=== PATIENT | male | born 1950 | race Caucasian/White ===

== ENCOUNTER 2025-04-16 16:28 | Inpatient (IN) | payer OTHER, SELFPAY ==
[2025-04-16] VITALS (9 sets, daily range): BP systolic 151–187; BP diastolic 72–112; BMI 49.1
--- NOTE | 2025-04-16 12:44 | ED.GENMED ---
History of Present Illness
<Ade Flanagan MD, Resident - Last Filed: 04/16/25 15:48>
General
Chief Complaint: Breathing Problem
Source: patient, spouse and family
Exam Limitations: none
Time Seen by Provider: 04/16/25 12:42
History of Present Illness
History of Present Illness:
74-year-old male with a past medical history of hypertension, anxiety, claustrophobia, panic disorder and who has not seen a medical provider in quite some time comes to the ED at the request of his family due to recent difficulty breathing for the
past couple of months. He has not been able to walk up a hill and his shortness of breath occurs mainly upon exertion. He also describes that his bilateral lower extremities have been swollen and the right has been discolored and releasing
discharge for a few months now. He went to the urgent care a few months back who recommended that he should get bilateral lower extremity ultrasounds but he never did.
Past History
<Ade Flanagan MD, Resident - Last Filed: 04/16/25 15:48>
Past History
ED Past Medical History: None; Negative Asthma, HTN, Hypercholesterolemia or NIDDM
ED Past Surgical History: Appendectomy
Social History
Tobacco: Smoker (Cigars)
Alcohol: Occasional (1-3 small bottles a week)
Drug: None
Personal:
Living: with family
Review of Systems
<Ade Flanagan MD, Resident - Last Filed: 04/16/25 15:48>
Review of Systems
Allergies reviewed?: Yes
Constitutional: Reports weight gain and fatigue
EENT: Reports no symptoms
Respiratory: Reports trouble breathing
Cardiac: Reports no symptoms
ABD/GI: Reports no symptoms
: Reports no symptoms
Musculoskeletal: Reports no symptoms
Skin: Reports other (Bilateral lower extremity skin pain)
Neurological: Reports no symptoms
Endocrine: Reports no symptoms
Hematologic/Lymphatic: Reports no symptoms
Psychiatric: Reports anxiety and other (Claustrophobic)
Phy Exam
<Ade Flanagan MD, Resident - Last Filed: 04/16/25 15:48>
General Physical Exam
General Presentation: mild distress
General Skin: warm and dry
General Habitus: obese
General Mental: alert
Cardiovascular Exam
Cardiovascular Exam: regular rate/rhythm, no murmur and normal peripheral pulses
Heart Sounds: normal
Pulmonary Exam
Pulmonary Exam: generalized wheezing and respiratory distress
Respiratory Effort: tachypnea
Oxygen Status: oxygen 6 liters via NC
Cough: no cough
Breath Sounds: Wheeze: right upper
Gastrointestinal Exam
Gastrointestinal Exam: non tender, soft and distended
Auscultation of Abdomen: normal
Musculoskeletal Exam
Musculoskeletal Exam: edema (Bilateral lower extremity)
Skin Exam
Skin Exam: redness (Right lower leg red, oozing)
Scores
<Ade Flanagan MD, Resident - Last Filed: 04/16/25 15:48>
Heart Failure Risk
Heart Failure Risk Score: Yes
History of Stroke or TIA: No
History of intubation for respiratory distress: No
Heart rate on ED arrival >/= 110: No
SaO2 <90% on arrival on room air: Yes
HR >/=110 during 3min walk test (or too ill to perform test): No
ECG has acute ischemic changes: No
Urea >/=12mmol/L (BUN 33.6mg/dL): No
Serum CO2>/=35mmol/L: Yes
Troponin I or T elevated to DE Level (0.4mg/dL): Yes
NT-proBNP >/=5,000ng/L (5,000pg/ml): No
HF Risk Score: 5
Admission Status: VERY HIGH RISK 39.8% Consider admission to hospital
<Jama Vizcarra MD - Last Filed: 04/16/25 19:50>
Heart Failure Risk
HF Risk Score: 5
Admission Status: VERY HIGH RISK 39.8% Consider admission to hospital
Course
<Ade Flanagan MD, Resident - Last Filed: 04/16/25 15:48>
Orders/Labs/Results
Orders:
Orders
04/16/25 Breakfast
Cholesterol Lowering
At Your Request: Limited Participation
Fluid Restriction: 1200 mL/day (40 oz)
Cholesterol Lowering: Sodium, 2 Gram
04/16/25 12:19
ECG [Electrocardiogram (*1)] Urgent
Reason for Study: Chest Pain
EKG- Treatment ONCE
04/16/25 13:35
Pulse Ox/cont/shift [RESP] Stat
Quantity: 1
04/16/25 13:52
Complete Blood Count/With Diff Urgent
Comprehensive Metabolic Panel Urgent
Magnesium Urgent
NT-proBNP Urgent
Troponin I Urgent
04/16/25 14:05
Dexamethasone Sod Phosphate [Decadron] 6 mg IV NOW STA
Furosemide [Lasix] 80 mg IV NOW STA
Ipratropium/Albuterol Sulfate [Duoneb] 3 ml INH R NOW ONE
04/16/25 14:06
Labetalol HCl [Trandate] 10 mg IV NOW STA
04/16/25 14:34
CR Chest Portable - 1 View Urgent
Comment:
Reason For Exam: sob
Reason Study Needs to be Portable: Patient Unstable
04/16/25 14:49
US Legs, Bilateral [US Periph Venous LOWER Ext Deon] Urgent
Comment:
Reason For Exam: leg swelling w pain
04/16/25 16:07
Admit/Transfer Patient As Directed
Co-Sign Provider:
Level of Care: Inpatient admission
Assign to:: IMU- Intermediate Care
Physician / Group: sharif
Diagnosis: CHF
Reason for Hospitalization: CHF
Expected length of stay greater than two midnights?: Yes
ELOS- Estimated Length of Stay in days: 3
I certify the patient meets the requirements for IP care: Yes
PRN Pain Medication Management As Directed
May give lesser potent ordered pain med per pt: Yes
preference::
Protocol:: Medication orders for pain may be administered in a
manner that supports deferring to patient preference
when the pt is:
- Requesting an ordered lesser potent pain medication.
Least to most potent pain medications are defined
as: acetaminophen < NSAID < tramadol < opioids
(morphine, oxycodone, hydromorphone).
- Requesting a lesser dose of the same medication IF
ORDERED.
- Requesting a less intrusive route of administration
if both routes are prescribed by the provider (PO <
IV).
04/16/25 16:08
Code Status As Directed
Resuscitation Status: Full Code
04/16/25 17:14
Echo 2D MMode Color/Doppler Routine
Reason for Study: heart failure
CARDIOLOGY CONSULT Routine
Consulting Provider: Akil Bradley
Was physician already notified: Yes
HF DIETARY CONSULT Routine
HF EDUCATOR CONSULT Routine
Comment:
Activity As Directed
Activity Level: As Tolerated
Intake/ Output As Directed
Frequency: Per unit guidelines
Patient Education As Directed
Type: CHF folder
Comment: give on admission. Document in Interdisciplinary Education record
Sleep Apnea Assessment by RN As Directed
Comment:
Physician Instructions:
Vital Signs As Directed
Frequency: Other
Additional Instructions:: Q12 or per unit guidelines if more frequent.
Weight As Directed
Frequency: Daily
Type of Scale: Standing Scale
Comment: Daily morning weight. If unable to stand, use balanced bed scale.
Weight As Directed
Frequency: Once
Type of Scale: Standing Scale
Comment: Upon Admission. If unable to stand, use balanced bed scale.
Pulse Ox/cont/shift [RESP] Routine
Quantity: 1
Special Instructions: Daily pulse oximetry at rest. If greater than 92% at rest also obtain pulse oximetry
while ambulating as tolerated.
DX Deep Vein Thrombosis Video Routine
04/16/25 18:00
Enoxaparin Sodium [Lovenox] 40 mg SC QPM
04/16/25 20:00
Troponin I Q6H
Comment: at admission & every 6 hours x 2 (3 total), ECG to be done with each level
04/17/25 02:00
Troponin I Q6H
Comment: at admission & every 6 hours x 2 (3 total), ECG to be done with each level
04/17/25 06:00
Basic Metabolic Panel IN AM
Cardiovascular Evaluation IN AM
Magnesium IN AM
TSH Reflex To Free T4 IN AM
04/17/25 08:00
Furosemide [Lasix] 40 mg IV BID AT 0800,1600
Losartan [Cozaar] 25 mg PO DAILY
04/18/25 06:00
Basic Metabolic Panel IN AM
04/19/25 06:00
Basic Metabolic Panel IN AM
Abnormal Lab Results
04/16/25
13:52
Hct 54.2 H %
(39.0-52.0)
MCV 96.3 H fL
(80.0-94.0)
MCHC 30.1 L g/dL
(33.0-37.0)
Abs Immat Gran (auto) 0.1 H 10^3/uL
(0-0.05)
Absolute Neuts (auto) 7.5 H 10^3/uL
(1.4-6.5)
Absolute Lymphs (auto) 0.6 L 10^3/uL
(1.2-3.4)
Absolute Monos (auto) 0.7 H 10^3/uL
(0.1-0.6)
Immature Gran % 0.9 H %
(0-0.5)
Neutrophils % 83.5 H %
(42.2-75.2)
Lymphocytes % 6.4 L %
(20.5-51.1)
Chloride 95 L mmol/L
(98-107)
Carbon Dioxide 38 H mmol/L
(22-30)
BUN 30 H mg/dl
(9-20)
Glucose 119 H mg/dl
(70-99)
Troponin I 0.296 H* ng/ml
04/16/25 13:52
04/16/25 13:52
Vital Signs
Initial and Last Documented VS:
Initial Vital Signs
Temp Pulse Resp BP Pulse Ox
98.5 F 90 24 166/110 80
04/16/25 12:27 04/16/25 12:27 04/16/25 12:27 04/16/25 12:27 04/16/25 12:27
Last Documented Vital Signs
Temp Pulse Resp BP Pulse Ox
98.4 F 77 26 151/94 94
04/16/25 17:34 04/16/25 18:30 04/16/25 18:30 04/16/25 18:14 04/16/25 18:30
<Jama Vizcarra MD - Last Filed: 04/16/25 19:50>
Orders/Labs/Results
Orders:
Orders
04/16/25 Breakfast
Cholesterol Lowering
At Your Request: Limited Participation
Fluid Restriction: 1200 mL/day (40 oz)
Cholesterol Lowering: Sodium, 2 Gram
04/16/25 12:19
ECG [Electrocardiogram (*1)] Urgent
Reason for Study: Chest Pain
EKG- Treatment ONCE
04/16/25 13:35
Pulse Ox/cont/shift [RESP] Stat
Quantity: 1
04/16/25 13:52
Complete Blood Count/With Diff Urgent
Comprehensive Metabolic Panel Urgent
Magnesium Urgent
NT-proBNP Urgent
Troponin I Urgent
04/16/25 14:05
Dexamethasone Sod Phosphate [Decadron] 6 mg IV NOW STA
Furosemide [Lasix] 80 mg IV NOW STA
Ipratropium/Albuterol Sulfate [Duoneb] 3 ml INH R NOW ONE
04/16/25 14:06
Labetalol HCl [Trandate] 10 mg IV NOW STA
04/16/25 14:34
CR Chest Portable - 1 View Urgent
Comment:
Reason For Exam: sob
Reason Study Needs to be Portable: Patient Unstable
04/16/25 14:49
US Legs, Bilateral [US Periph Venous LOWER Ext Deon] Urgent
Comment:
Reason For Exam: leg swelling w pain
04/16/25 16:07
Admit/Transfer Patient As Directed
Co-Sign Provider:
Level of Care: Inpatient admission
Assign to:: IMU- Intermediate Care
Physician / Group: sharif
Diagnosis: CHF
Reason for Hospitalization: CHF
Expected length of stay greater than two midnights?: Yes
ELOS- Estimated Length of Stay in days: 3
I certify the patient meets the requirements for IP care: Yes
PRN Pain Medication Management As Directed
May give lesser potent ordered pain med per pt: Yes
preference::
Protocol:: Medication orders for pain may be administered in a
manner that supports deferring to patient preference
when the pt is:
- Requesting an ordered lesser potent pain medication.
Least to most potent pain medications are defined
as: acetaminophen < NSAID < tramadol < opioids
(morphine, oxycodone, hydromorphone).
- Requesting a lesser dose of the same medication IF
ORDERED.
- Requesting a less intrusive route of administration
if both routes are prescribed by the provider (PO <
IV).
04/16/25 16:08
Code Status As Directed
Resuscitation Status: Full Code
04/16/25 17:14
Echo 2D MMode Color/Doppler Routine
Reason for Study: heart failure
CARDIOLOGY CONSULT Routine
Consulting Provider: Akil Bradley
Was physician already notified: Yes
HF DIETARY CONSULT Routine
HF EDUCATOR CONSULT Routine
Comment:
Activity As Directed
Activity Level: As Tolerated
Intake/ Output As Directed
Frequency: Per unit guidelines
Patient Education As Directed
Type: CHF folder
Comment: give on admission. Document in Interdisciplinary Education record
Sleep Apnea Assessment by RN As Directed
Comment:
Physician Instructions:
Vital Signs As Directed
Frequency: Other
Additional Instructions:: Q12 or per unit guidelines if more frequent.
Weight As Directed
Frequency: Daily
Type of Scale: Standing Scale
Comment: Daily morning weight. If unable to stand, use balanced bed scale.
Weight As Directed
Frequency: Once
Type of Scale: Standing Scale
Comment: Upon Admission. If unable to stand, use balanced bed scale.
Pulse Ox/cont/shift [RESP] Routine
Quantity: 1
Special Instructions: Daily pulse oximetry at rest. If greater than 92% at rest also obtain pulse oximetry
while ambulating as tolerated.
DX Deep Vein Thrombosis Video Routine
04/16/25 18:00
Enoxaparin Sodium [Lovenox] 40 mg SC QPM
04/16/25 20:00
Troponin I Q6H
Comment: at admission & every 6 hours x 2 (3 total), ECG to be done with each level
04/17/25 02:00
Troponin I Q6H
Comment: at admission & every 6 hours x 2 (3 total), ECG to be done with each level
04/17/25 06:00
Basic Metabolic Panel IN AM
Cardiovascular Evaluation IN AM
Magnesium IN AM
TSH Reflex To Free T4 IN AM
04/17/25 08:00
Furosemide [Lasix] 40 mg IV BID AT 0800,1600
Losartan [Cozaar] 25 mg PO DAILY
04/18/25 06:00
Basic Metabolic Panel IN AM
04/19/25 06:00
Basic Metabolic Panel IN AM
Abnormal Lab Results
04/16/25
13:52
Hct 54.2 H %
(39.0-52.0)
MCV 96.3 H fL
(80.0-94.0)
MCHC 30.1 L g/dL
(33.0-37.0)
Abs Immat Gran (auto) 0.1 H 10^3/uL
(0-0.05)
Absolute Neuts (auto) 7.5 H 10^3/uL
(1.4-6.5)
Absolute Lymphs (auto) 0.6 L 10^3/uL
(1.2-3.4)
Absolute Monos (auto) 0.7 H 10^3/uL
(0.1-0.6)
Immature Gran % 0.9 H %
(0-0.5)
Neutrophils % 83.5 H %
(42.2-75.2)
Lymphocytes % 6.4 L %
(20.5-51.1)
Chloride 95 L mmol/L
(98-107)
Carbon Dioxide 38 H mmol/L
(22-30)
BUN 30 H mg/dl
(9-20)
Glucose 119 H mg/dl
(70-99)
Troponin I 0.296 H* ng/ml
04/16/25 13:52
04/16/25 13:52
Vital Signs
Initial and Last Documented VS:
Initial Vital Signs
Temp Pulse Resp BP Pulse Ox
98.5 F 90 24 166/110 80
04/16/25 12:27 04/16/25 12:27 04/16/25 12:27 04/16/25 12:27 04/16/25 12:27
Last Documented Vital Signs
Temp Pulse Resp BP Pulse Ox
98.4 F 77 26 151/94 94
04/16/25 17:34 04/16/25 18:30 04/16/25 18:30 04/16/25 18:14 04/16/25 18:30
<Ade Flanagan MD, Resident - Last Filed: 04/16/25 15:48>
MDM/Problems Addressed
Differential Diagnosis Includes:
Most likely CHF, acute exacerbation COPD
Less likely PE, pneumonia, ACS
MDM/Problems Addressed:
Plan:
- Will check CBC, CMP, BNP plus trops, mag
- Will get two-view chest x-ray to check for any pneumonia, pulmonary edema
- EKG ordered and showed sinus rhythm with first-degree AV block, possible right ventricular hypertrophy and possible inferior and anterolateral infarct
- Rebandaged bilateral lower extremities, right continues to have discharge
- Patient hesitant to get further testing but convinced by his family to remain here and is willing to be admitted if necessary
<Ade Flanagan MD, Resident - Last Filed: 04/16/25 15:48>
*Pulse Oximetry
SaO2: 82
Nasal Cannula flow liters per minute: 4
Oxygen Mode of Delivery: Room air
*Critical Care Note
Total Time (30-74mins, 75-104mins- exclusive of procedures): Not Applicable
<Jama Vizcarra MD - Last Filed: 04/16/25 19:50>
*Pulse Oximetry
Patient hypoxic: yes
*EKG
Interpreted by ED Provider?: Yes
EKG Intrepretation Date: 04/16/25
Heart Rate: 90
Rate: normal
Rhythm: sinus and PVC's
Ischemia: T-wave inversion
<Ade Flanagan MD, Resident - Last Filed: 04/16/25 15:48>
Update Note
Update Note:
Will Give 80mg IV Lasix, start Duo Nebs treatment, start IV Decadron, start IV Labetalol due to increased blood pressure
Troponin elevated but most likely due to acute hypoxia. Will check bilateral lower ext ultrasound
Chest X-Ray unremarkable due to large body habitus
Admit to Tele recommended.
ED Attending Note
<Ade Flanagan MD, Resident - Last Filed: 04/16/25 15:48>
-
Portions of this chart may have been created with voice recognition software.� Occasional wrong word or��sound alike� substitutions may have occurred due to the inherent limitations of voice recognition software.
<Jama Vizcarra MD - Last Filed: 04/16/25 19:50>
ED Attending Note
Patient seen and examined by attending physician: Yes
ED Attending Note:
Patient presents to ED secondary to worsening shortness of breath, along with increased weight gain. Denies fever or chills. Denies coughing. Denies chest pain. Denies back pain. Denies nausea, vomiting, or diarrhea. Denies dizziness. Denies
loss of appetite. Denies recent travel or surgery. Patient unfortunately has not had any evaluation with primary care physician for a long period of time. Patient has noticed increased leg swelling, especially left leg, now with drainage of
fluids, along with diffuse pain. Patient smokes cigar. Drinks alcohol socially. Patient has been less active secondary to increased leg swelling and shortness of breath.
Physical Exam
General: mild distress, acutely ill. afebrile. obese
Head: nc/at. eomi
Neck: supple. no meningeal signs. no jvd
Heart: s1/s2 regular rate and rhythm
Lungs: no acute respiratory distress. clear bilaterally
Abdomen: normal bowel sounds. not tender. mild distention
Neuro: alert and oriented. no focal neurological deficits
Skin: LE B/L venous stasis noted with serosanguineous drainage
Psychiatric: well kept. interactive and cooperative
Extremities: b/l LE pitting edema. no calf tenderness
History and exam concerning for hypoxia, likely multifactorial, including underlying COPD along with fluid retention. Bilateral lower leg swelling noted with venous stasis changes. Doubtful for DVT or acute infection at this time. Patient
requiring 6 L of oxygen via nasal cannula. Patient will be admitted for further evaluation and treatment.
Discharge Plan
Departure
Patient Disposition: Admit
Date of Disposition: 04/16/25
Time of Disposition: 15:32
Admit to: Telemetry
Presentation/result/management discussed w/ accepting MD/DO: Hospitalist
Condition: Fair
Discharge Problem:
Acute and chronic respiratory failure with hypoxia
Interventions
Interventions:
*Risk Screen - Suicide Last Done: 04/16/25 17:51
*General Assessment Last Done: 04/16/25 14:06
*Neglect/Abuse Screening Last Done: 04/16/25 13:24
*ED- Fall Risk Assessment Last Done: 04/16/25 14:06
*ED COVID-19 Vaccine History Last Done: 04/16/25 14:06
*Nursing Disposition Last Done: 04/16/25 17:50
ED- Cardiac Assessment Last Done: 04/16/25 13:24
ED- Pulmonary Assessment Last Done: 04/16/25 13:24
Discharge Date and Time
Discharge Date/Time: 04/16/25 17:51
[2025-04-16 14:10] LABS: Hematocrit 54.2 % (39.0-52.0); Hemoglobin 16.3 g/dL (13.0-18.0); Mean Corp Hgb Conc. 30.1 g/dL (33.0-37.0); Mean Corpuscular Volume 96.3 fL (80.0-94.0); Nucleated Red Blood Cells % 0 % (-); Platelet Count 171 10^3/uL (130-400); Red Cell Dist. Width 14.2 % (11.5-14.5)
[2025-04-16] MEDS: LASIX 80 MG IV (14:19)
[2025-04-16] MEDS: DUONEB 3 ML INH (14:20)
[2025-04-16] MEDS: DECADRON 6 MG IV (14:20)
[2025-04-16 14:28] LABS: ALT (SGPT) 25 U/L (0-50); AST (SGOT) 34 U/L (17-59); Albumin 4.1 g/dl (3.5-5.0); Alkaline Phosphatase 63 U/L (38-126); Blood Urea Nitrogen 30 mg/dl (9-20); Calcium 8.4 mg/dl (8.4-10.2); Carbon Dioxide 38 mmol/L (22-30); Chloride 95 mmol/L (98-107); Glucose 119 mg/dl (70-99); Magnesium 2.1 mg/dl (1.6-2.3); Potassium 5.1 mmol/L (3.5-5.1); Sodium 137 mmol/L (135-145); Total Protein 7.5 g/dl (6.3-8.2); eGFR > 60.00
[2025-04-16] MEDS: TRANDATE 10 MG IV (14:29)
[2025-04-16 14:42] LABS: Troponin I 0.296 ng/ml
--- NOTE | 2025-04-16 15:46 | HPS.HSE ---
Family Physician
-
Family Physician: * NONE
Chief Complaint
-
sob
History of Present Illness
74-year-old male with a past medical history of hypertension, anxiety, claustrophobia, panic disorder presented to us with sob worse with exertion progressively getting worse for past few months. for past two weeks his legs got more swollen and it
is weeping. his abdomen and thigh is swollen. as per he might have gained 20lbs in past 6 months. Patient denies any headache, dizziness or syncope. Patient denied any fever, cough, congestion. Patient denied any chest pain. Patient denied
abdominal pain nausea vomiting diarrhea. Patient denied dysuria hematuria.
Patient received a dose of dexamethasone, Lasix, nebs, labetalol in ER. Admitting for further management
Medical History
Past Medical History
Past Medical History: Reports Other
Additional Past Medical History:
Obstructive sleep apnea
Morbid obesity, COPD, hypertension, panic/anxiety disorder
Past Surgical History: Reports Other
Additional Past Surgical History:
Appendectomy
Right neck excision
Social History
Tobacco: Former Smoker
Alcohol: None
Drug: None
Personal:
Living: With Family
Family History
Family History: Not pertinent
Allergies / Home Medications
Allergies reflects when Allergies were last updated in [facility].
Home Medications with original date entered in [facility]
Allergy/Medication List:
Allergies
Allergy/AdvReac Type Severity Reaction Status Date / Time
No Known Allergies Allergy Verified 04/16/25 12:32
Home Medications
losartan 25 mg tablet 25 mg PO DAILY 11/03/22
Review of Systems
-
Constitutional: Reports Weight Gain
EENT: Reports No Symptoms
Respiratory: Reports Trouble Breathing
Cardiac: Reports No Symptoms
Abdomen/GI: Reports No Symptoms
: Reports No Symptoms
Musculoskeletal: Reports Edema
Skin: Reports No Symptoms
Neurological: Reports Weakness
Endocrine: Reports No Symptoms
Hematologic/Lymphatic: Reports No Symptoms
Psych: Reports No Symptoms
Physical Exam
Vital Signs
Vital Signs
Temp Pulse Resp BP Pulse Ox
98.5 F 70 23 160/75 91
04/16/25 12:27 04/16/25 15:15 04/16/25 15:15 04/16/25 15:13 04/16/25 15:15
Physical Exam
General: Well Developed, Well Nourished and No Apparent Distress
HEENT: NormoCephalic, Moist mucous membranes and Atraumatic
Respiratory: Rales
Cardiac: S1/S2 and Regular Rhythm; No Murmur or Rub
GI: Soft, Non Tender, Non Distended and Normal Bowel Sounds; No Organomegaly
Rectal: Deferred by Provider
Musculoskeletal: No Clubbing, No Cyanosis and Other (Bilateral lower extremities, abdomen swollen)
Skin: No Rash
Neuro: Nonfocal/grossly intact
Psych: Calm
Laboratory Results
-
04/16/25 13:52
04/16/25 13:52
Laboratory Results
Total Bilirubin 1.0 mg/dl (0.2-1.3) 04/16/25 13:52
AST 34 U/L (17-59) 04/16/25 13:52
ALT 25 U/L (0-50) 04/16/25 13:52
Alkaline Phosphatase 63 U/L (38-126) 04/16/25 13:52
Troponin I 0.296 ng/ml H* 04/16/25 13:52
Data Reviewed
-
Diagnostic Radiology: Report Reviewed by me
Lab Data: Labs Reviewed by me
Impression/Plan
-
# Acute hypoxic respiratory failure multifactorial secondary to CHF
- Chest x-ray with impression of Examination is limited by relatively large body habitus.Lungs appear hypoinflated but clear of consolidation.Cardiac silhouette size is enlarged with no evidence for pulmonary edema.
- Obtain echocardiogram
- Diuretics continue
- Strict TANNER, daily weight
- Cardiology consult
- Nebs as needed for short of breath and wheezing
- Decadron in ER
- Obtain duplex of lower extremity
- Patient requiring 6 L of oxygen, continue supplemental oxygen to keep sat greater than 95, wean as tolerated
#Trop elevation likely NSTEMI
- Troponin 0.296
- EKG was sinus rhythm with first-degree AV block, incomplete right bundle branch block
- Continue to trend Trope
# Essential hypertension
- Losartan continued
#DVT prophylaxis
- Lovenox
# CODE STATUS
- Full code
--- NOTE | 2025-04-16 18:14 | PTCARENOTE ---
Patient arrived from ER, voided 750 upon arrival. Bilateral leg wounds open to air. Patient stating that he is feeling better. and patient oriented to plan of care and room policies.
--- NOTE | 2025-04-16 18:29 | W.PN.UPDATE ---
Update Note
Progress Note Update
This is an addendum to H&P written by Rosa Isela Solorio on 04/16/2025. �Patient seen and examined independently with CAREER DEVELOPMENT MANAGER.
74-year-old male past medical history of hypertension, obesity, COPD, anxiety/depression presenting with shortness of breath, lower extremity swelling with weeping from the legs, abdominal swelling and 20 pound weight gain. �No chest pain.
Vital signs show blood pressure 180s improved to 160s. �Patient requiring 4 L of oxygen.
Labs show BNP of 3600. �Troponin 0.296.
Chest x-ray shows no consolidation or pulm edema.
Venous ultrasound shows no evidence of DVT
Patient with hypoxemic respiratory insufficiency secondary to acute CHF exacerbation. �Also hypertensive emergency. �Nonischemic myocardial injury. �Blood pressure improved with labetalol.
40 IV Lasix twice daily. �Check echocardiogram. �Cardiology consulted. �Trend troponins.
--- NOTE | 2025-04-16 19:30 | PTCARENOTE ---
Patient received lying in bariatric sport bed, awake and alert, lying on left side. He c/o feeling tired. He currently denies CP, SOB, N/V. See crane hooker charted on worklist flowsheet. BBS diminished t/o. S1S2 regular. Pedal pulses diminished,
BLE 3+ pitting. BLE discolored, evelin and purplish discoloration. Posterior and lateral calves noted with dry wounds, no longer weeping. Abdomen large/obese and firm lower abdomen with marked swelling and pitting, evelin discoloration. Large lipoma
noted left upper back/lower neck. Patient is refusing any repositioning or cares. Oxygen at 6L/nc. SR with 1st degree AVB on CM. Patient keeps hanging feet off of bed despite being told numerous times that it isn't safe to be in this position. Sport
bed in low and locked position. Call payne within reach. Bed alarm on.
[2025-04-16] MEDS: LOVENOX 40 MG SC (20:56)
[2025-04-16] MEDS: MELATONIN 5 MG PO (20:57)
[2025-04-16] MEDS: TYLENOL 650 MG PO (21:50)
[2025-04-16 22:03] LABS: Troponin I 0.537 ng/ml
--- NOTE | 2025-04-16 22:30 | PTCARENOTE ---
Patient noted with oxygen sats in the 70s. Noted that patient had removed oxygen and he is sleeping with profound snoring, sleep apnea. FRANCISCO JAVIER Holland notified. Orders received for CPAP--patient refusing due to claustrophobia. Midflow orders available if
needed. Sats improved when oxygen replaced.
[2025-04-17] VITALS (37 sets, daily range): BP systolic 110–197; BP diastolic 57–114; PULSE 2–97; BMI 49.1; BMI 48.4
--- NOTE | 2025-04-17 02:50 | PTCARENOTE ---
Patient oxygen levels dropping with sleep to high 70s. Patient is poorly positioned in the bed, hanging feet over the siderail. Boosted with RN x4 assist. HOB up. Oxygenation levels improved with repositioning.
--- NOTE | 2025-04-17 03:35 | PTCARENOTE ---
Patient has notable sleep apnea. His sats are dropping to 85% on 6L. Respiratory therapy notified and request made for patient to be placed on midflow to improve sats.
[2025-04-17 05:18] LABS: Blood Urea Nitrogen 29 mg/dl (9-20); Calcium 8.2 mg/dl (8.4-10.2); Carbon Dioxide 39 mmol/L (22-30); Chloride 94 mmol/L (98-107); Estimated Creatinine Clearance 89 ml/min; Glucose 141 mg/dl (70-99); HDL Cholesterol 40 mg/dl; LDL Cholesterol, Calculated 67 mg/dl; Magnesium 2.2 mg/dl (1.6-2.3); Potassium 5.5 mmol/L (3.5-5.1); Sodium 140 mmol/L (135-145); Very Low Density Lipoprotein 13 mg/dl (0-30); eGFR > 60.00
[2025-04-17 05:36] LABS: Troponin I 0.420 ng/ml
--- NOTE | 2025-04-17 07:18 | PTCARENOTE ---
Report given verbally to Rocky hernandez RN. Questions answered.
--- NOTE | 2025-04-17 07:34 | CON.CAR ---
Addendum entered and electronically signed by Ashwin Maher MD 04/17/25 10:43:
74-year-old man admitted 04/16 with multifactorial dyspnea on exertion subsequently progressing to vent dependent respiratory failure, refusing BiPAP.
PMH: Hypertension, COPD, anxiety, claustrophobia, morbid obesity
PSH/SH/FH/allergies/meds/ROS: As below per Rosa Fernando, reviewed in detail and agree
Outpatient meds: Losartan
Inpatient meds: Aspirin 81 mg a day, fentanyl, MiraLAX, propofol, furosemide 80 mg IV twice daily, metoprolol 2.5 mg IV every 6
197/113, pulse 80, respiratory 28, on vent, afebrile sats 100%, awake, gesturing with his hands, following questions appears anxious, morbidly obese, exam very limited diminished breath sounds, regular rate rhythm without obvious murmurs or gallops
neck veins impossible to assess, severely obese abdomen, modest edema, neuro grossly nonfocal
ECG sinus rhythm, first-degree AV block, low voltage, anterolateral MS, ST-T changes, right axis deviation, incomplete right bundle branch block
chest x-ray probable left pleural effusion/elevated left hemidiaphragm Limited inspiration, cardiomegaly
White count 9, hemoglobin 16.3, ABG 7.41, VOV895, PO281, bicarb 41, proBNP 3600, troponin 0.537
Echo: pending
Impression:
Acute ventilator dependent respiratory failure, multifactorial, related to COPD, morbid obesity, and acute heart failure EF unknown
Other diagnoses as below per Rosa Fernando, note below reviewed in detail and agree unless otherwise specified
Plan:
He presents with vent dependent respiratory failure, likely reflecting severe COPD with an element of heart failure, acute on chronic EF unknown.
Troponin is elevated, suspect non-MS myocardial injury related to heart failure and COPD
Will check echocardiogram. And thereafter begin optimization of GDMT for heart failure based on ejection fraction. Suspect major issues are underlying morbid obesity with COPD.
However, if echo confirms marked reduction in EF related to ischemic cardiomyopathy and prior anterior lateral MS, it is conceivable that heart failure is the major grab driver of his presentation.
Further management to be based upon his hospital course.
Original Note:
Consultation
Consultation Request
Date/Time Consultation Performed: 04/17/25
Requesting Provider: Dr. Dunlap
Performing Provider: Rosa Fernando PA-C for Dr. NAVA Maher
Reason for Consultation: SOB
Medical History
-
Chief Complaint: SOB
History of Present Illness:
Patient is a 74 year old male with PMH of HTN, COPD, anxiety, significant claustrophobia, obesity who presented to [facility] due to SOB particularly upon exertion over the last several months. He has had limited interaction with medical providers as
outpatient due to a significant anxiety/claustrophobia. With reported lower extremity edema with oozing, and weight gain. Overnight patient refused BiPAP, and this morning with limited responsiveness to verbal stimuli and sternal rub. Also with
repetitive lip/tongue movements. ABG with pH 7.2. He was moved to ICU and planned for intubation. proBNP 3600.
PMH:
HTN
COPD
anxiety/claustrophobia
obesity
Past Medical History
Past Medical History: Other (in HPI)
Social History
Tobacco: Former Smoker (cigars)
Alcohol: Occasional
Personal:
Living: With Family
Employment: Retired
Family History
Family History: CAD and Diabetes
Allergies / Home Medications
Allergy/AdvReac Type Severity Reaction Status Date / Time
No Known Allergies Allergy Verified 04/16/25 12:32
�Medication �Instructions �Recorded �Confirmed �Type
losartan 25 mg tablet 25 mg PO DAILY Blood Pressure 11/03/22 04/16/25 History
Review of Systems
-
Unable to obtain full review of systems at this time due to: Patient Intubation
Physical Exam
Vital Signs
Temp Pulse Resp BP Pulse Ox
96.4 F L 84 19 158/87 88
04/17/25 04:37 04/17/25 07:00 04/17/25 07:00 04/17/25 06:00 04/17/25 07:00
Lab Results
04/16/25 13:52
04/17/25 04:30
Troponin I 0.420 ng/ml H* 04/17/25 04:30
Ite-I-Miwqjaiqdlx Pept 3600 pg/ml 04/16/25 13:52
Physical Exam
General: Other (repetitive lip/tongue movements. obese)
HEENT: Normocephalic, Anicteric and Moist Mucous Membranes
Respiratory: Other (no audible wheezes)
Cardiac: S1/S2, Regular Rhythm and Murmur
GI: Soft, Non Tender and Distended
Musculoskeletal: No Clubbing, No Cyanosis and Edema (4+ of B/L LE to level of thigh with discoloration and oozing)
Skin: Warm and Dry
Neuro: Awake (at times, but with limited responsiveness)
Impression / Plan
-
Primary Ged Instructor: last seen by Dr. Kim in 2022
Assessment:
Presentation with SOB
Acute hypoxic respiratory failure requiring urgent intubation 04/17/25
Acute CHF, unknown type
Suspected COPD exacerbation
Elevated troponin
Hyperkalemia
NSVT
HTN
anxiety/claustrophobia
obesity
Cardiac murmur
ECHO 04/17/25: pending
Plan:
- Patient presented with shortness of breath, lower extremity edema, weight gain
- proBNP 3600. Chest x-ray read as no clear pulmonary edema, however study was limited due to patient body habitus. Peripheral vascular ultrasound negative for DVT bilaterally
- Was given 80 mg IV Lasix last evening with good response. Currently on IV Lasix 40 mg twice daily, will increase dose to 80 IV twice daily and assess response. Creatinine stable
- Was transferred to ICU this morning, and underwent urgent intubation at bedside in ICU. Fruit Worker managing
- Blood pressure preintubation was significantly elevated at ~190/110, improved to 110/76 following intubation/sedation. Will follow
- echo pending
- trop peaked at 0.5 and now down trending. started asa. no acute ST abnormalities by EKG.
- also with some brief NSVT on tele overnight. follow K/mag and replete as needed. will add IV lopressor 2.5mg Q6H. hold OP losartan with hyperkalemia
- may require eventual ischemic evaluation. would favor completing inpatient as patient has history of noncompliance likely related to his anxiety
- d/w hospitalist, nursing
Data Reviewed
-
EKG: Tracing Personally Visualized and interpreted
Radiology: Report Reviewed by me
Ultrasound: Report Reviewed by me
Labs: Labs Reviewed by me
Old Records: Reviewed
--- NOTE | 2025-04-17 07:48 | PTCARENOTE ---
Pt found to be obtunded not responding to name or sternal rub RR called. Pt nnow on Bipap Bp 191/113 hr [address] 97% [address] Messina tt
[2025-04-17 07:49] LABS: Glucose - Point of Care 151 mg/dl (70-99)
[2025-04-17 07:58] LABS: B.E. 10.2 mmol/L; O2 Saturation % 96.8 % (94-98); PO2 99 mmHg (83-108)
[2025-04-17 08:00] LABS: PCO2 111 mmHg (35-48)
[2025-04-17 08:01] LABS: HCO3 44.4 mmol/L (21-28)
--- NOTE | 2025-04-17 08:10 | CON.INTV ---
Consultation
Consultation Request
Date/Time Consultation Requested: 04/17/25
Date/Time Consultation Performed: 04/17/25
Performing Provider: Musa
Reason for Consultation: Intubation
Medical History
-
History of Present Illness:
Patient is a 74-year-old male with previous history of hypertension, anxiety, former smoker with suspected COPD and CARLA (never formally diagnosed) presenting with shortness of breath, worsened with exertion. This has been progressively worsening
for the past few months. He had noted in the past 2 weeks that his legs were progressively swelling and weeping. Patient is noncompliant with outpatient follow-up and preventative care. He rarely sees providers as an outpatient. Per he may
have gained about 20 pounds in the last 6 months. He is morbidly obese. Chest x-ray demonstrating very profound low lung volumes. His initial ABG on arrival demonstrating pH 7.2, pCO2 111. Admitted to IMU for BiPAP. He refused overnight. The
patient became more progressively unresponsive throughout the night, rapid response called in IMU. He is now transferred to ICU for intubation.
No further history elicited from patient.
Past Medical History
Past Medical History: Other (see list below)
Social History
Tobacco: Former Smoker
Alcohol: None
Drug: None
Family History
Family History: Reviewed & Not Pertinent
Allergies / Home Medications
Allergies
Allergy/AdvReac Type Severity Reaction Status Date / Time
No Known Allergies Allergy Verified 04/16/25 12:32
Home Medications
�Medication �Instructions �Recorded �Confirmed �Last Taken �Type
losartan 25 mg tablet 25 mg PO DAILY Blood Pressure 11/03/22 04/16/25 02/01/23 History
Review of Systems
-
History Source: Transfer Record
Vitals / Labs / Diagnostic Testing
Vital Signs
Temp Pulse Resp BP Pulse Ox
97.5 F 80 28 197/113 95
04/17/25 07:52 04/17/25 07:47 04/17/25 07:47 04/17/25 07:47 04/17/25 07:47
Lab Data
04/16/25 13:52
04/17/25 04:30
Laboratory Results
04/17/25
07:45
pH 7.21 L
pCO2 111 H*
pO2 99
HCO3 44.4 H*
O2 Delivery Level
Diagnostic Testing:
Physical Exam
-
HEENT: Normocephalic, Anicteric and Other (retrognathia present)
Cardiovascular: S1/S2, Regular Rhythm and Peripheral Edema (weeping, with chronic venous stasis changes BL)
Respiratory: Clear (overall severely diminished) and Other (shallow breathing)
GI: Soft and Distended (obese, protuberant)
Neurology: Other (minimally responsive)
Skin: Warm and Dry
General: Other (lethargic, difficulty arousing)
Assessment
-
Patient is a 74-year-old male with previous history of hypertension, anxiety, former smoker with suspected COPD and CARLA (never formally diagnosed) presenting with shortness of breath, worsened with exertion. This has been progressively worsening
for the past few months. He had noted in the past 2 weeks that his legs were progressively swelling and weeping. Patient is noncompliant with outpatient follow-up and preventative care. He rarely sees providers as an outpatient. Per he may
have gained about 20 pounds in the last 6 months. He is morbidly obese. Chest x-ray demonstrating very profound low lung volumes. His initial ABG on arrival demonstrating pH 7.2, pCO2 111. Admitted to IMU for BiPAP. He refused overnight. The
patient became more progressively unresponsive throughout the night, rapid response called in IMU. He is now transferred to ICU for intubation.
Acute on chronic hypercarbic respiratory failure
Noncompliance with preventative care/CPAP
s/p intubation and mechanical ventilation
Suspect AECOPD
Suspect CHF exacerbation, unknown chronicity
LE edema
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
Obstructive sleep apnea
Morbid (severe) obesity due to excess calories
Chronic obstructive pulmonary disease, no prior PFTs for review
Essential (primary) hypertension
Former smoker
BCC s/p excision 2022
Plan
Lethargic and minimally arousable, not responding to sternal rub--decision for intubation for hypercarbia
Psychiatric history noted above including anxiety/depression, panic attack not on home meds
Pain/sedation: fent PRN and gtt if needed
RASS goals: 0 to -1
Hemodynamically stable, not requiring pressors.
Cardiac history reviewed--HTN, suspect CHF
No prior ECHO for review--new study pending
ProBNP >3000, agree with IV lasix
Monitor on telemetry
Intubated for acute on chronic CO2 retention, refused CPAP on admission
ABG 7.21/111/99/44.4--> 7.41/65/81/41.2/97%
Vent setting reviewed: AC 450/22/40/5+
Prior history of lung disease: suspect COPD and CARLA but has never seen OP Pulm
notes that she has been trying to get patient to see providers but he remains noncompliant
Supplemental O2 as indicated to maintain sats > 89%
CXR/CT reviewed indicating very low lung volumes
We had a serious discussion on BIPAP post extubation and compliance but patient was reluctant to answer/decide
Will need to FU discussion with family as his risk for re-intubation and tracheostomy is high
NPO, resume diet when able
Extrusion Machine Operator recommendations
Aspiration precautions, HOB > 30 degrees
Speech therapy eval can be considered if at elevated risk
GI prophylaxis if indicated for mechanical ventilation >48 hours, prior history of GERD, stress ulcer formation in the critically ill
Creat at baseline, no history of renal disease
Void trials
Follow urine output, critical I/Os
Replete electrolytes as needed
No signs/symptoms suspicious for infectious etiology at this time
Observe off antibiotics for now
Follow fever trend, WBC count
CBC stable, no signs of bleeding or coagulopathy.
DVT prophylaxis as assessed based on risk, including mechanical SCDs
Can transfuse if indicated for Hb <7, plt < 10
INR WNL
No prior h/o diabetes or thyroid disease
Monitor accuchecks PRN/SS coverage if needed
Hyperglycemia noted, will check HbA1c
Diagnostic Data
Chest X-Ray: 04/16/25- Examination is limited by relatively large body habitus. Lungs appear hypoinflated but clear of consolidation.
US 04/16/25- No evidence of deep venous thrombosis bilaterally.
CT Scan:
Echo:
PFT's:
Reports and relevant images were personally reviewed.
Critical Care time 75 mins -- The patient is admitted for acute critical illness for the treatment of vital organ failure and/or prevention of further life-threatening conditions. Total care includes time spent in review of history, physical exam,
medications, hemodynamic/ventilator parameters, laboratory data, imaging and discussion with house staff, pharmacy, respiratory therapy, golf sales manager, and nursing. Additional time spent at intubation, transfer to ICU, discussion with family.
--- NOTE | 2025-04-17 08:15 | PTCARENOTE ---
Dr Steve saw pt. Pt to ICU for intubation . Report to Lila Rn
--- NOTE | 2025-04-17 08:29 | W.PN.ANESINT ---
Anesthesia Intubation Note
- Intubation Note
Intubation Note:
Diagnosis: resp distress
Blade: videoscope mac 4
Tube Size: 8
Depth: 26 lip
Side Taped: right
Drugs Used: 100mg prop, 120 mg succ
Grade View: 1
EtCO2 Present: yes
Atraumatic: yes
Attempts: yes
Insertion Start and Stop Time: 815-820
SaO2 Pre:96
SaO2 Post:99
Glidescope Used: yes
Other Airway Adjustments:
Pre-Oxygenated: yes
Portable Chest X-Ray: no
RSI: no
Suctioned: no
Bilateral Breath Sounds Confirmed: yes
Vent Settings:
Settings per ___Attending Physician
--- NOTE | 2025-04-17 08:30 | W.PN.UPDATE ---
Addendum entered and electronically signed by Marva Dunlap MD 04/17/25 08:50:
Pt was wearing BiPAP, tongue movements, leg twitching, not responsive to verbal or physical stimuli. ABG as below--decision made to intubate. at bedside and aware
.
Original Note:
Update Note
Progress Note Update
Rapid response was called in room 3343. Upon arrival, patient was minimally responsive to sternal rub. Dr. Dunlap at bedside. ABG showed pH 7.21, PCO2 111, PO299, HCO3 44. Planned to intubate patient after transferring to ICU room [address] Dipika Vigil informed. Anesthesia called for intubation. Preintubation patient's blood pressure was 191/114. After intubation and dropped to 117/ 111 mmHg.
[2025-04-17 08:54] LABS: INR 1.07; PT 14.4 Sec (11.4-14.6)
[2025-04-17 08:55] LABS: APTT 21.2 Sec (23.4-35.0)
[2025-04-17] MEDS: SUBLIMAZE 100 MCG IV (08:56)
[2025-04-17 09:30] LABS: B.E. 12.9 mmol/L; O2 Saturation % 97.9 % (94-98); PCO2 65 mmHg (35-48); PO2 81 mmHg (83-108)
[2025-04-17 09:34] LABS: O2 Therapy %Oxygen/Room Air 60%
[2025-04-17 09:35] LABS: HCO3 41.2 mmol/L (21-28)
[2025-04-17] MEDS: SUBLIMAZE 50 MCG IV ×5 (09:45→20:55)
--- NOTE | 2025-04-17 10:10 | W.PN.HOSP.TC ---
Addendum entered and electronically signed by Marva Dunlap MD 04/17/25 19:58:
I saw and evaluated the patient independently. I reviewed the resident�s note and agree with findings and plan as documented by Dr. Neil.
Events of rapid responsive and update note noted.
GENERAL: well developed, well nourished, male, intubated and now more awake--asking for restraints to be loosened
HEENT: NC/AT--intubated
HEART: regular rate and rhythm, +S1, +S2
LUNGS : poor air movement bilaterally
ABDOM: soft, nontender, nondistended, + bowel sounds
EXT: no cyanosis, clubbing, or edema
NEUROLOGIC: grossly intact
Acute hypercapnic/hypoxemic respiratory failure--pt likely CO2 retainer chronically with elevated bicarb of >35--pt started on O2 and was up to 6L--noncompliant with meds, CARLA eval, etc--pt obtunded earlier requiring intubation---ABG pH 7.21, PCO2
111, PO299, HCO3 44--CXR limited--NPO--consult resolute professional--likely due to noncompliance--doubt PE but will rule out with CT chest PE protocol--more likely CHF from untreated CARLA with obesity/hypoventilation syndrome--apprec cards--will need more
aggressive diuresis (lasix 80- mg IV BID)--daily weights, I/Os--SBT likely in AM--discussion re: reintubation and following up with BiPAP and treatments had by resolute professional with family
Troponin elevation--likely due to nonmyocardial troponin elevation from hypoxia/hypercapnia but cannot rule out NSTEMI at this time as troponins are elevated--apprec cards--check ECHO--EKG showed normal sinus rhythm with first-degree AV block,
incomplete RBBB
COPD with likely chronic CO2 retention--no PFTs--will need Outpt pulm follow up
Essential hypertension with hypertensive urgency--elevated BPS--improved post intubation--consideration for cardene drip was undertaken but BP improved with intubation--when able cont losartan--may need IV BP meds
Claustrophobia/panic disorder-- Advised patient to follow with psychiatry outpatient
Morbid obesity- Affects all aspects of care
Noncompliance to medications--Affects all aspects of care--Restaurant Crew discussed high risk for respiratory distress and reintubation. He does not want to pursue tracheostomy but also does not want to pursue BiPAP or remain compliant with treatment.
Declines hospice.
DVT proph-- Lovenox
CODE STATUS-- full code--if pt remains noncompliant with treatment for BP, CARLA, COPD, CHF etc..then likely should be DNR/DNI with hospice as goal of treatment--as this is likely to happen again without serious lifestyle changes and medication
compliance
Total Critical Care Time 40 minutes. I was immediately available to the patient and staff. I personally examined, reviewed labs, diagnostic images/reports, interpretations, treatment plans, discussed patient care with other providers and family
or caregivers (if patient is unable to make decisions), entered orders as appropriate and documented the medical record.
Original Note:
Today's Communication/Plan
-
CT ordered to rule out pulmonary embolism though unlikely.
Will consult pulmonary and cardiology.
Per resolute professional Dr. Dipika Vigil, will likely continue ventilation for the next 24 hours with ongoing discussions regarding BiPAP and compliance to medications.
Assessment / Plan
Assessment / Plan
74-year-old male with a past medical history of hypertension, anxiety, claustrophobia, panic disorder presented to the ED with shortness of breath with exertion that has progressively gotten worse over the past few months. For the last 2 weeks he
has had increased leg swelling and they are now weeping. His abdomen and thigh are also swollen. Patient has gained 20 pounds last 6 months per . He denies syncope, dizziness, headache, fever, congestion, cough, chest pain, abdominal pain,
nausea, vomiting, diarrhea, dysuria or hematuria. Patient has not been compliant to prescription medications. He received a dose of dexamethasone, Lasix, nebs and labetalol in the ER and was admitted for acute hypoxic respiratory failure.
Assessment/plan:
# Acute hypercapnic respiratory failure
- ABG showed pH 7.21, PCO2 111, PO299, HCO3 44.
- Chest x-ray showed impression of examination limited by relatively large body habitus. Lungs appear hyperinflated but clear of consolidation. Cardiac silhouette size is enlarged with no evidence of pulmonary edema.
- Rapid response called, patient intubated by anesthesia. Admitted to ICU under Dr. Dipika Vigil.
- NPO
- Will order CT chest to rule out pulmonary embolism
- Continue diuretics, daily weight checks
- Will consult pulmonary, cardiology
# Trop elevation
-Troponin peaked at 0.5 last night. Will continue to trend troponin.
- EKG showed normal sinus rhythm with first-degree AV block, incomplete RBBB
# Essential hypertension
-Losartan continued
# Claustrophobia/panic disorder
- Advised patient to follow with psychiatry outpatient
# Morbid obesity
- Affects all aspects of care
# Noncompliance to medications
-Affects all aspects of care
-Restaurant Crew discussed high risk for respiratory distress and reintubation. He does not want to pursue tracheostomy but also does not want to pursue BiPAP or remain compliant with treatment. Declines hospice.
DVT prophylaxis Lovenox
CODE STATUS full
Anticipated Discharge: > 48 hours
Subjective/Interval History
-
Date of Service: April 17, 2025
74-year-old male with a past medical history of hypertension, anxiety, claustrophobia, panic disorder presented to the ED with shortness of breath with exertion that has progressively gotten worse over the past few months. For the last 2 weeks he
has had increased leg swelling and they are now weeping. His abdomen and thigh are also swollen. Patient has gained 20 pounds last 6 months per . He denies syncope, dizziness, headache, fever, congestion, cough, chest pain, abdominal pain,
nausea, vomiting, diarrhea, dysuria or hematuria. Rapid response was called around 8 AM this morning when patient was minimally responsive to sternal rub. Patient was reevaluated at 10:20 AM, and is trying to use his phone. Informed that patient
is intubated due to poor exchange. He nods his head to this information. Patient asks for his restraints to be loosened so he can use his phone
Objective Data
-
Labs:
Laboratory Results
04/17/25 04/17/25 04/17/25
04:30 07:45 08:20
PT
INR
APTT
HCO3 44.4 H*
Sodium 140 Pending
Potassium 5.5 H Pending
Chloride 94 L Pending
Carbon Dioxide 39 H Pending
BUN 29 H Pending
Creatinine 1.1 Pending
Glucose 141 H Pending
Calcium 8.2 L Pending
Total Bilirubin Pending
AST Pending
ALT Pending
Alkaline Phosphatase Pending
04/17/25 04/17/25
08:38 09:21
PT 14.4
INR 1.07
APTT 21.2 L
HCO3 41.2 H*
Sodium
Potassium
Chloride
Carbon Dioxide
BUN
Creatinine
Glucose
Calcium
Total Bilirubin
AST
ALT
Alkaline Phosphatase
Vital Signs:
Vital Signs
Temp Pulse Resp BP Pulse Ox
97.6 F 80 28 197/113 100
04/17/25 08:22 04/17/25 07:47 04/17/25 07:47 04/17/25 07:47 04/17/25 08:29
I&O
04/16/25 04/17/25 04/18/25
06:59 06:59 06:59
Intake Total 360 / 360
Output Total 2250 / 2250
Balance -1890 / -1890
Review of Systems
-
History Source: Family
All other systems: Reviewed and negative
Constitutional: Reports Weight Gain
EENT: Reports No Symptoms Reported
Respiratory: Reports Trouble Breathing
Cardiac: Reports No Symptoms
Abdomen/GI: Reports No Symptoms
Breast: Reports No Symptoms
Genitourinary: Reports No Symptoms
Musculoskeletal: Reports Edema
Skin: Reports No Symptoms
Neuro: Reports No Symptoms
Endocrine: Reports No Symptoms
Hematologic / Lymphatic: Reports No Symptoms
Allergy / Immunology: Reports No Symptoms
Physical Exam
-
General: Respiratory Distress, Intubated and Morbidly Obese
HEENT: Normocephalic, Atraumatic, Nose Appears Normal and Ears Appear Normal
Respiratory: Clear to Auscultation
Cardiac: Regular Rhythm and S1/S2
Breast: Deferred by me
Rectal: Deferred by Provider
Musculoskeletal: Edema, Right Lower Extrem (With weeping) and Edema, Left Lower Extrem (With weeping)
Skin: Warm
Neuro: Awake
Hematologic / Lymphatic: No Lymphadenopathy
Psych: Calm
Data Reviewed
-
Labs: Labs Reviewed by me and Discussed with Physician
Old Records: Reviewed
--- NOTE | 2025-04-17 10:16 | PTCARENOTE ---
Pt rec'd as emergent transfer to ICU from IMU at approx 0800 for intubation, see ABG results. Pt on bipap-non purposeful movements noted. Bedside report from Rocky LESLIE rec'd during transfer. Pt intubated in ICU 3360 by anesthesia at 08:20. Plan
discussed with and patient by Devil Tender, attending and cardiology. Pt is awake and responding to verbal commands, agitated and resistant to cares, gesturing to have restraints off, wanting Iphone, writing on paper, attempting to calm
patient. Education and emotional support given. PRN Fent boluses administered per NOV. Orders noted, labs drawn, CXR performed, please see worklist for assessment and futher documentation. Care ongoing.
[2025-04-17] MEDS: LASIX 80 MG IV ×2 (10:35→15:52)
[2025-04-17 10:46] LABS: ALT (SGPT) 22 U/L (0-50); AST (SGOT) 31 U/L (17-59); Albumin 3.7 g/dl (3.5-5.0); Alkaline Phosphatase 52 U/L (38-126); Blood Urea Nitrogen 31 mg/dl (9-20); Calcium 8.6 mg/dl (8.4-10.2); Chloride 93 mmol/L (98-107); Estimated Creatinine Clearance 98 ml/min; Glucose 146 mg/dl (70-99); Potassium 5.4 mmol/L (3.5-5.1); Sodium 140 mmol/L (135-145); Total Protein 7.1 g/dl (6.3-8.2); Triglycerides 51 mg/dl (10-149); eGFR > 60.00
--- NOTE | 2025-04-17 10:47 | WOUNDNOTE ---
L LATERAL LOWER LEG
--- NOTE | 2025-04-17 10:47 | WOUNDNOTE ---
L MEDIAL POSTERIOR LOWER LEG
--- NOTE | 2025-04-17 10:48 | WOUNDNOTE ---
R LATERAL POSTERIOR LOWER LEG
--- NOTE | 2025-04-17 10:48 | WOUNDNOTE ---
R MEDIAL POSTERIOR LOWER LEG
--- NOTE | 2025-04-17 10:50 | WOUNDNOTE ---
WON RN note: Patient admitted with acute and chronic respiratory failure, hypoxia.
See H&P for complete history. Lives with Khalida.
PMH: 74-year-old male with a past medical history of hypertension, anxiety, claustrophobia, panic disorder and who has not seen a medical provider in quite some time comes to the ED at the request of his family due to recent difficulty breathing for
the past couple of months. He has not been able to walk up a hill and his shortness of breath occurs mainly upon exertion. He also describes that his bilateral lower extremities have been swollen and the right has been discolored and releasing
discharge for a few months now.
Wound Location and type/assessment: Patient admitted with: B/L lower leg edema and weeping venous stasis ulcers. R leg mostly crusted with thin layer of calvo, scant weeping. L leg with scattered cluster of weeping serosanguineous drainage, no odor.
+ pedal pulses audible with Doppler. Heels are intact. Khalida at bedside stated that at home, patient sleeps with legs dependent. Patient recently intubated and transferred from IMU. Spoke to nurse Disa who stated she just assessed sacrum and
confirmed intact. Abdomen with blanchable pink skin no open sores, mild MASD in abdominal skin folds.
Appetite: NPO currently.
Pressure redistribution devices in place: on bariatric sports bed, turns with assist. Pillows under calves.
Plan: With assist of PCT applied Xeroform, ABD pads and rae to leg wounds. Janusz wraps knee high applied. Leg elevation when sitting in recliner chair. Dr. Dunlap at bedside and aware.
Updated nurse Lila on the above, care plan and will follow as needed.
Note to case management of equipment requested for discharge: VN for wound care if can't do.
Recommend follow up at wound care center upon discharge.
[2025-04-17 10:56] LABS: Carbon Dioxide 42 mmol/L (22-30)
--- NOTE | 2025-04-17 11:52 | CARDSERVLU ---
Echocardiogram with Lumason completed after protocol screening completed. Allergies verified.
Patent IV site: _left AC____
IV site flushed with 0.9% NaCl pre and post administration.
Diluted bolus method utilized to enhance visualization of ventricular feliz.
Total volume given: _5.0___ mL
Patient tolerated all procedures well without complications.
[2025-04-17 13:00] LABS: Glycohemoglobin (HgbA1c) 6.5 % (4.0-5.6)
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
--- NOTE | 2025-04-17 14:27 | PTCARENOTE ---
Pt's condom cath fell off, pt changed and rewashed with CHG wipes, entire linen change performed. PRN Fent bolus given for agitation. Care ongoing. Family at bedside, discussed plan with Dr. Mayorga.
[2025-04-17 15:07] LABS: Troponin I 0.364 ng/ml
[2025-04-17 15:08] LABS: ALT (SGPT) 22 U/L (0-50); AST (SGOT) 32 U/L (17-59); Albumin 3.8 g/dl (3.5-5.0); Alkaline Phosphatase 63 U/L (38-126); Blood Urea Nitrogen 30 mg/dl (9-20); Calcium 8.5 mg/dl (8.4-10.2); Chloride 90 mmol/L (98-107); Estimated Creatinine Clearance 109 ml/min; Glucose 119 mg/dl (70-99); Potassium 3.9 mmol/L (3.5-5.1); Sodium 137 mmol/L (135-145); Total Protein 7.0 g/dl (6.3-8.2); eGFR > 60.00
[2025-04-17 15:32] LABS: Carbon Dioxide 42 mmol/L (22-30)
--- NOTE | 2025-04-17 16:44 | CM ---
Patient seen at bedside in ICU with physicians. Patient present and patient lives with in a 2 story home with 2 steps to enter. Patient does not go to PCP and he goes to [facility] on [address] Patient intubated and has no home O2 or CPAP. CM
will continue to follow for discharge planning needs.
Plan; home with /VN vs SNF pending medical treatment plan
[2025-04-17] MEDS: LOVENOX 40 MG SC (17:41)
--- NOTE | 2025-04-17 18:12 | PTCARENOTE ---
Order for chest CT to r/o PE rec'd from resident. Order clarified, adjusted to 8 pm.
--- NOTE | 2025-04-17 18:33 | PTCARENOTE ---
Sat maintaining low 90s, pt sleeping. Fio2 increased to 65% by RT at this time. Pt arousable, following commands. Care ongoing.
[2025-04-17] MEDS: VERSED 2 MG IV ×2 (20:13→20:30)
--- NOTE | 2025-04-17 21:59 | PTCARENOTE ---
Pt received at 19:00. Ox2-3, drowsy but restless, easily arouable to verbal stimuli. Anxious and agitated when awake. #8 ETT, 24cm at the lip, repositioned from R to C. AC 22/450/65%/+5. Suctions for large amout of thick white secretions via ETT and
orally. Breath sounds diminished t/o. Sinus geovany w/ 1st degree AVB, HR 50. +3 LE edema. DP pulses weak but palpable. Abdomen round, firm. +bowel sounds, no BM noted at this time. 25condom cath in place, voiding yellow urine. Venous ulcers to B/L
LE--dressing remains intact at this time.
Pt taken for chest CTA approximately 20:81-[id number] CRNP made aware. PRN versed and fentanyl given for agitaiton involving CT scan. Upon returning to room, pt now calm and cooperative. Safe environment maintained, repositioned, call payne
within reach.
[2025-04-18] VITALS (30 sets, daily range): BP systolic 91–152; BP diastolic 55–91; PULSE 2–73; O2SAT 95; BMI 47.7
[2025-04-18] MEDS: SUBLIMAZE 50 MCG IV ×3 (01:07→06:25)
--- NOTE | 2025-04-18 01:40 | PTCARENOTE ---
Pt assessment grossly unchanged. Condom cath no longer intact, incontinent--x1 saturated pad. Pt repositioned and CHG bath provided.
--- NOTE | 2025-04-18 03:12 | PTCARENOTE ---
Pt coughing frequently and vent alarming for high pressure. Pt drowsy, responds to verbal stimuli. Nods yes when asked if he is in pain, PRN fentanyl IVP given.
[2025-04-18 03:32] LABS: ALT (SGPT) 21 U/L (0-50); AST (SGOT) 34 U/L (17-59); Albumin 3.5 g/dl (3.5-5.0); Alkaline Phosphatase 51 U/L (38-126); Blood Urea Nitrogen 36 mg/dl (9-20); Calcium 8.1 mg/dl (8.4-10.2); Chloride 92 mmol/L (98-107); Estimated Creatinine Clearance 98 ml/min; Glucose 130 mg/dl (70-99); Magnesium 2.1 mg/dl (1.6-2.3); Potassium 3.9 mmol/L (3.5-5.1); Sodium 138 mmol/L (135-145); Total Protein 6.6 g/dl (6.3-8.2); eGFR > 60.00
[2025-04-18 03:34] LABS: Hematocrit 50.4 % (39.0-52.0); Hemoglobin 15.6 g/dL (13.0-18.0); Mean Corp Hgb Conc. 31.0 g/dL (33.0-37.0); Mean Corpuscular Volume 93.3 fL (80.0-94.0); Nucleated Red Blood Cells % 0 % (-); Platelet Count 166 10^3/uL (130-400); Red Cell Dist. Width 14.2 % (11.5-14.5)
[2025-04-18 03:44] LABS: Carbon Dioxide 39 mmol/L (22-30)
--- NOTE | 2025-04-18 07:07 | W.PN.INTV ---
Today's Communication / Plan
Recommendations
CTA negative, IV diuresis continued
SBT and extubation today, patient in agreement to use BIPAP
Will advance diet/PT-OT post extubation
Reviewed with family
Assessment
-
Patient is a 74-year-old male with previous history of hypertension, anxiety, former smoker with suspected COPD and CARLA (never formally diagnosed) presenting with shortness of breath, worsened with exertion. This has been progressively worsening
for the past few months. He had noted in the past 2 weeks that his legs were progressively swelling and weeping. Patient is noncompliant with outpatient follow-up and preventative care. He rarely sees providers as an outpatient. Per he may
have gained about 20 pounds in the last 6 months. He is morbidly obese. Chest x-ray demonstrating very profound low lung volumes. His initial ABG on arrival demonstrating pH 7.2, pCO2 111. Admitted to IMU for BiPAP. He refused overnight. The
patient became more progressively unresponsive throughout the night, rapid response called in IMU. He is now transferred to ICU for intubation.
Acute on chronic hypercarbic respiratory failure
Noncompliance with preventative care/CPAP
s/p intubation and mechanical ventilation
Suspect AECOPD
Suspect CHF exacerbation, unknown chronicity
LE edema
Conditions present SHAREPOINT ARCHITECT
Obstructive sleep apnea
Morbid (severe) obesity due to excess calories
Chronic obstructive pulmonary disease, no prior PFTs for review
Essential (primary) hypertension
Former smoker
BCC s/p excision 2022
Plan
Lethargic and minimally arousable, not responding to sternal rub--decision for intubation for hypercarbia
Psychiatric history noted above including anxiety/depression, panic attack not on home meds
Pain/sedation: fent PRN and gtt discontinued, weaning off for SAT
RASS goals: 0 to -1
Hemodynamically stable, not requiring pressors.
Cardiac history reviewed--HTN, suspect CHF
No prior ECHO for review--new study reviewed, enlarged RV/mild-mod PH, CTA obtained to r/o PE--negative
ProBNP >3000, agree with IV lasix
Monitor on telemetry
Intubated for acute on chronic CO2 retention, refused CPAP on admission
ABG 7.21/111/99/44.4--> 7.41/65/81/41.2/97%
Vent setting reviewed: AC 450/22/40/5+
Prior history of lung disease: suspect COPD and CARLA but has never seen OP Pulm
Supplemental O2 as indicated to maintain sats > 89%
CXR/CT reviewed indicating very low lung volumes
We had a serious discussion on BIPAP post extubation and compliance but patient was reluctant to answer/decide
Will need to FU discussion with family as his risk for re-intubation and tracheostomy is high
Patient now in agreement to use BIPAP, planning for SBT and extubation today
NPO, resume diet when able
Garland Maker recommendations
Aspiration precautions, HOB > 30 degrees
Speech therapy eval can be considered if at elevated risk
GI prophylaxis if indicated for mechanical ventilation >48 hours, prior history of GERD, stress ulcer formation in the critically ill
Creat at baseline, no history of renal disease
Void trials
Follow urine output, critical I/Os
Replete electrolytes as needed
No signs/symptoms suspicious for infectious etiology at this time
Observe off antibiotics for now
Follow fever trend, WBC count
CBC stable, no signs of bleeding or coagulopathy.
DVT prophylaxis as assessed based on risk, including mechanical SCDs
Can transfuse if indicated for Hb <7, plt < 10
INR WNL
No prior h/o diabetes or thyroid disease
Monitor accuchecks PRN/SS coverage if needed
Hyperglycemia noted, will check HbA1c
Diagnostic Data
Chest X-Ray: 04/16/25- Examination is limited by relatively large body habitus. Lungs appear hypoinflated but clear of consolidation.
US 04/16/25- No evidence of deep venous thrombosis bilaterally.
CT Scan:
Echo: 04/17/25- Normal left ventricular chamber size. Mild concentric left ventricular hypertrophy. Normal left ventricular systolic function. Left ventricular ejection fraction is 55-60% by visual assessment. Flattened septum in systole and
diastole consistent with RV pressure and volume overload. Enlarged right ventricular size. Estimated pulmonary artery pressure of 39 mmHg assuming a right atrial pressure of 8 mmHg. Pulmonic valve is grossly normal but poorly visualized. Normal
pericardium and pleura without evidence of effusion. No prior echocardiograms available for review
PFT's:
Reports and relevant images were personally reviewed.
Critical Care time 45 mins -- The patient is admitted for acute critical illness for the treatment of vital organ failure and/or prevention of further life-threatening conditions. Total care includes time spent in review of history, physical exam,
medications, hemodynamic/ventilator parameters, laboratory data, imaging and discussion with house staff, pharmacy, respiratory therapy, materials supervisor, and nursing. Additional time spent at intubation, transfer to ICU, discussion with family.
Subjective Dataa
Subjective Data
Date of Service:
Date of Service: April 18, 2025
Chief Complaint: Resident Program Specialist Follow Up
Subjective:
Remains intubated, no acute events ON
CTA negative
Objective Data
Data Reviewed
Vital Signs / I&O / Oxygen:
Vital Signs
Temp Pulse Resp BP Pulse Ox
98.6 F 53 22 131/61 91
04/18/25 06:55 04/18/25 06:00 04/18/25 06:00 04/18/25 06:00 04/18/25 05:00
Intake and Output
04/17/25 04/18/25 04/19/25
06:59 06:59 06:59
Intake Total 360 / 360
Output Total 2250 / 2250 2500 / 2500
Balance -1890 / -1890 -2500 / -2500
SaO2 [A/C] 92
SaO2 91
Nasal Cannula flow liters per 6
minute
Physical Exam
General: Comfortable and Other (NAD, obese)
HEENT: Normocephalic, Anicteric and Moist Mucous Membranes
Cardiovascular: S1-S2, Regular Rhythm and Peripheral Edema (BL, chronic venous stasis changes noted)
Respiratory: Clear, Non-Labored Respirations and ET Tube
GI: Soft, Non Distended and Non Tender
Neurology: Awake, Alert, Oriented and Other (answering, nodding, writing)
Skin: Warm and Dry
Labs/Micro/Reports
Lab Data
04/18/25 03:05
04/18/25 03:05
Laboratory Results
04/17/25 04/17/25 04/17/25
07:45 08:38 09:21
PT 14.4
INR 1.07
APTT 21.2 L
pH 7.21 L 7.41
pCO2 111 H* 65 H
pO2 99 81 L
HCO3 44.4 H* 41.2 H*
O2 Delivery Level %oxygen/room air 60%
--- NOTE | 2025-04-18 07:45 | PTCARENOTE ---
Received pt intubated, with bilateral soft wrist restraints intact. He easily awakened with RN entering the room. Mouthing words and using hand gestures to communicate. He was also to write questions regarding the plan of care. I spent quite some
time informing him that it is a combination of medicines, diet, exercise, daily weight, limiting his salt intake, and utilizing Bipap mask for naps and HS for best outcomes and 'management' of CHF. Reiterated that it is not just one thing or
intervention to manage CHF, that it is a combination. He nodded his head in understanding. He was also informed that wearing the Bipap for naps and at bedtime was not negotiable, he MUST utilize it for the prevention of Co2 buildup in his blood that
makes him sleepy and not wake up. He nodded his head in understanding. Supportive care given. Left AC# 20g and left hand #22g protective catheters bloth flushed and patent. Good peripheral pulses, +2 L/E edema with redness noted. Compression therapy
maintained. #88ETT secured 24 cm left lip. Tolerating AC 22/450/.65/+5. Breath sounds anteriorly CTA, posteriorly tubular on the left midway up. Dim in both bases. Moderate white oral secretions. ETT secretion white to calvo small amounts. He has a
good cough. Morbidly obese. NPO. No enteral tube in place for meds ordered via tube. #25 short condom catheter inlace. Voiding dark yellow urine. He was instructed that he was being given his Lasix, the diuretic and it will make him void. He is
aware he has a condom catheter on. Safe environment maintained. Will continue to monitor.
[2025-04-18] MEDS: LOW STRENGTH ASPIRIN TUBE (07:56)
[2025-04-18] MEDS: LASIX 80 MG IV ×2 (07:56→16:17)
[2025-04-18] MEDS: MIRALAX TUBE (07:56)
--- NOTE | 2025-04-18 10:26 | PTCARENOTE ---
His and sister are at the bedside and were made aware fo the plan of care to extubate depending on his ABG. They verbalized their understanding. Supportive care provided.
--- NOTE | 2025-04-18 10:34 | PTCARENOTE ---
Repositioned. Was able to comfortably lay him flat to boost up in the bed.
[2025-04-18 10:39] LABS: B.E. 20.1 mmol/L; O2 Saturation % 98.4 % (94-98); PCO2 53 mmHg (35-48); PO2 86 mmHg (83-108)
[2025-04-18 10:40] LABS: HCO3 46.4 mmol/L (21-28)
--- NOTE | 2025-04-18 11:04 | W.PN.CARDCBS ---
Today's Communication / Plan
-
Continue IV Lasix
Aspirin/statin when oral access is available
Hold beta-buzz and monitor on telemetry
Impression / Plan
-
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 Kim in 2022
Assessment:
Presentation with SOB
Acute hypoxic respiratory failure requiring urgent intubation 04/17/25
Acute CHF, preserved ejection fraction
Suspected COPD exacerbation
Elevated troponin
Hyperkalemia
NSVT
HTN
anxiety/claustrophobia
obesity
Cardiac murmur
ECHO 04/17/25: NL LVEF 55-60%, flattened intraventricular septum, dilated RV, PASP 39mmHg
Plan:
- Developed acute respiratory failure requiring intubation and remains critically ill in the intensive care unit. ABG suggestive of hypercapnic respiratory failure. Likely multifactorial in part due to heart failure with preserved ejection fraction
as well as COPD and CARLA.
- Continue IV Lasix in an attempt to optimize his respiratory status
- Good UOP response to IV Lasix this far, would continue 80 IV twice daily
- Follow daily weight, Cr and electrolytes which are stable
- Trop peaked at 0.5 and now down trending
- No acute ST abnormalities by EKG
- Suspect this represents nonischemic myocardial injury troponin elevation in the setting of acute heart failure
- Medically manage for now with aspirin and statin when oral access is available
- Would defer ischemic evaluation at this time, can can be readdressed as an outpatient pending his clinical course
- Brief NSVT was noted on telemetry this admission. Sinus rhythm overnight.
- Replete K/mg
- Keep on telemetry
- Okay to hold off on Lopressor for now and monitor as this could worsen his COPD
- d/w nursing
CC: 33 minutes
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
Subjective
Date of Service: April 18, 2025
No acute overnight events. Patient remains intubated in the medical ICU. He is able to open eyes, track and follow commands this a.m.
Objective
Labs:
04/18/25 03:05
04/18/25 03:05
Labs
Hgb 15.6 g/dL (13.0-18.0) 04/18/25 03:05
Hct 50.4 % (39.0-52.0) 04/18/25 03:05
Plt Count 166 10^3/uL (130-400) 04/18/25 03:05
PT 14.4 Sec (11.4-14.6) 04/17/25 08:38
INR 1.07 04/17/25 08:38
APTT 21.2 Sec (23.4-35.0) L 04/17/25 08:38
Sodium 138 mmol/L (135-145) 04/18/25 03:05
Potassium 3.9 mmol/L (3.5-5.1) 04/18/25 03:05
BUN 36 mg/dl (9-20) H 04/18/25 03:05
Creatinine 1.0 mg/dL (0.7-1.3) 04/18/25 03:05
Glucose 130 mg/dl (70-99) H 04/18/25 03:05
Troponins
04/16/25 04/16/25 04/17/25
13:52 21:23 04:30
Troponin I 0.296 H* 0.537 H* D 0.420 H*
04/17/25 04/17/25
14:34 18:30
Troponin I 0.364 H* Cancelled
Vital Signs and I&O:
Vital Signs
Temp Pulse Resp BP Pulse Ox
98.6 F 66 30 131/75 90
04/18/25 06:55 04/18/25 11:00 04/18/25 11:00 04/18/25 10:01 04/18/25 11:03
Vital Signs
Temp Pulse Resp BP Pulse Ox
98.6 F 66 30 131/75 90
04/18/25 06:55 04/18/25 11:00 04/18/25 11:00 04/18/25 10:01 04/18/25 11:03
Intake & Output
04/16/25 04/17/25 04/18/25 04/19/25
06:59 06:59 06:59 06:59
Intake Total 360 / 360
Output Total 2250 / 2250 2500 / 2500 2425 / 2425
Balance -1890 / -1890 -2500 / -2500 -2425 / -2425
Physical Exam
Physical Exam
Gen: NAD
HEENT: NC/AT, sclera anicteric
Neck: No JVD
CV: RRR, NL s1/s2
Lungs: Mechanically ventilated
Abd: S/ND
: Mcclendon with clara urine.
Ext: 1+ LE edema b/l
Skin: Warm, dry.
Neuro: Sedated
[2025-04-18 12:17] LABS: Glucose - Point of Care 96 mg/dl (70-99)
--- NOTE | 2025-04-18 14:22 | PTCARENOTE ---
2 assist OOB to the chair w/rolling walker. Tolerated it well. Reinforced CHF instructions regarding daily weight & food selections. was also present for instructions.
--- NOTE | 2025-04-18 14:53 | W.PN.HOSP.TC ---
Addendum entered and electronically signed by Marva Dunlap MD 04/18/25 16:35:
I saw and evaluated the patient independently. I reviewed the resident�s note and agree with findings and plan as documented by Dr. Neil.
GENERAL: well developed, well nourished, male, intubated and awake
HEENT: NC/AT--intubated
HEART: regular rate and rhythm, +S1, +S2
LUNGS : better air movement bilaterally
ABDOM: soft, nontender, nondistended, + bowel sounds
EXT: no cyanosis, clubbing, or edema
NEUROLOGIC: grossly intact
Acute hypercapnic/hypoxemic respiratory failure--pt CO2 retainer chronically with elevated bicarb of >35 --noncompliant with meds, CARLA eval, etc--pt obtunded 04/17/25 requiring intubation---ABG pH 7.21, PCO2 111, PO299, HCO3 44--CXR limited--apprec
repairing calibrator--now extubated, passed speech eval--- CT neg for PE--more likely CHF from untreated CARLA with obesity/hypoventilation syndrome--apprec cards--cont aggressive diuresis (lasix 80 mg IV BID)--daily weights, I/Os--pt now agreeable to follow
up and wear BiPAP
Troponin elevation--likely due to nonischemic myocardial troponin elevation from hypoxia/hypercapnia--apprec cards--ECHO with preserved EF but volume overload--EKG showed normal sinus rhythm with first-degree AV block, incomplete RBBB--apprec cards
COPD with likely chronic CO2 retention--no PFTs--will need Outpt pulm follow up
Essential hypertension with hypertensive urgency--elevated BPS--improved post intubation--when able cont losartan
Claustrophobia/panic disorder-- Advised patient to follow with psychiatry outpatient
Morbid obesity- Affects all aspects of care
Noncompliance to medications--Affects all aspects of care--Alarm Mechanism Adjuster discussed high risk for respiratory distress and reintubation. He does not want to pursue tracheostomy but apparently will now be compliant with BiPAP
DVT proph-- Lovenox
CODE STATUS-- full code--if pt remains noncompliant with treatment for BP, CARLA, COPD, CHF etc..then likely should be DNR/DNI with hospice as goal of treatment--as this is likely to happen again without serious lifestyle changes and medication
compliance
can downgrade to IMU
Original Note:
Today's Communication/Plan
-
Regular solid and thin liquid diet as per speech eval.
Restarted losartan 25 Mg p.o. after extubation.
Continue diuretics.
Cardiology following
Recommending outpatient follow-up with PCP and to obtain sleep study when planning discharge.
Assessment / Plan
Assessment / Plan
74-year-old male with a past medical history of hypertension, anxiety, claustrophobia, panic disorder presented to the ED with shortness of breath with exertion that has progressively gotten worse over the past few months. For the last 2 weeks he
has had increased leg swelling and they are now weeping. His abdomen and thigh are also swollen. Patient has gained 20 pounds last 6 months per . He denies syncope, dizziness, headache, fever, congestion, cough, chest pain, abdominal pain,
nausea, vomiting, diarrhea, dysuria or hematuria. Patient has not been compliant to prescription medications. He received a dose of dexamethasone, Lasix, nebs and labetalol in the ER and was admitted for acute hypoxic respiratory failure. Day 3 of
admission. Patient was intubated after being diagnosed with acute hypercapnic respiratory failure with elevated blood pressure yesterday around 8 AM. His blood pressure decreased after being intubated. He became alert 1 hour after intubation was
performed and was answering questions appropriately by writing. Night was uneventful. He was extubated today and evaluated by speech therapy, and progressed to regular solids and thin liquids.
Assessment and plan:
# COPD with acute hypercapnic respiratory failure
# CHF with preserved ejection fraction
-Echo showed LVEF 55 to 60%
- Chest CT was negative for pulmonary embolism.
- Extubated today
- REGISTRAR MUSEUM suggests diet progression to regular solids and thin liquids
- Continue diuretics
- Recommend outpatient pulmonary follow-up.
# Elevated troponin�likely due to nonischemic myocardial injury
- Troponin peaked at 0.5. Repeat at 3 PM yesterday was 0.364.
- Cardiology following
# Obstructive sleep apnea
- Patient has refused sleep study, and remains noncompliant to medications.
- Recommend outpatient follow-up with PCP and to obtain a sleep study.
# Hypertension
- Losartan was held because patient was intubated. Will resume losartan 25 mg PO.
- Continue Lasix 80 Mg IV twice daily
# Morbid obesity
# non compliance to medications
- affects all aspect of care
DVT Lovenox.
Full code
Anticipated Discharge: 24 - 48 hours
Subjective/Interval History
-
Date of Service: April 18, 2025
74-year-old male with a past medical history of hypertension, CARLA, claustrophobia, panic disorder presented to the ED with progressive shortness of breath over months, leg swelling with weeping and weight gain. The patient had acute hypercapnic
respiratory failure with CO2 retention with elevated blood pressure after which he was intubated. BP improved after he was intubated. He has been non compliant to medications and refused sleep study despite excessive daytime sleepiness. He stated
he felt better and has no new complaints when evaluated at 9 AM this morning. Patient was extubated today. BP 131/69, AR 50, RR 22, afebrile, 93% on ventilator.
Objective Data
-
Labs:
Laboratory Results
04/18/25 04/18/25
03:05 10:18
WBC 10.3
Hgb 15.6
Hct 50.4
Plt Count 166
HCO3 46.4 H*
Sodium 138
Potassium 3.9
Chloride 92 L
Carbon Dioxide 39 H
BUN 36 H
Creatinine 1.0
Glucose 130 H
Calcium 8.1 L
Total Bilirubin 2.2 H D
AST 34
ALT 21
Alkaline Phosphatase 51
Vital Signs:
Vital Signs
Temp Pulse Resp BP Pulse Ox
98.6 F 73 26 134/73 94
04/18/25 06:55 04/18/25 14:00 04/18/25 14:00 04/18/25 14:00 04/18/25 14:00
I&O
04/17/25 04/18/25 04/19/25
06:59 06:59 06:59
Intake Total 360 / 360
Output Total 2250 / 2250 2500 / 2500 3250 / 3250
Balance -1890 / -1890 -2500 / -2500 -3250 / -3250
Review of Systems
-
History Source: Patient
All other systems: Reviewed and negative
Constitutional: Reports Weight Gain
EENT: Reports No Symptoms Reported
Respiratory: Reports Trouble Breathing
Cardiac: Reports No Symptoms
Abdomen/GI: Reports No Symptoms
Breast: Reports No Symptoms
Genitourinary: Reports No Symptoms
Musculoskeletal: Reports No Symptoms
Skin: Reports No Symptoms
Neuro: Reports No Symptoms
Endocrine: Reports No Symptoms
Hematologic / Lymphatic: Reports No Symptoms
Allergy / Immunology: Reports No Symptoms
Physical Exam
-
General: No Apparent Distress, Comfortable and Morbidly Obese
HEENT: Normocephalic, Atraumatic, Moist Mucous Membranes and Nose Appears Normal
Respiratory: Clear to Auscultation
Cardiac: Regular Rhythm and S1/S2
Breast: Deferred by me
GI: Soft, Nontender, Nondistended and Normal Bowel Sounds
Rectal: Deferred by Provider
Genito-urinary: No Costovertebral Tender
Musculoskeletal: No Clubbing, No Cyanosis, Edema, Right Lower Extrem and Edema, Left Lower Extrem
Skin: Other (Lower extremity wrapped due to weeping)
Neuro: AO x 3
Hematologic / Lymphatic: No Lymphadenopathy
Psych: Calm
Data Reviewed
-
CT Scan: Report Reviewed by me and Discussed with Physician
Medical Tests (Nuc Med, Echo etc): Report Reviewed by me and Discussed with Physician
Labs: Labs Reviewed by me and Discussed with Physician
Old Records: Reviewed
--- NOTE | 2025-04-18 15:04 | PTOTSP ---
Speech Therapy Evaluation
Pt seen for bedside swallow evaluation with present. Pt s/p extubation and with NPO order. Pt managed PO trials of regular and thins via straw (sequential and single sips) with what appeared to be adequate mastication, good oral clearance, and
coordinated swallow. Pt denied globus sensation and/or pain while swallowing. Intermittent throat clearing during PO trials, however, vocal quality remained clear. Pt at high risk of aspiration given history of abnormal chest x-ray, history of acute
hypoxic respiratory failure, COPD.
Recommendations:
1. Initiate Regular Diet and Thin liquids
2. Meds as tolerated
3. Standard aspiration precautions
4. ST to follow to monitor diet tolerance
--- NOTE | 2025-04-18 15:17 | CM ---
Patient seen at bedside with patient and sister also present with physicians in ICU. Patient was intubated at the time of the visit but has since been extubated and placed on a diet per chart review/physicians. CM will continue to follow for
discharge planning needs.
Plan; pending medical treatment plan; PT/OT assessment as appropriate.
[2025-04-18] MEDS: COLACE LIQUID 100 MG PO (16:24)
[2025-04-18] MEDS: LIPITOR 40 MG PO (17:05)
[2025-04-18] MEDS: LOVENOX 40 MG SC (17:05)
--- NOTE | 2025-04-18 17:14 | PTCARENOTE ---
Pt verbalized 'I can't believe I was this stupid and did this to myself'. Supportive care provided and reassured him again that this can be managed with him doing his part by following his prescribed diet and fluid restriction, and weighing himself
every day.
[2025-04-18 18:25] LABS: Glucose - Point of Care 110 mg/dl (70-99)
[2025-04-18 21:17] LABS: Glucose - Point of Care 111 mg/dl (70-99)
--- NOTE | 2025-04-18 21:30 | PTCARENOTE ---
Pt received at 19:00, at bedside. AOx3, pleasant and cooperative. Received on 4L NC, titrated down to 2L. Pulse ox 93-96%. Breath sounds diminshed t/o. SR w/ 1st degree AVB and prolonged QT. Palpable pulses. Abdomen rounded, non tender, +bowel
sounds. Condom cath in place, yellow urine.
--- NOTE | 2025-04-18 22:37 | PTCARENOTE ---
Pt falling asleep and desatting to 86%. RT placed pt on bipap. Within 5 minutes, pt rang wanting to take the bipap off stating 'i never went to sleep this early a day in my life' at 2230. Discussed with patient that if he is awake he can be off of
the bipap with the plan to be 12 midnight, per his request. However it was agreed that if he is to fall asleep again, I will give him the melatonin and he will go on the mask prior to midnight.
[2025-04-19] VITALS (16 sets, daily range): BP systolic 111–151; BP diastolic 68–86; PULSE 2–78; O2SAT 94–95; BMI 46.3
[2025-04-19] MEDS: MELATONIN 10 MG PO (00:04)
--- NOTE | 2025-04-19 02:11 | PTCARENOTE ---
Pt frequently requesting bipap settings/mask be adjusted. Settings remain as ordered, mask adjusted as needed. Pt states he cannot sleep with mask on. x1 order obtained for ativan, pt refused stating 'I asked you to help me, but not like that. I
already took something to sleep, I don't want no more drugs or this mask.' Explained to pt that this will help him sleep while on the mask and that it will then allow the mask to work. Reinforced the importance of keeping the mask on. RN left the
room as pt declined assistance or medication at this time. Pt remains on bipap currently.
[2025-04-19 06:36] LABS: Blood Urea Nitrogen 42 mg/dl (9-20); Calcium 7.9 mg/dl (8.4-10.2); Chloride 90 mmol/L (98-107); Estimated Creatinine Clearance 79 ml/min; Glucose 110 mg/dl (70-99); Potassium 3.8 mmol/L (3.5-5.1); Sodium 138 mmol/L (135-145); eGFR > 60.00
[2025-04-19 06:40] LABS: Carbon Dioxide 44 mmol/L (22-30)
[2025-04-19 06:56] LABS: Hematocrit 51.3 % (39.0-52.0); Hemoglobin 15.6 g/dL (13.0-18.0); Mean Corp Hgb Conc. 30.4 g/dL (33.0-37.0); Mean Corpuscular Volume 94.8 fL (80.0-94.0); Nucleated Red Blood Cells % 0 % (-); Platelet Count 175 10^3/uL (130-400); Red Cell Dist. Width 14.4 % (11.5-14.5)
--- NOTE | 2025-04-19 07:07 | W.PN.PUL3 ---
Today's Communication / Plan
-
Doing well post extubation, continue BIPAP nightly and PRN
CM consult for home set up, will need OP FU--can leave info in chart
IV diuresis ongoing
PT/OT, speech follow up
OOB today
Transfer to tele
Assessment
-
Patient is a 74-year-old male with previous history of hypertension, anxiety, former smoker with suspected COPD and CARLA (never formally diagnosed) presenting with shortness of breath, worsened with exertion. This has been progressively worsening
for the past few months. He had noted in the past 2 weeks that his legs were progressively swelling and weeping. Patient is noncompliant with outpatient follow-up and preventative care. He rarely sees providers as an outpatient. Per he may
have gained about 20 pounds in the last 6 months. He is morbidly obese. Chest x-ray demonstrating very profound low lung volumes. His initial ABG on arrival demonstrating pH 7.2, pCO2 111. Admitted to IMU for BiPAP. He refused overnight. The
patient became more progressively unresponsive throughout the night, rapid response called in IMU. He is now transferred to ICU for intubation.
Acute on chronic hypercarbic respiratory failure
Noncompliance with preventative care/CPAP
s/p intubation and mechanical ventilation, extubated 04/18
Suspect AECOPD
Suspect CHF exacerbation, unknown chronicity
LE edema
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
Obstructive sleep apnea
Morbid (severe) obesity due to excess calories
Chronic obstructive pulmonary disease, no prior PFTs for review
Essential (primary) hypertension
Former smoker
BCC s/p excision 2022
Plan
MS stable today, off sedation
Psychiatric history noted above including anxiety/depression, panic attack not on home meds
Pain/sedation: tylenol PRN
RASS goals: 0
Hemodynamically stable, not requiring pressors.
Cardiac history reviewed--HTN, suspect CHF
No prior ECHO for review--new study reviewed, enlarged RV/mild-mod PH, CTA obtained to r/o PE--negative
ProBNP >3000, agree with IV lasix --continue, transition to PO course
Monitor on telemetry
Cards following
Intubated for acute on chronic CO2 retention, extubated and tolerating BIPAP nightly 04/18
Prior history of lung disease: suspect COPD and CARLA but has never seen OP Pulm
Supplemental O2 as indicated to maintain sats > 89%
CXR/CT reviewed indicating very low lung volumes
Continue PAP nightly, CM consult for home set up
Diet advacement
Aspiration precautions, HOB > 30 degrees
Speech therapy eval can be considered if at elevated risk
GI prophylaxis if indicated
Creat at baseline, no history of renal disease
Void trials
Follow urine output, critical I/Os
Replete electrolytes as needed
No signs/symptoms suspicious for infectious etiology at this time
Observe off antibiotics for now
Follow fever trend, WBC count
CBC stable, no signs of bleeding or coagulopathy.
DVT prophylaxis as assessed based on risk, including mechanical SCDs
Can transfuse if indicated for Hb <7, plt < 10
INR WNL
No prior h/o diabetes or thyroid disease
Monitor accuchecks PRN/SS coverage if needed
Hyperglycemia noted, HbA1c 6.5--OP FU
Diagnostic Data
Chest X-Ray: 04/16/25- Examination is limited by relatively large body habitus. Lungs appear hypoinflated but clear of consolidation.
US 04/16/25- No evidence of deep venous thrombosis bilaterally.
CT Scan:
Echo: 04/17/25- Normal left ventricular chamber size. Mild concentric left ventricular hypertrophy. Normal left ventricular systolic function. Left ventricular ejection fraction is 55-60% by visual assessment. Flattened septum in systole and
diastole consistent with RV pressure and volume overload. Enlarged right ventricular size. Estimated pulmonary artery pressure of 39 mmHg assuming a right atrial pressure of 8 mmHg. Pulmonic valve is grossly normal but poorly visualized. Normal
pericardium and pleura without evidence of effusion. No prior echocardiograms available for review
PFT's:
Reports and relevant images were personally reviewed.
Total time spent on this consultation/encounter __51__ minutes which includes review of history, physical exam, medications, laboratory data, personal review of imaging, extensive review of outpatient records, discussion with care team and
respiratory therapy.
Subjective Data
-
Date of Service:
Date of Service: April 19, 2025
Chief Complaint: Pulmonary Follow Up
Subjective:
Transferred overnight to U
Doing well today, wore BIPAP for 6 hours
No new complaints
Objective Data
Data Reviewed
Vital Signs / I&O / Oxygen:
Vital Signs
Temp Pulse Resp BP Pulse Ox
97.8 F 56 17 151/86 92
04/19/25 03:09 04/19/25 06:00 04/19/25 06:00 04/19/25 05:00 04/19/25 06:00
Intake and Output
04/18/25 04/19/25 04/20/25
06:59 06:59 06:59
Intake Total 660 / 660
Output Total 2500 / 2500 4750 / 4750
Balance -2500 / -2500 -4090 / -4090
SaO2 [CPAP/PSV] 95
SaO2 [A/C] 93
SaO2 92
Nasal Cannula flow liters per 2
minute
Physical Exam
General: Comfortable and Other (NAD, morbidly obese)
HEENT: Normocephalic and Anicteric
Cardiovascular: S1-S2, Regular Rhythm and Peripheral Edema
Respiratory: Clear and Non-Labored Respirations
GI: Soft, Non Distended and Non Tender
Neurology: Awake, Alert, Oriented and No Motor Deficits
Skin: Warm and Dry
Labs/Micro/Reports
Lab Data
04/19/25 06:26
07/31/25 05:41
Laboratory Results
04/18/25
10:18
pH 7.55 H
pCO2 53 H
pO2 86
HCO3 46.4 H*
O2 Delivery Level Not Reportable
Microbiology
04/16/25 21:23 Nose MRSA Screen - Final
No Methicillin Resistant Staphylococcus aureus isolated.
[2025-04-19] MEDS: NOVOLOG FLEXPEN-MODERATE RESISTANCE SC ×3 (07:48→16:53)
[2025-04-19 07:58] LABS: Glucose - Point of Care 91 mg/dl (70-99)
--- NOTE | 2025-04-19 08:00 | PTCARENOTE ---
Pt rec'd from night RN in report at 07:15, tolerated bipap for approx 6 hours. Orders reviewed, plan of care discussed with MDs and patient, at bedside. Pt is agreeable to plan and verbalized gratitude for his care. Pt is AOx3, cooperative. Ate
100% of breakfast. Capnography ordered and applied, VBG drawn and sent, result communicated to Dr. Mayorga. Pt assisted oob with PT and seated up in chair, condom cath fell off and patient requested urinal instead. Wound care performed to bilat
legs. Pt downgraded to tele per Dr. Dunlap, pt updated. Brother now arrived to visit. Care ongoing.
[2025-04-19 08:13] LABS: Venous Blood Gas B.E. 17.6 mmol/L (-4 to +4); Venous Blood Gas O2 Sat % 96.8 %
--- NOTE | 2025-04-19 09:15 | W.PN.HOSP.TC ---
Addendum entered and electronically signed by Marva Dunlap MD 04/19/25 13:38:
I saw and evaluated the patient independently. I reviewed the resident�s note and agree with findings and plan as documented by Dr. Neil.
GENERAL: well developed, well nourished, male awake and in no apparent distress
HEENT: NC/AT
HEART: regular rate and rhythm, +S1, +S2
LUNGS : better air movement bilaterally
ABDOM: soft, nontender, nondistended, + bowel sounds
EXT: no cyanosis, clubbing--still with edema--legs wrapped
NEUROLOGIC: grossly intact
Acute hypercapnic/hypoxemic respiratory failure--pt CO2 retainer chronically with elevated bicarb of >35 --noncompliant with meds, CARLA eval, etc--pt obtunded 04/17/25 requiring intubation (ABG pH 7.21, PCO2 111, PO299, HCO3 44)--CXR limited--apprec
co chairman--now extubated, passed speech eval--- CT neg for PE--more likely CHF from untreated CARLA with obesity/hypoventilation syndrome--apprec cards--cont diuresis (lasix 80 mg IV BID)--adding spironolactone and hopefully Farxiga--daily weights,
I/Os--pt now agreeable to follow up and wear BiPAP
Troponin elevation--likely due to nonischemic myocardial troponin elevation from hypoxia/hypercapnia--apprec cards--ECHO with preserved EF but volume overload--EKG showed normal sinus rhythm with first-degree AV block, incomplete RBBB--cont diuresis
with lasix, aldactone--CM to robbins Farxiga
COPD with likely chronic CO2 retention--no PFTs--will need Outpt pulm follow up
Essential hypertension with hypertensive urgency--elevated BPS--improved post intubation--when able cont losartan
Claustrophobia/panic disorder-- Advised patient to follow with psychiatry outpatient--PRN HS ativan for tolerating BiPAP--try dropping setting to 08/27
Morbid obesity- Affects all aspects of care
Noncompliance to medications--Affects all aspects of care--Fuel Assembler discussed high risk for respiratory distress and reintubation. He does not want to pursue tracheostomy but apparently will now be compliant with BiPAP
DVT proph-- Lovenox
CODE STATUS-- full code--if pt remains noncompliant with treatment for BP, CARLA, COPD, CHF etc..then likely should be DNR/DNI with hospice as goal of treatment--as this is likely to happen again without serious lifestyle changes and medication
compliance
can downgrade to tele
Original Note:
Today's Communication/Plan
-
Continue Lasix 80 Mg IV twice daily
Will monitor patient. Downgrade from IMU to telemetry
Assessment / Plan
Assessment / Plan
74-year-old male with a past medical history of hypertension, CARLA, claustrophobia, panic disorder presented to the ED with progressive dyspnea, leg swelling with weeping and weight gain.�
Patient has not been compliant to prescription medications/ outpatient follow up in the past. He was diagnosed with acute hypercapnic/hypoxic respiratory failure with elevated blood pressure. Patient intubated on 04/17/25, and extubated on
04/18/2025. Progressed to regular solid and thin liquid diet.
Assessment and plan:
# COPD with acute hypoxic/hypercapnic respiratory failure
# CHF with preserved ejection fraction
- Echo showed LVEF 55 to 60%
- Chest CT was negative for pulmonary embolism.
- Tolerated BiPAP for 6 hours yesterday
- Continue Lasix 80 Mg IV twice daily.
- Recommend outpatient pulmonary follow-up
# Elevated troponin�likely due to nonischemic myocardial injury
- Troponin peaked at 0.5, down trended thereafter
- Cardiology following
# Obstructive sleep apnea
- Recommend outpatient follow-up with PCP and to obtain a sleep study. Patient agreeable to this plan as of today.
# Hypertension
- Continue losartan 25 mg PO.
- Continue Lasix 80 Mg IV twice daily
# Morbid obesity
# non compliance to medications
- affects all aspect of care
DVT Lovenox.
Full code
PCP: Dr. Victoriano Phillips
Anticipated Discharge: Within 24 hours
Subjective/Interval History
-
Date of Service: April 19, 2025
74-year-old male with a past medical history of hypertension, CARLA, claustrophobia, panic disorder presented to the ED with progressive dyspnea, leg swelling and weight gain.�
Intubated yesterday The patient had acute hypercapnic respiratory failure with CO2 retention with elevated blood pressure after which he was intubated. ABG pH 7.21, PCO2 111, PO299, HCO3 44-BP improved after he was intubated on 04/17/25. He has been
non-compliant to medications and refused sleep study despite excessive daytime sleepiness. Patient was extubated yesterday 04/18. Passed speech evaluation and progressed to regular solids and thin liquids. Patient was able to get out of bed into his
chair yesterday. He tolerated BiPAP for 6 hours yesterday. Patient refused Ativan prior to BiPAP and claims he did not know what it was for. Patient would like Ativan before BiPAP today. Patient expresses that he is agreeable to being compliant
with outpatient follow-up given his severity of symptoms. He states 'I do not want to feel like this ever again.'
Objective Data
-
Labs:
Laboratory Results
04/19/25 04/19/25 04/19/25
04:10 05:41 06:26
WBC 8.1
Hgb 15.6
Hct 51.3
Plt Count 175
Sodium Cancelled 138
Potassium Cancelled 3.8
Chloride Cancelled 90 L
Carbon Dioxide Cancelled 44 H
BUN Cancelled 42 H
Creatinine Cancelled 1.2
Glucose Cancelled 110 H
Calcium Cancelled 7.9 L
Vital Signs:
Vital Signs
Temp Pulse Resp BP Pulse Ox
98.2 F 71 20 141/79 93
07/31/25 07:49 04/19/25 07:47 04/19/25 07:47 04/19/25 07:47 04/19/25 07:48
I&O
04/18/25 04/19/25 04/20/25
06:59 06:59 06:59
Intake Total 660 / 660 118 / 118
Output Total 2500 / 2500 4750 / 4750
Balance -2500 / -2500 -4090 / -4090 118 / 118
Review of Systems
-
History Source: Patient
All other systems: Reviewed and negative
Constitutional: Reports Weight Gain
EENT: Reports No Symptoms Reported
Respiratory: Reports Trouble Breathing
Cardiac: Reports No Symptoms
Abdomen/GI: Reports No Symptoms
Breast: Reports No Symptoms
Genitourinary: Reports No Symptoms
Musculoskeletal: Reports No Symptoms
Skin: Reports Other (Lower extremity weeping)
Neuro: Reports No Symptoms
Endocrine: Reports No Symptoms
Hematologic / Lymphatic: Reports No Symptoms
Allergy / Immunology: Reports No Symptoms
Physical Exam
-
General: Morbidly Obese
HEENT: Normocephalic, Atraumatic and Moist Mucous Membranes
Respiratory: Clear to Auscultation
Cardiac: S1/S2
Breast: Deferred by me
GI: Soft, Nontender, Nondistended and Normal Bowel Sounds
Rectal: Deferred by Provider
Genito-urinary: No Costovertebral Tender
Musculoskeletal: No Clubbing, No Cyanosis and No Edema
Neuro: AO x 3
Hematologic / Lymphatic: No Lymphadenopathy
Psych: Calm
Data Reviewed
-
Labs: Labs Reviewed by me and Discussed with Physician
Old Records: Reviewed
[2025-04-19] MEDS: LASIX 80 MG IV ×2 (09:21→16:01)
[2025-04-19] MEDS: MIRALAX 17 GRAMS TUBE (09:22)
[2025-04-19] MEDS: LOW STRENGTH ASPIRIN 81 MG TUBE (09:23)
[2025-04-19] MEDS: COZAAR 25 MG PO (09:23)
--- NOTE | 2025-04-19 11:21 | W.PN.CARDCBS ---
Today's Communication / Plan
-
Add spironolactone
Case management to robbins SGLT2 antagonist, and if possible
Continue IV Lasix
From my standpoint, could leave ICU
Impression / Plan
-
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 Kim in 2022
Assessment:
Acute hypoxic respiratory failure requiring urgent intubation 04/17/25
Acute CHF, preserved ejection fraction
Suspected COPD exacerbation
Elevated troponin
Hyperkalemia
NSVT
HTN
anxiety/claustrophobia
obesity
Cardiac murmur
ECHO 04/17/25: NL LVEF 55-60%, flattened intraventricular septum, dilated RV, PASP 39mmHg
Plan:
He is considerably improved, now extubated and comfortable.
However, still significantly volume overloaded.
Defer management of acid-base issues to pulmonary.
Continue IV furosemide.
Will add spironolactone 25 mg daily.
Add Farxiga 10 mg daily if not cost prohibitive.
No additional nonsustained VT.
Troponin is modestly elevated, likely non-PR myocardial injury. We can consider an outpatient myocardial perfusion PET/CT
From my standpoint, could leave intensive care unit.
CC: 35 minutes
Progress Note - Local Sales Manager
Subjective
Date of Service: April 19, 2025:
74-year-old man admitted 04/16 with multifactorial dyspnea on exertion subsequently progressing to vent dependent respiratory failure, refusing BiPAP.
PMH: Hypertension, COPD, anxiety, claustrophobia, morbid obesity
PSH/SH/FH/allergies/meds/ROS: As below per Rosa Fernando, reviewed in detail and agree
Outpatient meds: Losartan
Medications: Lovenox, MiraLAX, furosemide 80 mg IV twice daily, aspirin 81 mg daily, atorvastatin 40 mg daily, losartan 25 mg a day
141/79, pulse 71, respiratory 20, afebrile, intake and output -3.2 L, weight is 146.5 kg was 161.5 kg at admission and 150.8 kg, extubated, no complaints, morbidly obese, lungs are diminished but relatively clear, regular rate and rhythm, no obvious
murmurs JVD hard to assess 2+ edema
Echo 04/17/2025: EF 55-60%, mild LVH, flattened septum, dilated RV, pulmonary artery systolic pressure 39 mmHg, no significant valvular disease
Hemoglobin 15.6, white count 8.1, platelets 175, ABG 7.55 pCO2 53, PO286, bicarb 46, BUN/creatinine 42 and 1.2, potassium 3.8
CT scan of chest - NAD
ECG sinus rhythm, first-degree AV block, poor R wave progression
Objective
Labs:
04/19/25 06:26
04/19/25 05:41
Labs
Hgb 15.6 g/dL (13.0-18.0) 04/19/25 06:26
Hct 51.3 % (39.0-52.0) 04/19/25 06:26
Plt Count 175 10^3/uL (130-400) 04/19/25 06:26
PT 14.4 Sec (11.4-14.6) 04/17/25 08:38
INR 1.07 04/17/25 08:38
APTT 21.2 Sec (23.4-35.0) L 04/17/25 08:38
Sodium 138 mmol/L (135-145) 04/19/25 05:41
Potassium 3.8 mmol/L (3.5-5.1) 04/19/25 05:41
BUN 42 mg/dl (9-20) H 04/19/25 05:41
Creatinine 1.2 mg/dL (0.7-1.3) 04/19/25 05:41
Glucose 110 mg/dl (70-99) H 04/19/25 05:41
Troponins
04/16/25 04/16/25 04/17/25
13:52 21:23 04:30
Troponin I 0.296 H* 0.537 H* D 0.420 H*
04/17/25 04/17/25
14:34 18:30
Troponin I 0.364 H* Cancelled
Vital Signs and I&O:
Vital Signs
Temp Pulse Resp BP Pulse Ox
36.8 C 73 22 125/68 93
04/19/25 07:49 04/19/25 10:00 04/19/25 10:00 04/19/25 09:21 04/19/25 10:00
Vital Signs
Temp Pulse Resp BP Pulse Ox
36.8 C 73 22 125/68 93
04/19/25 07:49 04/19/25 10:00 04/19/25 10:00 04/19/25 09:21 04/19/25 10:00
Intake & Output
04/17/25 04/18/25 04/19/25 04/20/25
07:59 07:59 07:59 07:59
Intake Total 360 / 360 660 / 778 118 / 118
Output Total 2250 / 2250 2500 / 3350 4750 / 4750 900 / 900
Balance -1890 / -1890 -2500 / -3350 -4090 / -3972 -782 / -782
Physical Exam
Physical Exam
See above
[2025-04-19 12:10] LABS: Glucose - Point of Care 142 mg/dl (70-99)
[2025-04-19] MEDS: FARXIGA 10 MG PO (12:25)
[2025-04-19] MEDS: ALDACTONE 25 MG PO (12:25)
--- NOTE | 2025-04-19 13:48 | PTCARENOTE ---
Per Dr. Mayorga, ok to take pt off capnography.
--- NOTE | 2025-04-19 14:02 | CM ---
Addendum entered by Nuzhat Paul 04/19/25 14:16:
413.00$ for farxia and 47.00 for 30 days per [facility] on [address]. CM will update physician via tt.
Original Note:
Patient seen in ICU with physician. CM spoke with patient and he requested CM call patient sister to inquire as to the agency to use for Bi pap machine or VN. left at [phone], awaiting response. left for Patient also reviewed need
to submit prescription for Bipap, family to discuss which agency they want to use. Patient also considering VN agencies. CM will continue to follow for discharge planning needs.
Plan;home with bipap and VN supports; family considering options. CM will submit referrals when family chose
--- NOTE | 2025-04-19 14:44 | PTCARENOTE ---
Pt remains seated up in chair, assisted to and from bathroom for a large brown formed BM, using RW with standby assistance. Pt weaned to room air, sat high 80s occasionally, encouraged deep breathing, able to raise sa02 to 94% on his own very
quickly. Care ongoing.
[2025-04-19 17:02] LABS: Glucose - Point of Care 132 mg/dl (70-99)
[2025-04-19] MEDS: LOVENOX 40 MG SC (17:30)
[2025-04-19] MEDS: LIPITOR 40 MG PO (17:30)
--- NOTE | 2025-04-19 19:05 | PTCARENOTE ---
Assumed care. Patient received sitting up in bed, awake and alert, watching TV. He is without apparent signs of distress or discomfort. He states he feels 'back to normal.' He denies SOB, CP, N/V. He states that his LLE has mild pain at the wounds
but declines offer of pain med. BLEs with dressings CDI, Kerlix and UMM wraps noted. See nitro man charted on worklist flowsheet. BBS with good aeration upper lobes and clear, bilateral bases diminished. SR with 1st degree AVB on CM. Difficult
to auscultate heart sounds due to body habitus. BLE edema 1-2+. Positive pulses x 4 extremities, Pedal pulses diminished. Voids per urinal without difficulty, assists when needed. Verbalizes motivation to take care of himself, take medications
and f/u with doctors after discharge. Sport/bariatric bed low and in locked position, bed alarm on, call payne within reach.
[2025-04-19 21:31] LABS: Glucose - Point of Care 124 mg/dl (70-99)
--- NOTE | 2025-04-19 22:57 | PTCARENOTE ---
Report given verbally to RN assuming care, Akil LESLIE. Questions answered.
[2025-04-19] MEDS: ATIVAN 0.5 MG PO (23:50)
[2025-04-20] VITALS (12 sets, daily range): BP systolic 114–146; BP diastolic 55–88; PULSE 2–82; O2SAT 93; BMI 44.2
--- NOTE | 2025-04-20 03:30 | PTCARENOTE ---
Rec'd report from rn Akil, Pt arrived in sports bed from ICU. pt is aaox3. pt aware can not stay in room. resp called to place pt on bipap. pt oriented to room w/ call payne in reach.
[2025-04-20 07:35] LABS: Glucose - Point of Care 111 mg/dl (70-99)
[2025-04-20 07:46] LABS: Hematocrit 56.3 % (39.0-52.0); Hemoglobin 16.7 g/dL (13.0-18.0); Mean Corp Hgb Conc. 29.7 g/dL (33.0-37.0); Mean Corpuscular Volume 96.4 fL (80.0-94.0); Platelet Count 159 10^3/uL (130-400); Red Cell Dist. Width 14.2 % (11.5-14.5)
[2025-04-20] MEDS: NOVOLOG FLEXPEN-MODERATE RESISTANCE SC ×3 (07:48→17:05)
[2025-04-20 08:33] LABS: Blood Urea Nitrogen 39 mg/dl (9-20); Calcium 8.2 mg/dl (8.4-10.2); Chloride 88 mmol/L (98-107); Estimated Creatinine Clearance 84 ml/min; Glucose 113 mg/dl (70-99); Magnesium 2.3 mg/dl (1.6-2.3); Potassium 3.6 mmol/L (3.5-5.1); Sodium 139 mmol/L (135-145); Triglycerides 83 mg/dl (10-149); eGFR > 60.00
[2025-04-20 08:53] LABS: Carbon Dioxide 44 mmol/L (22-30)
[2025-04-20] MEDS: LASIX 80 MG IV ×2 (09:08→17:20)
[2025-04-20] MEDS: LOW STRENGTH ASPIRIN 81 MG PO (09:08)
[2025-04-20] MEDS: FARXIGA 10 MG PO (09:08)
[2025-04-20] MEDS: COZAAR 25 MG PO (09:10)
[2025-04-20] MEDS: MIRALAX 17 GRAMS PO (09:10)
[2025-04-20] MEDS: ALDACTONE 25 MG PO (09:10)
--- NOTE | 2025-04-20 11:18 | W.PN.CARDCBS ---
Addendum entered and electronically signed by Gerardo Juan MD 04/20/25 15:11:
I saw and examined the patient.
The Investment Advisor's note was reviewed and I agree with the note.
Comment: Briefly, 74-year-old man presenting with dyspnea and developed acute respiratory failure requiring intubation. Respiratory failure was likely multifactorial but in part related to heart failure preserved ejection fraction as well as COPD
and CARLA. He was extubated on 04/18 and subsequently downgraded from the ICU earlier today.
He remains on supplemental oxygen and still appears mildly volume overloaded on exam
Continue IV Lasix today and hopefully we can transition to oral Lasix in the next 24 to 48 hours
Follow renal function, electrolytes and daily weights
Wean oxygen as able
Reviewed the importance of salt restriction and adherence to diuretics with patient and at bedside
Original Note:
Today's Communication / Plan
-
Continue diuresis with IV lasix 80mg BID
Continue spironolactone, farxiga, losartan
Replete K
Wean O2 as able.
Impression / Plan
-
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
Impression:
Acute hypoxic respiratory failure requiring urgent intubation 04/17/25
Acute HFpEF
Suspected COPD exacerbation
Elevated troponin
Hyperkalemia, improved
NSVT
HTN
anxiety/claustrophobia
obesity
Echo 04/17/2025: EF 55-60%, mild cLVH, flattened intraventricular septum, dilated RV, PASP 39mmHg
Plan:
-Presented with SOB w/ exertion, worsening over several months. Admitted with acute hypoxic respiratory failure in the setting of heart failure and COPD, intubated 04/17, able to be extubated 04/18.
-Diuresing with IV lasix 80mg BID. Weight down to 308 lbs 04/20. Weight on admission was 342 lbs.
-Creat stable at 1.1. Negative on I&Os.
-Continue to follow daily weights, I&Os.
-Ongoing CHF education.
-Echo 04/17 noted preserved EF as noted above. Continue spironolactone and Farxiga, both new this admission. Continues on losartan 25mg daily.
-Not on BB due to COPD.
-Troponin elevation noted earlier in admission w/ peak troponin of 0.537, trending down thereafter. Suspect nonischemic myocardial injury in the setting of acute heart failure. Could consider OP PET/CT stress test.
-Continue aspirin 81mg daily and lipitor 40mg daily. LDL 67
-Stable on telemetry with no further NSVT noted.
-K 3.6 with mag 2.3. Will replete.
-Still on 2L NC. Wean as able.
HPI: Patient is a 74 year old male with PMH of HTN, COPD, anxiety, significant claustrophobia, obesity who presented to [facility] due to SOB particularly upon exertion over the last several months. He has had limited interaction with medical providers
as outpatient due to a significant anxiety/claustrophobia. With reported lower extremity edema with oozing, and weight gain. Overnight patient refused BiPAP, and this morning with limited responsiveness to verbal stimuli and sternal rub. Also with
repetitive lip/tongue movements. ABG with pH 7.2. He was moved to ICU and planned for intubation. proBNP 3600.
Progress Note - Program/Music Director
Subjective
Date of Service: April 20, 2025
Breathing improving.
Objective
Labs:
04/20/25 07:09
04/20/25 07:09
Labs
Hgb 16.7 g/dL (13.0-18.0) 04/20/25 07:09
Hct 56.3 % (39.0-52.0) H 04/20/25 07:09
Plt Count 159 10^3/uL (130-400) 04/20/25 07:09
PT 14.4 Sec (11.4-14.6) 04/17/25 08:38
INR 1.07 04/17/25 08:38
APTT 21.2 Sec (23.4-35.0) L 04/17/25 08:38
Sodium 139 mmol/L (135-145) 04/20/25 07:09
Potassium 3.6 mmol/L (3.5-5.1) 04/20/25 07:09
BUN 39 mg/dl (9-20) H 04/20/25 07:09
Creatinine 1.1 mg/dL (0.7-1.3) 04/20/25 07:09
Glucose 113 mg/dl (70-99) H 04/20/25 07:09
Troponins
04/17/25 04/17/25
14:34 18:30
Troponin I 0.364 H* Cancelled
Vital Signs and I&O:
Vital Signs
Temp Pulse Resp BP Pulse Ox
97.7 F 80 16 117/64 95
04/20/25 11:01 04/20/25 11:01 04/20/25 11:01 04/20/25 11:01 04/20/25 11:01
Vital Signs
Temp Pulse Resp BP Pulse Ox
97.7 F 80 16 117/64 95
04/20/25 11:01 04/20/25 11:01 04/20/25 11:01 04/20/25 11:01 04/20/25 11:01
Intake & Output
04/18/25 04/19/25 04/20/25 04/21/25
06:59 06:59 06:59 06:59
Intake Total 660 / 660 1536 / 1536
Output Total 2500 / 2500 4750 / 4750 2975 / 2975
Balance -2500 / -2500 -4090 / -4090 -1439 / -1439
Physical Exam
Physical Exam
GEN: No distress, awake, alert, oriented x3
HEENT: supple, anicteric, mmm
LUNGS: crackles at b/l bases, no wheezes/rales
CV: Reg, S1/S2, no murmur
EXT: No clubbing or cyanosis, Legs wrapped.
NEURO: Gross non-focal
[2025-04-20 11:56] LABS: Glucose - Point of Care 142 mg/dl (70-99)
[2025-04-20] MEDS: KCL 20 MEQ PO (12:17)
--- NOTE | 2025-04-20 12:48 | W.PN.PUL3 ---
Today's Communication / Plan
-
Continue nocturnal BiPAP 04/05-case management was consulted for set up upon discharge.
Continue diuretics
Cardiac management
Increase activity as able
Home oxygen assessment closer to discharge
Incentive spirometry encouraged
Eventual radiographic follow-up in the outpatient setting
Will follow briefly.
Assessment
-
Patient is a 74-year-old male with previous history of hypertension, anxiety, former smoker with suspected COPD and CARLA (never formally diagnosed) presenting with shortness of breath, worsened with exertion. This has been progressively worsening
for the past few months. He had noted in the past 2 weeks that his legs were progressively swelling and weeping. Patient is noncompliant with outpatient follow-up and preventative care. He rarely sees providers as an outpatient. Per he may
have gained about 20 pounds in the last 6 months. He is morbidly obese. Chest x-ray demonstrating very profound low lung volumes. His initial ABG on arrival demonstrating pH 7.2, pCO2 111. Admitted to IMU for BiPAP. He refused overnight. The
patient became more progressively unresponsive throughout the night, rapid response called in IMU. He is now transferred to ICU for intubation.
Acute on chronic hypercarbic respiratory failure -suspect due to obesity hypoventilation syndrome/obstructive sleep apnea.
Noncompliance with preventative care/CPAP
s/p intubation and mechanical ventilation, extubated 04/18
Suspect less likely AECOPD
Suspect CHF exacerbation, unknown chronicity
LE edema
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
Obstructive sleep apnea
Morbid (severe) obesity due to excess calories
Chronic obstructive pulmonary disease, no prior PFTs for review
Essential (primary) hypertension
Former smoker
BCC s/p excision 2022
Plan
Clinically improved from the pulmonary perspective
Currently on 1 L supplemental oxygen
Not bronchospastic on exam.
-
Heart failure with preserved ejection fraction acute on chronic.
No prior ECHO for review--new study during this hospital stay-enlarged RV/mild-mod PH, CTA obtained to r/o PE--negative
ProBNP >3000,
Continue IV diuresis patient responding well
Monitor on telemetry
Cards following-eventual ischemic workup.
Chronic hypercapnic respiratory failure: Possible undiagnosed obesity hypoventilation syndrome/obstructive sleep apnea.
Status post extubation
Continue BiPAP nocturnally and with naps 15/8 [id number] in the hospital.
Case management was consulted for set up at discharge.
Most recent ABG 04/18/2025: 7.55/53/86
-
Prior history of lung disease: suspect COPD and CARLA but has never seen OP Pulm
Supplemental O2 as indicated to maintain sats > 89%
Hopefully can wean off. Currently 1 L. Improved.
CXR/CT reviewed indicating very low lung volumes
Has bibasilar pleural effusion with subsegmental atelectasis.
Given his smoking history recommend eventual repeating CT chest in 3 months to document complete resolution and rule out lung nodules.
-
Currently no indication for systemic corticosteroids
Not on inhalers-no PFTs available.
CT scan without significant emphysema.
Incentive spirometry encouraged
No signs/symptoms suspicious for infectious etiology at this time
Observe off antibiotics for now
Follow fever trend, WBC count
---
Diagnostic Data
Chest X-Ray: 04/16/25- Examination is limited by relatively large body habitus. Lungs appear hypoinflated but clear of consolidation.
US 04/16/25- No evidence of deep venous thrombosis bilaterally.
CT Scan:
Echo: 04/17/25- Normal left ventricular chamber size. Mild concentric left ventricular hypertrophy. Normal left ventricular systolic function. Left ventricular ejection fraction is 55-60% by visual assessment. Flattened septum in systole and
diastole consistent with RV pressure and volume overload. Enlarged right ventricular size. Estimated pulmonary artery pressure of 39 mmHg assuming a right atrial pressure of 8 mmHg. Pulmonic valve is grossly normal but poorly visualized. Normal
pericardium and pleura without evidence of effusion. No prior echocardiograms available for review
PFT's:
Reports and relevant images were personally reviewed.
Total time spent on this consultation/encounter __40__ minutes which includes review of history, physical exam, medications, laboratory data, personal review of imaging, extensive review of outpatient records, discussion with care team and
respiratory therapy.
Subjective Data
-
Date of Service:
Date of Service: April 20, 2025
Chief Complaint: Pulmonary Follow Up (Acute on chronic hypercapnic/hypoxemic respiratory failure)
Subjective:
Clinically feels better
Tolerating BiPAP at night
denies phlegm production
Denies orthopnea
Review of Systems
Cardiopulmonary: Dyspnea (Improved) and Dyspnea on Exertion (Improved)
Objective Data
Data Reviewed
Vital Signs / I&O / Oxygen:
Vital Signs
Temp Pulse Resp BP Pulse Ox
97.7 F 80 16 117/64 93
04/20/25 11:01 04/20/25 11:01 04/20/25 11:01 04/20/25 11:01 04/20/25 12:14
Intake and Output
04/19/25 04/20/25 04/21/25
06:59 06:59 06:59
Intake Total 660 / 660 1536 / 1536
Output Total 4750 / 4750 2975 / 2975
Balance -4090 / -4090 -1439 / -1439
SaO2 [CPAP/PSV] 95
SaO2 [A/C] 93
SaO2 93
Nasal Cannula flow liters per 1
minute
Physical Exam
General: Comfortable and Other (NAD, morbidly obese)
HEENT: Normocephalic and Anicteric
Cardiovascular: S1-S2, Regular Rhythm and Peripheral Edema
Respiratory: Clear and Non-Labored Respirations
GI: Soft, Non Distended and Non Tender
Neurology: Awake, Alert, Oriented and No Motor Deficits
Skin: Warm and Dry
Labs/Micro/Reports
Lab Data
04/20/25 07:09
04/20/25 07:09
Microbiology
04/16/25 21:23 Nose MRSA Screen - Final
No Methicillin Resistant Staphylococcus aureus isolated.
--- NOTE | 2025-04-20 14:09 | W.PN.HOSP.TC ---
Addendum entered and electronically signed by Marva Dunlap MD 04/20/25 15:59:
I saw and evaluated the patient independently. I reviewed the resident�s note and agree with findings and plan as documented by Dr. Neil.
GENERAL: well developed, well nourished, male awake and in no apparent distress
HEENT: NC/AT--on O2
HEART: regular rate and rhythm, +S1, +S2
LUNGS : better air movement bilaterally
ABDOM: soft, nontender, nondistended, + bowel sounds
EXT: no cyanosis, clubbing--still with edema--legs wrapped
NEUROLOGIC: grossly intact
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
now agreeable to follow up and wear BiPAP--settings 08/27 (did better with, not 04/05)
Troponin elevation--likely due to nonischemic myocardial troponin elevation from hypoxia/hypercapnia--apprec cards--ECHO with preserved EF but volume overload--EKG showed normal sinus rhythm with first-degree AV block, incomplete RBBB--cont diuresis
with lasix, aldactone
COPD with likely chronic CO2 retention--no PFTs--will need Outpt pulm follow up
Essential hypertension with hypertensive urgency--elevated BPS--improved post intubation-- cont losartan
Claustrophobia/panic disorder-- Advised patient to follow with psychiatry outpatient--PRN HS ativan for tolerating BiPAP--try dropping setting to 08/27
Morbid obesity- Affects all aspects of care
Noncompliance to medications--Affects all aspects of care--Shaker Tender discussed high risk for respiratory distress and reintubation. He does not want to pursue tracheostomy but apparently will now be compliant with BiPAP
DVT proph-- Lovenox
CODE STATUS-- full code
Original Note:
Today's Communication/Plan
-
Awaiting on family's decision about which BiPAP to order.
Wean off O2
Pending cardiology's decision to switch from IV Lasix to PO
Assessment / Plan
Assessment / Plan
74-year-old male with a past medical history of hypertension, CARLA, claustrophobia, panic disorder presented to the ED with progressive dyspnea, leg swelling with weeping and weight gain.�Patient has not been compliant to prescription medications/
outpatient follow up in the past. He was diagnosed with acute hypercapnic/hypoxic respiratory failure with elevated blood pressure. Patient intubated on 04/17/25, and extubated on 04/18/2025. Progressed to regular solid and thin liquid diet.
Assessment and plan:
# COPD with acute hypercapnic respiratory failure�
# Obstructive sleep apnea
# CHF with preserved ejection fraction likely due to untreated CARLA and obesity-hypoventilation syndrome
CT was negative for PE
Echo showed LVEF 55-60%
Cardiology following: Continue diuresis with IV Lasix 80mg BID, spironolactone, farxiga, losartan, replete K and wean O2 as able.�
Pulmonary medicine following: Continue nocturnal BiPAP 04/05, Increase activity as able, Incentive spirometry encouraged, Eventual radiographic follow-up in the outpatient setting.
Patient advised to follow-up outpatient.
# Elevated troponin- likely due to nonischemic myocardial injury� -stable
Serial trops discontinued after they started downtrending�
Cardiology following.
EKG: NSR with first degree AV block and incomplete RBBB
# Hypertension
Losartan 25 mg PO restarted after extubation�
Lasix 80 mg IV BID being given
# Morbid obesity
Affects all aspects of care
# Non compliance to medications
Affects all aspects of care. The patient refuses to take medications or get further testing done. He refused tracheostomy and hospice.
DVT Lovenox.
Full code
PCP: Dr. Victoriano Phillips
Anticipated Discharge: 24 - 48 hours
Subjective/Interval History
-
Date of Service: April 20, 2025
74-year-old male with a past medical history of hypertension, CARLA, claustrophobia, panic disorder presented to the ED with progressive dyspnea, leg swelling and weight gain.� ABG showed acute hypercapnic respiratory failure with CO2 retention with
elevated blood pressure after which he was intubated on 04/17/2025. ABG pH 7.21, PCO2 111, PO299, HCO3 44-BP improved after he was intubated. He has been non-compliant to medications and refused sleep study despite excessive daytime sleepiness.
Patient was extubated 04/18. Passed speech evaluation and progressed to regular solids and thin liquids, which he is tolerating. No new symptoms for the past day. Agreeable to using BiPAP at home. Patient will be following up with Ted
[facility] after being discharged. He states that he knows he has been ' stubborn' his entire life, but that has not been working for him so he is willing to benton his habits.
Objective Data
-
Labs:
Laboratory Results
04/20/25
07:09
WBC 8.9
Hgb 16.7
Hct 56.3 H
Plt Count 159
Sodium 139
Potassium 3.6
Chloride 88 L
Carbon Dioxide 44 H
BUN 39 H
Creatinine 1.1
Glucose 113 H
Calcium 8.2 L
Vital Signs:
Vital Signs
Temp Pulse Resp BP Pulse Ox
97.7 F 80 16 117/64 93
04/20/25 11:01 04/20/25 11:01 04/20/25 11:01 04/20/25 11:01 04/20/25 12:14
I&O
04/19/25 04/20/25 04/21/25
06:59 06:59 06:59
Intake Total 660 / 660 1536 / 1536 480 / 480
Output Total 4750 / 4750 2975 / 2975
Balance -4090 / -4090 -1439 / -1439 480 / 480
Review of Systems
-
History Source: Patient
All other systems: Reviewed and negative
Constitutional: Reports No Symptoms
EENT: Reports No Symptoms Reported
Respiratory: Reports Trouble Breathing
Cardiac: Reports No Symptoms
Abdomen/GI: Reports No Symptoms
Breast: Reports No Symptoms
Genitourinary: Reports No Symptoms
Musculoskeletal: Reports No Symptoms
Skin: Reports No Symptoms
Neuro: Reports No Symptoms
Endocrine: Reports No Symptoms
Hematologic / Lymphatic: Reports No Symptoms
Allergy / Immunology: Reports No Symptoms
Physical Exam
-
General: Morbidly Obese
HEENT: Normocephalic, Atraumatic and Moist Mucous Membranes
Respiratory: Clear to Auscultation
Cardiac: Regular Rhythm and S1/S2
Breast: Deferred by me
GI: Soft, Nontender, Nondistended and Normal Bowel Sounds
Rectal: Deferred by Provider
Genito-urinary: No Costovertebral Tender
Musculoskeletal: No Clubbing, No Cyanosis, Edema, Right Lower Extrem and Edema, Left Lower Extrem
Skin: Warm and Dry (Weeping over bilateral lower extremities)
Neuro: AO x 3 and Nonfocal/Grossly Intact
Hematologic / Lymphatic: No Lymphadenopathy
Psych: Calm
Data Reviewed
-
Labs: Labs Reviewed by me and Discussed with Physician
Old Records: Reviewed
--- NOTE | 2025-04-20 14:39 | CM ---
Addendum entered by Nuzhat Paul 04/20/25 18:05:
spoke with patient sister and plan is for [facility] instead of [facility]. referral sent.
Addendum entered by Nuzhat Paul 04/20/25 18:01:
[facility] declined due to insurance. [facility] recommending [facility] as next step, referral will need to be sent.
Original Note:
Patient seen at bedside with , brother in law and Physicians on . Patient brother in law indicated family would like to go with [facility] awaiting form and will send referral to [facility] for Bipap awaiting confirmation of patient O2 needs at
home and patient will need [facility] referral as well. CM left VM for patient sister to confirm [facility] referral and [facility]. CM will continue to follow for discharge planning needs.
Plan; home with VN; [facility] and pending home O2 qualification and Bipap delivery to home
--- NOTE | 2025-04-20 14:52 | W.PN.HOSP.TC ---
Today's Communication/Plan
-
Awaiting placement to SNF, CM following.
Assessment / Plan
Assessment / Plan
74-year-old male with a past medical history of hypertension, CARLA, claustrophobia, panic disorder presented to the ED with progressive dyspnea, leg swelling with weeping and weight gain.�Patient has not been compliant to prescription medications/
outpatient follow up in the past. He was diagnosed with acute hypercapnic/hypoxic respiratory failure with elevated blood pressure. Patient intubated on 04/17/25, and extubated on 04/18/2025. Progressed to regular solid and thin liquid diet.
Willing to follow up outpatient.
Assessment and plan:
# COPD with acute hypercapnic respiratory failure�
# Obstructive sleep apnea
# CHF with preserved ejection fraction likely due to untreated CARLA and obesity-hypoventilation syndrome
CT was negative for PE
Echo showed LVEF 55-60%
Cardiology following: Continue diuresis with IV Lasix 80mg BID, spironolactone, Farxiga, losartan, replete K.
Pulmonary medicine following: Continue nocturnal BiPAP 08/27, Increase activity as able, Incentive spirometry encouraged, Eventual radiographic follow-up in the outpatient setting. Patient advised to follow-up outpatient.
Needs in house BiPAP and O2 prior to DC, CM following
# Elevated troponin- likely due to nonischemic myocardial injury� -stable
Serial trops discontinued after they started downtrending�
EKG: NSR with first degree AV block and incomplete RBBB
Cardiology following: Continue IV Lasix, Aldactone, eventual transition to PO
# Right leg pain
Has similar pain at baseline due to lower extremity wounds
Continue Tylenol 500 mg q4hPRN
# Hypertension -with hypertensive urgency
Improved postintubation.
Losartan 25 mg PO restarted after extubation�
#Claustrophobia/panic disorder
Advised follow-up with psychiatry outpatient
PRN HS Ativan for tolerating BiPAP -tolerating 08/27 setting instead of 04/05.
# Morbid obesity
# Non compliance to medications
Affects all aspects of care
Disposition: PT recommends SNF. Hopeful discharge to SNF today/tomorrow with in-house BiPAP/O2, CM following.
DVT Lovenox.
Full code
PCP: Dr. Victoriano Phillips
Anticipated Discharge: Within 24 hours
Subjective/Interval History
-
Date of Service: April 20, 2025
Patient states he feels sleepy because he woke up at 3:30 AM and could not fall asleep. Patient having right leg pain which is relieved with Tylenol as needed. No new symptoms.
Objective Data
-
Labs:
Laboratory Results
04/20/25
07:09
WBC 8.9
Hgb 16.7
Hct 56.3 H
Plt Count 159
Sodium 139
Potassium 3.6
Chloride 88 L
Carbon Dioxide 44 H
BUN 39 H
Creatinine 1.1
Glucose 113 H
Calcium 8.2 L
Vital Signs:
Vital Signs
Temp Pulse Resp BP Pulse Ox
97.7 F 80 16 117/64 93
04/20/25 11:01 04/20/25 11:01 04/20/25 11:01 04/20/25 11:01 04/20/25 12:14
I&O
04/19/25 04/20/25 04/21/25
06:59 06:59 06:59
Intake Total 660 / 660 1536 / 1536 480 / 480
Output Total 4750 / 4750 2975 / 2975
Balance -4090 / -4090 -1439 / -1439 480 / 480
Review of Systems
-
History Source: Patient
All other systems: Reviewed and negative
Constitutional: Reports No Symptoms
EENT: Reports No Symptoms Reported
Respiratory: Reports No Symptoms
Cardiac: Reports No Symptoms
Abdomen/GI: Reports No Symptoms
Breast: Reports No Symptoms
Genitourinary: Reports No Symptoms
Musculoskeletal: Reports No Symptoms
Skin: Reports No Symptoms
Neuro: Reports No Symptoms
Endocrine: Reports No Symptoms
Hematologic / Lymphatic: Reports No Symptoms
Allergy / Immunology: Reports No Symptoms
Physical Exam
-
General: No Apparent Distress, Comfortable, Conversant and Morbidly Obese
HEENT: Normocephalic, Atraumatic, Moist Mucous Membranes and Anicteric
Respiratory: Clear to Auscultation
Cardiac: Regular Rhythm and S1/S2
GI: Soft, Nontender, Nondistended and Normal Bowel Sounds
Musculoskeletal: No Clubbing, No Cyanosis, Edema, Right Lower Extrem and Edema, Left Lower Extrem
Neuro: Awake, AO x 3 and Nonfocal/Grossly Intact
Psych: Calm
Data Reviewed
-
Labs: Labs Reviewed by me and Discussed with Physician
Old Records: Reviewed
[2025-04-20 16:28] LABS: Glucose - Point of Care 135 mg/dl (70-99)
[2025-04-20] MEDS: LASIX IV (17:05)
[2025-04-20] MEDS: LIPITOR 40 MG PO (17:21)
[2025-04-20] MEDS: LOVENOX 40 MG SC (17:22)
[2025-04-20] MEDS: TYLENOL 500 MG PO (18:14)
[2025-04-20 21:18] LABS: Glucose - Point of Care 138 mg/dl (70-99)
[2025-04-21] VITALS (7 sets, daily range): BP systolic 103–135; BP diastolic 56–76; PULSE 2–88; BMI 44.4
[2025-04-21] MEDS: ATIVAN 0.5 MG PO (00:55)
[2025-04-21 07:08] LABS: Glucose - Point of Care 109 mg/dl (70-99)
[2025-04-21 07:54] LABS: Hematocrit 55.0 % (39.0-52.0); Hemoglobin 16.8 g/dL (13.0-18.0); Mean Corp Hgb Conc. 30.5 g/dL (33.0-37.0); Mean Corpuscular Volume 95.2 fL (80.0-94.0); Platelet Count 154 10^3/uL (130-400); Red Cell Dist. Width 14.2 % (11.5-14.5)
[2025-04-21 08:20] LABS: ALT (SGPT) 25 U/L (0-50); AST (SGOT) 29 U/L (17-59); Albumin 3.7 g/dl (3.5-5.0); Alkaline Phosphatase 61 U/L (38-126); Blood Urea Nitrogen 42 mg/dl (9-20); Calcium 8.3 mg/dl (8.4-10.2); Chloride 91 mmol/L (98-107); Estimated Creatinine Clearance 93 ml/min; Glucose 106 mg/dl (70-99); Magnesium 2.4 mg/dl (1.6-2.3); Potassium 3.7 mmol/L (3.5-5.1); Sodium 138 mmol/L (135-145); Total Protein 7.1 g/dl (6.3-8.2); eGFR > 60.00
[2025-04-21 08:33] LABS: Carbon Dioxide 41 mmol/L (22-30)
[2025-04-21] MEDS: NOVOLOG FLEXPEN-MODERATE RESISTANCE SC ×3 (08:55→16:53)
[2025-04-21] MEDS: LASIX 80 MG IV ×2 (09:00→16:47)
[2025-04-21] MEDS: LOW STRENGTH ASPIRIN 81 MG PO (09:00)
[2025-04-21] MEDS: FARXIGA 10 MG PO (09:00)
[2025-04-21] MEDS: ALDACTONE 25 MG PO (09:00)
[2025-04-21] MEDS: COZAAR 25 MG PO (09:00)
[2025-04-21] MEDS: FLUSH (NSS) 2 FLUSH IV ×2 (09:01→16:48)
[2025-04-21] MEDS: MIRALAX 17 GRAMS PO (09:01)
[2025-04-21] MEDS: DESENEX/MITRAZOL/ZEASORB 1 APPLIC TOPICAL (09:02)
[2025-04-21] MEDS: FLUSH (NSS) 1 FLUSH IV (09:03)
[2025-04-21] MEDS: TYLENOL 500 MG PO (09:06)
[2025-04-21 12:00] LABS: Glucose - Point of Care 138 mg/dl (70-99)
--- NOTE | 2025-04-21 12:18 | W.PN.PUL3 ---
Today's Communication / Plan
-
Remains on nightly BIPAP, home set up arranged
Likely to need home O2 set up, CM aware
Discharge planning to SNF
Outpatient pulmonary FU recommended
Assessment
-
Patient is a 74-year-old male with previous history of hypertension, anxiety, former smoker with suspected COPD and CARLA (never formally diagnosed) presenting with shortness of breath, worsened with exertion. This has been progressively worsening
for the past few months. He had noted in the past 2 weeks that his legs were progressively swelling and weeping. Patient is noncompliant with outpatient follow-up and preventative care. He rarely sees providers as an outpatient. Per he may
have gained about 20 pounds in the last 6 months. He is morbidly obese. Chest x-ray demonstrating very profound low lung volumes. His initial ABG on arrival demonstrating pH 7.2, pCO2 111. Admitted to IMU for BiPAP. He refused overnight. The
patient became more progressively unresponsive throughout the night, rapid response called in IMU. He is now transferred to ICU for intubation.
Acute on chronic hypercarbic respiratory failure -suspect due to obesity hypoventilation syndrome/obstructive sleep apnea.
Noncompliance with preventative care/CPAP
s/p intubation and mechanical ventilation, extubated 04/18
Suspect less likely AECOPD
Suspect CHF exacerbation, unknown chronicity
LE edema
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
Obstructive sleep apnea
Morbid (severe) obesity due to excess calories
Chronic obstructive pulmonary disease, no prior PFTs for review
Essential (primary) hypertension
Former smoker
BCC s/p excision 2022
Plan
Clinically improved from the pulmonary perspective
Currently on 1 L supplemental oxygen
Not bronchospastic on exam.
-
Heart failure with preserved ejection fraction acute on chronic.
No prior ECHO for review--new study during this hospital stay-enlarged RV/mild-mod PH, CTA obtained to r/o PE--negative
ProBNP >3000,
Continue IV diuresis patient responding well
Monitor on telemetry
Cards following-eventual ischemic workup.
Chronic hypercapnic respiratory failure: Possible undiagnosed obesity hypoventilation syndrome/obstructive sleep apnea.
Status post extubation
Continue BiPAP nocturnally and with naps 15/8 [id number] in the hospital.
Case management was consulted for set up at discharge.
Most recent ABG 04/18/2025: 7.55/53/86
-
Prior history of lung disease: suspect COPD and CARLA but has never seen OP Pulm
Supplemental O2 as indicated to maintain sats > 89%
Hopefully can wean off. Currently 1 L. Improved.
CXR/CT reviewed indicating very low lung volumes
Has bibasilar pleural effusion with subsegmental atelectasis.
Given his smoking history recommend eventual repeating CT chest in 3 months to document complete resolution and rule out lung nodules.
-
Currently no indication for systemic corticosteroids
Not on inhalers-no PFTs available.
CT scan without significant emphysema.
Incentive spirometry encouraged
No signs/symptoms suspicious for infectious etiology at this time
Observe off antibiotics for now
Follow fever trend, WBC count
Home set up
We discussed OP FU
Discharge planning per team likely to SNF
Updated family in room
---
Diagnostic Data
Chest X-Ray: 04/16/25- Examination is limited by relatively large body habitus. Lungs appear hypoinflated but clear of consolidation.
US 04/16/25- No evidence of deep venous thrombosis bilaterally.
CT Scan:
Echo: 04/17/25- Normal left ventricular chamber size. Mild concentric left ventricular hypertrophy. Normal left ventricular systolic function. Left ventricular ejection fraction is 55-60% by visual assessment. Flattened septum in systole and
diastole consistent with RV pressure and volume overload. Enlarged right ventricular size. Estimated pulmonary artery pressure of 39 mmHg assuming a right atrial pressure of 8 mmHg. Pulmonic valve is grossly normal but poorly visualized. Normal
pericardium and pleura without evidence of effusion. No prior echocardiograms available for review
PFT's:
Reports and relevant images were personally reviewed.
Total time spent on this consultation/encounter __51__ minutes which includes review of history, physical exam, medications, laboratory data, personal review of imaging, extensive review of outpatient records, discussion with care team and
respiratory therapy.
Subjective Data
-
Date of Service:
Date of Service: April 21, 2025
Chief Complaint: Pulmonary Follow Up (Acute on chronic hypercapnic/hypoxemic respiratory failure)
Subjective:
No new events, tolerating BIPAP nightly
Ambulating, sits in chair
Objective Data
Data Reviewed
Vital Signs / I&O / Oxygen:
Vital Signs
Temp Pulse Resp BP Pulse Ox
98.2 F 80 24 124/65 94
04/21/25 11:45 04/21/25 11:45 04/21/25 11:45 04/21/25 11:45 04/21/25 11:45
Intake and Output
04/20/25 04/21/25 04/22/25
06:59 06:59 06:59
Intake Total 1536 / 1536 1440 / 1440
Output Total 2975 / 2975 975 / 975
Balance -1439 / -1439 465 / 465
SaO2 [CPAP/PSV] 95
SaO2 [A/C] 93
SaO2 94
Nasal Cannula flow liters per 1
minute
Physical Exam
General: Comfortable and Other (NAD, morbidly obese)
HEENT: Normocephalic and Anicteric
Cardiovascular: S1-S2, Regular Rhythm and Peripheral Edema
Respiratory: Clear and Non-Labored Respirations
GI: Soft, Non Distended and Non Tender
Neurology: Awake, Alert, Oriented and No Motor Deficits
Skin: Warm and Dry
Labs/Micro/Reports
Lab Data
04/21/25 06:32
04/21/25 06:32
Microbiology
04/16/25 21:23 Nose MRSA Screen - Final
No Methicillin Resistant Staphylococcus aureus isolated.
--- NOTE | 2025-04-21 12:34 | W.PN.CARDCBS ---
Today's Communication / Plan
-
Continue IV diuresis x 24 hours, plan to transition to p.o. 04/22/2025
Continue goal-directed medical therapy
Monitor on telemetry
Impression / Plan
-
Primary Critical Care Educator: last seen by Dr. Kim in 2022
Impression:
Acute hypoxic respiratory failure requiring urgent intubation 04/17/25
Acute HFpEF
Suspected COPD exacerbation
Elevated troponin
Hyperkalemia, improved
NSVT
HTN
anxiety/claustrophobia
obesity
Echo 04/17/2025: EF 55-60%, mild cLVH, flattened intraventricular septum, dilated RV, PASP 39mmHg
Plan:
-Presented with SOB w/ exertion, worsening over several months. Admitted with acute hypoxic respiratory failure in the setting of heart failure and COPD, intubated 04/17, able to be extubated 04/18.
-Diuresing with IV lasix 80mg BID. Weight down to 308 lbs 04/20. Weight on admission was 342 lbs.
-Creat stable at 1.1 -> 1.0. Negative on I&Os.
-Continue to follow daily weights, I&Os.
-Ongoing CHF education.
-Echo 04/17 noted preserved EF as noted above. Continue spironolactone and Farxiga, both new this admission. Continues on losartan 25mg daily.
-Not on BB due to COPD.
-Troponin elevation noted earlier in admission w/ peak troponin of 0.537, trending down thereafter. Suspect nonischemic myocardial injury in the setting of acute heart failure. Could consider OP PET/CT stress test.
-Continue aspirin 81mg daily and lipitor 40mg daily. LDL 67
-Stable on telemetry with no further NSVT noted.
-K 3.6 with mag 2.3. Continue to replete.
-Still on 2L NC. Wean as able.
HPI: Patient is a 74 year old male with PMH of HTN, COPD, anxiety, significant claustrophobia, obesity who presented to [facility] due to SOB particularly upon exertion over the last several months. He has had limited interaction with medical providers
as outpatient due to a significant anxiety/claustrophobia. With reported lower extremity edema with oozing, and weight gain. Overnight patient refused BiPAP, and this morning with limited responsiveness to verbal stimuli and sternal rub. Also with
repetitive lip/tongue movements. ABG with pH 7.2. He was moved to ICU and planned for intubation. proBNP 3600.
Progress Note - Critical Care Educator
Subjective
Date of Service: April 21, 2025
Patient seen and examined. No acute events overnight. Patient resting comfortably in bed. Patient somnolent but easily arousable. Denies chest pain, shortness of breath, weakness.
Objective
Labs:
04/21/25 06:32
04/21/25 06:32
Labs
Hgb 16.8 g/dL (13.0-18.0) 04/21/25 06:32
Hct 55.0 % (39.0-52.0) H 04/21/25 06:32
Plt Count 154 10^3/uL (130-400) 04/21/25 06:32
PT 14.4 Sec (11.4-14.6) 04/17/25 08:38
INR 1.07 04/17/25 08:38
APTT 21.2 Sec (23.4-35.0) L 04/17/25 08:38
Sodium 138 mmol/L (135-145) 04/21/25 06:32
Potassium 3.7 mmol/L (3.5-5.1) 04/21/25 06:32
BUN 42 mg/dl (9-20) H 04/21/25 06:32
Creatinine 1.0 mg/dL (0.7-1.3) 04/21/25 06:32
Glucose 106 mg/dl (70-99) H 04/21/25 06:32
Vital Signs and I&O:
Vital Signs
Temp Pulse Resp BP Pulse Ox
98.2 F 80 24 124/65 94
04/21/25 11:45 04/21/25 11:45 04/21/25 11:45 04/21/25 11:45 04/21/25 11:45
Vital Signs
Temp Pulse Resp BP Pulse Ox
98.2 F 80 24 124/65 94
04/21/25 11:45 04/21/25 11:45 04/21/25 11:45 04/21/25 11:45 04/21/25 11:45
Intake & Output
04/19/25 04/20/25 04/21/25 04/22/25
06:59 06:59 06:59 06:59
Intake Total 660 / 660 1536 / 1536 1440 / 1440
Output Total 4750 / 4750 2975 / 2975 975 / 975
Balance -4090 / -4090 -1439 / -1439 465 / 465
Physical Exam
Physical Exam
GEN: No distress, awake, alert, oriented x3
HEENT: supple, anicteric, mmm
LUNGS: crackles at b/l bases, no wheezes/rales
CV: Reg, S1/S2, no murmur
EXT: No clubbing or cyanosis, Legs wrapped.
NEURO: Gross non-focal
--- NOTE | 2025-04-21 12:45 | W.PN.HOSP.TC ---
Addendum entered and electronically signed by Marva Dunlap MD 04/21/25 13:04:
I saw and evaluated the patient independently. I reviewed the resident�s note and agree with findings and plan as documented by Dr. Cooper.
GENERAL: well developed, well nourished, male awake and in no apparent distress
HEENT: NC/AT--on O2
HEART: regular rate and rhythm, +S1, +S2
LUNGS : better air movement bilaterally
ABDOM: soft, nontender, nondistended, + bowel sounds
EXT: no cyanosis, clubbing--edema improving--legs wrapped
NEUROLOGIC: grossly intact
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
geospatial extractor analysis--now extubated, passed speech eval--- CT neg for PE--more likely CHF from untreated CARLA with obesity/hypoventilation syndrome--apprec cards--cont diuresis (lasix 80 mg IV BID)--adding spironolactone and Farxiga--daily weights, I/Os--pt
now agreeable to follow up and wear BiPAP--settings 08/27 (did better with, not 04/05)--need in the house prior to d/c
Troponin elevation--likely due to nonischemic myocardial troponin elevation from hypoxia/hypercapnia--apprec cards--ECHO with preserved EF but volume overload--EKG showed normal sinus rhythm with first-degree AV block, incomplete RBBB--cont diuresis
with lasix, aldactone--eventual transition to PO
COPD with likely chronic CO2 retention--no PFTs--will need Outpt pulm follow up
Essential hypertension with hypertensive urgency--elevated BPS--improved post intubation-- cont losartan
Claustrophobia/panic disorder-- Advised patient to follow with psychiatry outpatient--PRN HS ativan for tolerating BiPAP--try dropping setting to 12/8
Morbid obesity- Affects all aspects of care
Noncompliance to medications--Affects all aspects of care--Bsa/Aml Compliance Officer discussed high risk for respiratory distress and reintubation. He does not want to pursue tracheostomy but apparently will now be compliant with BiPAP
DVT proph-- Lovenox
CODE STATUS-- full code
therapy recommending SNF but pt refusing
Original Note:
Today's Communication/Plan
-
IV lasix
Attempting to obtain Bipap machine for home
Assessment / Plan
Assessment / Plan
74-year-old male with a past medical history of hypertension, CARLA, claustrophobia, panic disorder presented to the ED with progressive dyspnea, leg swelling with weeping and weight gain.�Patient has not been compliant to prescription medications/
outpatient follow up in the past. He was diagnosed with acute hypercapnic/hypoxic respiratory failure with elevated blood pressure. Patient intubated on 04/17/25, and extubated on 04/18/2025. Progressed to regular solid and thin liquid diet.
Assessment and plan:
# COPD with acute hypercapnic respiratory failure�
# Obstructive sleep apnea
# CHF with preserved ejection fraction likely due to untreated CARLA and obesity-hypoventilation syndrome
CT was negative for PE
Echo showed LVEF 55-60%
Cardiology following: Continue diuresis with IV Lasix 80mg BID, spironolactone, farxiga, losartan, replete K and wean O2 as able - will defer to cardiology to transition to PO lasix.
Pulmonary medicine following: Continue nocturnal BiPAP 08/27, Increase activity as able, Incentive spirometry encouraged, Eventual radiographic follow-up in the outpatient setting.
Patient advised to follow-up outpatient.
# Elevated troponin- likely due to nonischemic myocardial injury� -stable
Serial trops discontinued after they started downtrending�
Cardiology following.
EKG: NSR with first degree AV block and incomplete RBBB - no BB
# Hypertension
Losartan 25 mg PO restarted after extubation�
Lasix 80 mg IV BID being given
# Morbid obesity
Affects all aspects of care
# Non compliance to medications
Affects all aspects of care. The patient refuses to take medications or get further testing done. He refused tracheostomy and hospice.
Discharge pending transition to PO lasix and bipap at home. SNF recommended but Pt adamant he does not want to go to SNF. Conversations ongoing.
DVT Lovenox.
Full code
PCP: Dr. Victoriano Phillips
Anticipated Discharge: 24 - 48 hours
Subjective/Interval History
-
Date of Service: April 21, 2025
Wore his Bipap overnight but this am after being off bipap satting 88% so put on 1L O2 and O2 increased to 95%.
Objective Data
-
Labs:
Laboratory Results
04/21/25
06:32
WBC 9.3
Hgb 16.8
Hct 55.0 H
Plt Count 154
Sodium 138
Potassium 3.7
Chloride 91 L
Carbon Dioxide 41 H
BUN 42 H
Creatinine 1.0
Glucose 106 H
Calcium 8.3 L
Total Bilirubin 1.5 H
AST 29
ALT 25
Alkaline Phosphatase 61
Vital Signs:
Vital Signs
Temp Pulse Resp BP Pulse Ox
98.2 F 80 24 124/65 94
04/21/25 11:45 04/21/25 11:45 04/21/25 11:45 04/21/25 11:45 04/21/25 11:45
I&O
04/20/25 04/21/25 04/22/25
06:59 06:59 06:59
Intake Total 1536 / 1536 1440 / 1440
Output Total 2975 / 2975 975 / 975
Balance -1439 / -1439 465 / 465
Review of Systems
-
History Source: Patient
EENT: Reports No Symptoms Reported
Respiratory: Reports No Symptoms
Cardiac: Reports No Symptoms
Abdomen/GI: Reports No Symptoms
Skin: Reports No Symptoms
Neuro: Reports No Symptoms
Physical Exam
-
General: No Apparent Distress
HEENT: Normocephalic
Respiratory: Clear to Auscultation
Cardiac: Regular Rhythm and S1/S2
GI: Soft, Nontender, Nondistended and Normal Bowel Sounds
Musculoskeletal: Edema, Right Lower Extrem and Edema, Left Lower Extrem
Skin: Warm and Dry
Neuro: AO x 3
Psych: Calm
[2025-04-21 15:51] LABS: Glucose - Point of Care 88 mg/dl (70-99)
--- NOTE | 2025-04-21 16:13 | CM ---
Met with patient with family at bedside. Patient was made aware of indication on behalf of PT/OT for SNF prior to returning home. Patient's family thought that would be a good idea (son, daughter in law and two brothers). Patient is agreeable and
understands that although his preference is to return home right away, he feels he needs therapy first. Patient and family chose: [facility] and no alternates at this time. Will fax referral through [employer]. Patient will need authorization
Plan: Case management will continue to follow and assist with discharge planning. Patient hopeful for [facility]F.
[2025-04-21] MEDS: LIPITOR 40 MG PO (17:02)
[2025-04-21] MEDS: LOVENOX 40 MG SC (17:02)
[2025-04-21 21:20] LABS: Glucose - Point of Care 144 mg/dl (70-99)
[2025-04-22] VITALS (9 sets, daily range): BP systolic 103–147; BP diastolic 54–86; PULSE 2; BMI 44.2
[2025-04-22] MEDS: ATIVAN 0.5 MG PO ×2 (00:55→23:49)
[2025-04-22 08:13] LABS: Hematocrit 54.7 % (39.0-52.0); Hemoglobin 16.8 g/dL (13.0-18.0); Mean Corp Hgb Conc. 30.7 g/dL (33.0-37.0); Mean Corpuscular Volume 94.8 fL (80.0-94.0); Platelet Count 161 10^3/uL (130-400); Red Cell Dist. Width 14.2 % (11.5-14.5)
[2025-04-22 08:32] LABS: Glucose - Point of Care 97 mg/dl (70-99)
[2025-04-22] MEDS: MIRALAX 17 GRAMS PO (08:35)
[2025-04-22] MEDS: NOVOLOG FLEXPEN-MODERATE RESISTANCE SC ×3 (08:35→17:27)
[2025-04-22] MEDS: FARXIGA 10 MG PO (08:36)
[2025-04-22] MEDS: LOW STRENGTH ASPIRIN 81 MG PO (08:36)
[2025-04-22] MEDS: ALDACTONE 25 MG PO (08:36)
[2025-04-22] MEDS: COZAAR 25 MG PO (08:36)
[2025-04-22 08:44] LABS: Blood Urea Nitrogen 45 mg/dl (9-20); Calcium 8.7 mg/dl (8.4-10.2); Chloride 91 mmol/L (98-107); Estimated Creatinine Clearance 93 ml/min; Glucose 107 mg/dl (70-99); Magnesium 2.4 mg/dl (1.6-2.3); Potassium 4.2 mmol/L (3.5-5.1); Sodium 136 mmol/L (135-145); eGFR > 60.00
[2025-04-22] MEDS: LASIX 80 MG IV (08:47)
[2025-04-22 08:55] LABS: Carbon Dioxide 38 mmol/L (22-30)
--- NOTE | 2025-04-22 11:40 | W.PN.HOSP.TC ---
Addendum entered and electronically signed by Marva Dunlap MD 04/22/25 15:46:
I saw and evaluated the patient independently. I reviewed the resident�s note and agree with findings and plan as documented by Dr. Cooper.
GENERAL: well developed, well nourished, male awake and in no apparent distress
HEENT: NC/AT--on O2--bleeding lip (he picked at it)
HEART: regular rate and rhythm, +S1, +S2
LUNGS : better air movement bilaterally
ABDOM: soft, nontender, nondistended, + bowel sounds
EXT: no cyanosis, clubbing--edema improving--legs wrapped
NEUROLOGIC: grossly intact
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
sales enablement specialist--now extubated, passed speech eval--- CT neg for PE--more likely CHF from untreated CARLA with obesity/hypoventilation syndrome--apprec cards--cont diuresis (lasix 80 mg IV BID)--adding spironolactone and Farxiga--daily weights, I/Os--pt
now agreeable to follow up and wear BiPAP and agreeable to SNF--settings 08/27 (did better with this, not 04/05)--need in the house prior to d/c--will also likely need low dose home O2
Troponin elevation--likely due to nonischemic myocardial troponin elevation from hypoxia/hypercapnia--apprec cards--ECHO with preserved EF but volume overload--EKG showed normal sinus rhythm with first-degree AV block, incomplete RBBB--cont diuresis
with lasix, aldactone--eventual transition to PO
COPD with likely chronic CO2 retention--no PFTs--will need Outpt pulm follow up
Essential hypertension with hypertensive urgency--elevated BPS--improved post intubation-- cont losartan
Claustrophobia/panic disorder-- Advised patient to follow with psychiatry outpatient--PRN HS ativan for tolerating BiPAP--try dropping setting to 08/27
Morbid obesity- Affects all aspects of care
Noncompliance to medications--Affects all aspects of care--Photography Coordinator discussed high risk for respiratory distress and reintubation. He does not want to pursue tracheostomy but apparently will now be compliant with BiPAP
DVT proph-- Lovenox
CODE STATUS-- full code
hopeful d/c Mon or Tu to SNF (CM aware that pt now agreeable)
Original Note:
Today's Communication/Plan
-
Lasix 80 mg p.o. twice daily
Home O2 assessment
Likely discharge tomorrow to SNF
Assessment / Plan
Assessment / Plan
74-year-old male with a past medical history of hypertension, CARLA, claustrophobia, panic disorder presented to the ED with progressive dyspnea, leg swelling with weeping and weight gain.�Patient has not been compliant to prescription medications/
outpatient follow up in the past. He was diagnosed with acute hypercapnic/hypoxic respiratory failure with elevated blood pressure. Patient intubated on 04/17/25, and extubated on 04/18/2025. Progressed to regular solid and thin liquid diet.
Assessment and plan:
# COPD with acute hypercapnic respiratory failure�
# Obstructive sleep apnea
# CHF with preserved ejection fraction likely due to untreated CARLA and obesity-hypoventilation syndrome
CT was negative for PE
Echo showed LVEF 55-60%
Cardiology following: Continue diuresis with IV Lasix 80mg BID, spironolactone, farxiga, losartan, replete K and wean O2 as able - Transition to 80mg Lasix PO BID
Pulmonary medicine following: Continue nocturnal BiPAP 08/27, Increase activity as able, Incentive spirometry encouraged, Eventual radiographic follow-up in the outpatient setting.
Home O2 assessment pending. Will likely need home O2.
Patient advised to follow-up outpatient.
# Elevated troponin- likely due to nonischemic myocardial injury� -stable
Serial trops discontinued after they started downtrending�
Cardiology following.
EKG: NSR with first degree AV block and incomplete RBBB - no BB
# Hypertension
Losartan 25 mg PO restarted after extubation�
Lasix 80 mg now PO BID
# Morbid obesity
Affects all aspects of care
# Non compliance to medications
Affects all aspects of care. The patient refuses to take medications or get further testing done. He refused tracheostomy and hospice.
Patient is now amenable to SNF. Would prefer [facility]. Will likely need home O2. Home O2 assessment likely tomorrow.
DVT Lovenox.
Full code
PCP: Dr. Victoriano Phillips
Anticipated Discharge: Within 24 hours
Subjective/Interval History
-
Date of Service: April 22, 2025
Satting on 86% on room air after taking off bipap this am. Put back on 1L and O2 >90%. Will likely need home O2.
Objective Data
-
Labs:
Laboratory Results
04/22/25
07:58
WBC 9.6
Hgb 16.8
Hct 54.7 H
Plt Count 161
Sodium 136
Potassium 4.2
Chloride 91 L
Carbon Dioxide 38 H
BUN 45 H
Creatinine 1.0
Glucose 107 H
Calcium 8.7
Vital Signs:
Vital Signs
Temp Pulse Resp BP Pulse Ox
98.2 F 71 20 121/73 96
04/22/25 08:00 04/22/25 08:47 04/22/25 08:00 04/22/25 08:47 04/22/25 08:00
I&O
04/21/25 04/22/25 04/23/25
06:59 06:59 06:59
Intake Total 1440 / 1440 1440 / 1440
Output Total 975 / 975 1370 / 1370
Balance 465 / 465 70 / 70
Review of Systems
-
History Source: Patient
Constitutional: Reports No Symptoms
EENT: Reports No Symptoms Reported
Respiratory: Reports No Symptoms
Cardiac: Reports No Symptoms
Abdomen/GI: Reports No Symptoms
Neuro: Reports No Symptoms
Physical Exam
-
General: No Apparent Distress and Obese
Respiratory: Clear to Auscultation
Cardiac: Regular Rhythm and S1/S2
GI: Soft, Nontender, Nondistended and Normal Bowel Sounds
Musculoskeletal: Edema, Right Lower Extrem, Edema, Left Lower Extrem and Other (improved from prior )
Skin: Warm and Dry
Neuro: AO x 3
Psych: Calm
[2025-04-22 12:11] LABS: Glucose - Point of Care 258 mg/dl (70-99)
--- NOTE | 2025-04-22 13:26 | W.PN.CARDCBS ---
Today's Communication / Plan
-
Transition patient to oral diuretic
Intake and output, daily weights
Monitor renal function and electrolytes
Impression / Plan
-
Primary Sales Support Assistant: last seen by Dr. Kim in 2022
Impression:
Acute hypoxic respiratory failure requiring urgent intubation 04/17/25
Acute HFpEF
Suspected COPD exacerbation
Elevated troponin
Hyperkalemia, improved
NSVT
HTN
anxiety/claustrophobia
obesity
Echo 04/17/2025: EF 55-60%, mild cLVH, flattened intraventricular septum, dilated RV, PASP 39mmHg
Plan:
-Presented with SOB w/ exertion, worsening over several months. Admitted with acute hypoxic respiratory failure in the setting of heart failure and COPD, intubated 04/17, able to be extubated 04/18.
-Diuresing with IV lasix 80mg BID. Weight down to 308 lbs 04/20. Weight on admission was 342 lbs.
-Creat stable at 1.1 -> 1.0. Negative on I&Os.
-Continue to follow daily weights, I&Os.
-Ongoing CHF education.
-Echo 04/17 noted preserved EF as noted above. Continue spironolactone and Farxiga, both new this admission. Continues on losartan 25mg daily.
-Not on BB due to COPD.
-Troponin elevation noted earlier in admission w/ peak troponin of 0.537, trending down thereafter. Suspect nonischemic myocardial injury in the setting of acute heart failure. Could consider OP PET/CT stress test.
-Continue aspirin 81mg daily and lipitor 40mg daily. LDL 67
-Stable on telemetry with no further NSVT noted.
-K 3.6 with mag 2.3. Continue to replete.
-Still on 2L NC. Wean as able.
HPI: Patient is a 74 year old male with PMH of HTN, COPD, anxiety, significant claustrophobia, obesity who presented to [facility] due to SOB particularly upon exertion over the last several months. He has had limited interaction with medical providers
as outpatient due to a significant anxiety/claustrophobia. With reported lower extremity edema with oozing, and weight gain. Overnight patient refused BiPAP, and this morning with limited responsiveness to verbal stimuli and sternal rub. Also with
repetitive lip/tongue movements. ABG with pH 7.2. He was moved to ICU and planned for intubation. proBNP 3600.
Progress Note - Sales Support Assistant
Subjective
Date of Service: April 22, 2025
Patient seen and examined. No acute events overnight. Patient resting company in bed. Patient reports improvement overall breathing. Patient chest pain, shortness of breath, or weakness.
Objective
Labs:
04/22/25 07:58
04/22/25 07:58
Labs
Hgb 16.8 g/dL (13.0-18.0) 04/22/25 07:58
Hct 54.7 % (39.0-52.0) H 04/22/25 07:58
Plt Count 161 10^3/uL (130-400) 04/22/25 07:58
PT 14.4 Sec (11.4-14.6) 04/17/25 08:38
INR 1.07 04/17/25 08:38
APTT 21.2 Sec (23.4-35.0) L 04/17/25 08:38
Sodium 136 mmol/L (135-145) 04/22/25 07:58
Potassium 4.2 mmol/L (3.5-5.1) 04/22/25 07:58
BUN 45 mg/dl (9-20) H 04/22/25 07:58
Creatinine 1.0 mg/dL (0.7-1.3) 04/22/25 07:58
Glucose 107 mg/dl (70-99) H 04/22/25 07:58
Vital Signs and I&O:
Vital Signs
Temp Pulse Resp BP Pulse Ox
98.6 F 66 17 141/68 97
04/22/25 11:00 04/22/25 11:00 04/22/25 11:00 04/22/25 11:00 04/22/25 11:00
Vital Signs
Temp Pulse Resp BP Pulse Ox
98.6 F 66 17 141/68 97
04/22/25 11:00 04/22/25 11:00 04/22/25 11:00 04/22/25 11:00 04/22/25 11:00
Intake & Output
04/20/25 04/21/25 04/22/25 04/23/25
06:59 06:59 06:59 06:59
Intake Total 1536 / 1536 1440 / 1440 1440 / 1440
Output Total 2975 / 2975 975 / 975 1370 / 1370
Balance -1439 / -1439 465 / 465 70 / 70
Physical Exam
Physical Exam
GEN: No distress, awake, alert, oriented x3, obese
HEENT: supple, anicteric, mmm
LUNGS: crackles at b/l bases, no wheezes/rales
CV: Reg, S1/S2, no murmur
EXT: No clubbing or cyanosis, Legs wrapped.
NEURO: Gross non-focal
Telemetry shows sinus rhythm PVC
--- NOTE | 2025-04-22 13:43 | W.PN.PUL3 ---
Today's Communication / Plan
-
Continue BIPAP nightly, PRN--home set up per CM
Encouraged OOB, PT/OT
Home O2 set up
Discharge planning to SNF, patient now agreeable
OP FU in 4-6 weeks w/ PFTs
Assessment
-
Patient is a 74-year-old male with previous history of hypertension, anxiety, former smoker with suspected COPD and CARLA (never formally diagnosed) presenting with shortness of breath, worsened with exertion. This has been progressively worsening
for the past few months. He had noted in the past 2 weeks that his legs were progressively swelling and weeping. Patient is noncompliant with outpatient follow-up and preventative care. He rarely sees providers as an outpatient. Per he may
have gained about 20 pounds in the last 6 months. He is morbidly obese. Chest x-ray demonstrating very profound low lung volumes. His initial ABG on arrival demonstrating pH 7.2, pCO2 111. Admitted to IMU for BiPAP. He refused overnight. The
patient became more progressively unresponsive throughout the night, rapid response called in IMU. He is now transferred to ICU for intubation.
Acute on chronic hypercarbic respiratory failure -suspect due to obesity hypoventilation syndrome/obstructive sleep apnea.
Noncompliance with preventative care/CPAP
s/p intubation and mechanical ventilation, extubated 04/18
Suspect less likely AECOPD
Suspect CHF exacerbation, unknown chronicity
LE edema
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
Obstructive sleep apnea
Morbid (severe) obesity due to excess calories
Chronic obstructive pulmonary disease, no prior PFTs for review
Essential (primary) hypertension
Former smoker
BCC s/p excision 2022
Plan
Clinically improved from the pulmonary perspective
Currently on 1 L supplemental oxygen
Not bronchospastic on exam.
-
Heart failure with preserved ejection fraction acute on chronic.
No prior ECHO for review--new study during this hospital stay-enlarged RV/mild-mod PH, CTA obtained to r/o PE--negative
ProBNP >3000,
Continue IV diuresis patient responding well
Monitor on telemetry
Cards following-eventual ischemic workup.
Chronic hypercapnic respiratory failure: Possible undiagnosed obesity hypoventilation syndrome/obstructive sleep apnea.
Status post extubation
Continue BiPAP nocturnally and with naps 15/8 [id number] in the hospital.
Case management was consulted for set up at discharge.
Most recent ABG 04/18/2025: 7.55/53/86
-
Prior history of lung disease: suspect COPD and CARLA but has never seen OP Pulm
Supplemental O2 as indicated to maintain sats > 89%
Hopefully can wean off. Currently 1 L. Improved.
CXR/CT reviewed indicating very low lung volumes
Has bibasilar pleural effusion with subsegmental atelectasis.
Given his smoking history recommend eventual repeating CT chest in 3 months to document complete resolution and rule out lung nodules.
-
Currently no indication for systemic corticosteroids
Not on inhalers-no PFTs available.
CT scan without significant emphysema.
Incentive spirometry encouraged
No signs/symptoms suspicious for infectious etiology at this time
Observe off antibiotics for now
Follow fever trend, WBC count
Home set up
We discussed OP FU
Discharge planning per team likely to SNF
Updated family in room
---
Diagnostic Data
Chest X-Ray: 04/16/25- Examination is limited by relatively large body habitus. Lungs appear hypoinflated but clear of consolidation.
US 04/16/25- No evidence of deep venous thrombosis bilaterally.
CT Scan:
Echo: 04/17/25- Normal left ventricular chamber size. Mild concentric left ventricular hypertrophy. Normal left ventricular systolic function. Left ventricular ejection fraction is 55-60% by visual assessment. Flattened septum in systole and
diastole consistent with RV pressure and volume overload. Enlarged right ventricular size. Estimated pulmonary artery pressure of 39 mmHg assuming a right atrial pressure of 8 mmHg. Pulmonic valve is grossly normal but poorly visualized. Normal
pericardium and pleura without evidence of effusion. No prior echocardiograms available for review
PFT's:
Reports and relevant images were personally reviewed.
Total time spent on this consultation/encounter __45__ minutes which includes review of history, physical exam, medications, laboratory data, personal review of imaging, extensive review of outpatient records, discussion with care team and
respiratory therapy.
Subjective Data
-
Date of Service:
Date of Service: April 22, 2025
Chief Complaint: Pulmonary Follow Up (Acute on chronic hypercapnic/hypoxemic respiratory failure)
Subjective:
No new events, remains compliant with BIPAP
Now agreeing to SNF
Objective Data
Data Reviewed
Vital Signs / I&O / Oxygen:
Vital Signs
Temp Pulse Resp BP Pulse Ox
98.6 F 66 17 141/68 97
04/22/25 11:00 04/22/25 11:00 04/22/25 11:00 04/22/25 11:00 04/22/25 11:00
Intake and Output
04/21/25 04/22/25 04/23/25
06:59 06:59 06:59
Intake Total 1440 / 1440 1440 / 1440
Output Total 975 / 975 1370 / 1370
Balance 465 / 465 70 / 70
SaO2 [CPAP/PSV] 95
SaO2 [A/C] 93
SaO2 97
Nasal Cannula flow liters per 1
minute
Physical Exam
General: Comfortable and Other (NAD, morbidly obese)
HEENT: Normocephalic and Anicteric
Cardiovascular: S1-S2, Regular Rhythm and Peripheral Edema
Respiratory: Clear and Non-Labored Respirations
GI: Soft, Non Distended and Non Tender
Neurology: Awake, Alert, Oriented and No Motor Deficits
Skin: Warm and Dry
Labs/Micro/Reports
Lab Data
04/22/25 07:58
04/22/25 07:58
[2025-04-22 14:07] LABS: Glucose - Point of Care 159 mg/dl (70-99)
[2025-04-22] MEDS: LASIX 80 MG PO (16:21)
[2025-04-22 17:03] LABS: Glucose - Point of Care 128 mg/dl (70-99)
[2025-04-22] MEDS: LIPITOR 40 MG PO (17:36)
[2025-04-22] MEDS: LOVENOX 40 MG SC (17:36)
[2025-04-22 21:35] LABS: Glucose - Point of Care 93 mg/dl (70-99)
[2025-04-22] MEDS: TYLENOL 500 MG PO (22:55)
[2025-04-23] VITALS (9 sets, daily range): BP systolic 96–133; BP diastolic 56–80; PULSE 2–85; O2SAT 94; BMI 43.9
[2025-04-23 07:03] LABS: Glucose - Point of Care 178 mg/dl (70-99)
[2025-04-23 09:03] LABS: Hematocrit 54.9 % (39.0-52.0); Hemoglobin 16.5 g/dL (13.0-18.0); Mean Corp Hgb Conc. 30.1 g/dL (33.0-37.0); Mean Corpuscular Volume 94.0 fL (80.0-94.0); Platelet Count 159 10^3/uL (130-400); Red Cell Dist. Width 14.1 % (11.5-14.5)
[2025-04-23] MEDS: LASIX 80 MG PO ×2 (09:21→16:52)
[2025-04-23] MEDS: COZAAR 25 MG PO (09:21)
[2025-04-23] MEDS: LOW STRENGTH ASPIRIN 81 MG PO (09:22)
[2025-04-23] MEDS: ALDACTONE 25 MG PO (09:22)
[2025-04-23] MEDS: MIRALAX 17 GRAMS PO (09:22)
[2025-04-23] MEDS: FARXIGA 10 MG PO (09:22)
--- NOTE | 2025-04-23 09:26 | W.PN.CARDCBS ---
Addendum entered and electronically signed by Joya Martines DO 04/23/25 13:52:
I saw and examined the patient.
The Sourcing Associate's note was reviewed and I agree with the note.
Comment: Patient was seen and examined with at bedside. He offers no new complaints
GEN: Morbidly obese disheveled gentleman sitting out of bed to chair with nasal cannula oxygen
HEENT: mmm
LUNGS: crackles at b/l bases, no wheezes/rales
CV: Reg, S1/S2, no murmur
EXT: No clubbing or cyanosis, Legs wrapped.
Plan:
74-year-old morbidly obese (BMI >43) gentleman who is shied away from medical care for years was admitted with acute on chronic hypercarbic respiratory failure due to obesity hypoventilation syndrome/obstructive sleep apnea, COPD, and heart failure
with preserved ejection fraction
-Intubated 04/17 and extubated 04/18
-Pulmonary is following him and recommend pulmonary follow-up as an outpatient.
-Now on BiPAP and supplemental O2
Heart failure with preserved ejection fraction
-Diuresed this admission with IV lasix 80mg BID. Weight down to 306 lbs. on 04/23.
-Continue PO lasix 80mg BID. Volume status appears improved.
-Creat stable at 1.1.
-Continue to follow daily weights, I&Os. Will need BMP in 1 week as OP.
-Echo 04/17 noted preserved EF as above. Continues on spironolactone, losartan, and Farxiga.
-No BB due to COPD.
-Did have mild elevation troponin w/ peak 0.537, managing as nonischemic myocardial injury in the setting of acute heart failure.
-Given risk factors would consider PET/CT stress test as an outpatient
-Continue aspirin 81mg daily and lipitor 40mg daily. LDL 67
Stable from a cardiac standpoint to be discharged to SNF when bed available
Original Note:
Today's Communication / Plan
-
Continue PO lasix 80mg BID
BMP in 1 week
Continue spironolactone, losartan, farxiga
Follow up arranged.
Impression / Plan
-
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 Kim in 2022
Impression:
Acute hypoxic respiratory failure requiring urgent intubation 04/17/25
Acute HFpEF
Suspected COPD exacerbation
Elevated troponin
Hyperkalemia, improved
NSVT
HTN
anxiety/claustrophobia
obesity
Echo 04/17/2025: EF 55-60%, mild cLVH, flattened intraventricular septum, dilated RV, PASP 39mmHg
Plan:
-Presented with SOB w/ exertion, worsening over several months. Admitted with acute hypoxic respiratory failure in the setting of heart failure and COPD, intubated 04/17, able to be extubated 04/18.
-Diuresed this admission with IV lasix 80mg BID. Weight down to 306 lbs. on 04/23.
-Continue PO lasix 80mg BID. Volume status appears improved.
-Creat stable at 1.1.
-Continue to follow daily weights, I&Os. Will need BMP in 1 week as OP.
-Echo 04/17 noted preserved EF as above. Continues on spironolactone, losartan, and Farxiga.
-No BB due to COPD.
-Did have mild elevation troponin w/ peak 0.537, managing as nonischemic myocardial injury in the setting of acute heart failure. Would consider OP PET/CT stress test.
-Continue aspirin 81mg daily and lipitor 40mg daily. LDL 67
-Still on 1L NC. Wean as able.
HPI: Patient is a 74 year old male with PMH of HTN, COPD, anxiety, significant claustrophobia, obesity who presented to [facility] due to SOB particularly upon exertion over the last several months. He has had limited interaction with medical providers
as outpatient due to a significant anxiety/claustrophobia. With reported lower extremity edema with oozing, and weight gain. Overnight patient refused BiPAP, and this morning with limited responsiveness to verbal stimuli and sternal rub. Also with
repetitive lip/tongue movements. ABG with pH 7.2. He was moved to ICU and planned for intubation. proBNP 3600.
Progress Note - Dance Professor
Subjective
Date of Service: April 23, 2025
Improving, but feels tired today. Did not sleep well last night.
Objective
Labs:
04/23/25 08:19
Labs
Hgb 16.5 g/dL (13.0-18.0) 04/23/25 08:19
Hct 54.9 % (39.0-52.0) H 04/23/25 08:19
Plt Count 159 10^3/uL (130-400) 04/23/25 08:19
PT 14.4 Sec (11.4-14.6) 04/17/25 08:38
INR 1.07 04/17/25 08:38
APTT 21.2 Sec (23.4-35.0) L 04/17/25 08:38
Sodium 136 mmol/L (135-145) 04/22/25 07:58
Potassium 4.2 mmol/L (3.5-5.1) 04/22/25 07:58
BUN 45 mg/dl (9-20) H 04/22/25 07:58
Creatinine 1.0 mg/dL (0.7-1.3) 04/22/25 07:58
Glucose 107 mg/dl (70-99) H 04/22/25 07:58
Vital Signs and I&O:
Vital Signs
Temp Pulse Resp BP Pulse Ox
98.3 F 79 16 129/75 98
04/23/25 08:01 04/23/25 08:01 04/23/25 08:01 04/23/25 08:01 04/23/25 08:01
Vital Signs
Temp Pulse Resp BP Pulse Ox
98.3 F 79 16 129/75 98
04/23/25 08:01 04/23/25 08:01 04/23/25 08:01 04/23/25 08:01 04/23/25 08:01
Intake & Output
04/21/25 04/22/25 04/23/25 04/24/25
06:59 06:59 06:59 06:59
Intake Total 1440 / 1440 1440 / 1440 480 / 480
Output Total 975 / 975 1370 / 1370 375 / 375
Balance 465 / 465 70 / 70 105 / 105
Physical Exam
Physical Exam
GEN: No distress, awake, alert, oriented x3
HEENT: supple, anicteric, mmm
LUNGS: crackles at b/l bases, no wheezes/rales
CV: Reg, S1/S2, no murmur
EXT: No clubbing or cyanosis, Legs wrapped.
NEURO: Gross non-focal
[2025-04-23] MEDS: NOVOLOG FLEXPEN-MODERATE RESISTANCE 1 UNITS SC (09:30)
--- NOTE | 2025-04-23 09:40 | CM ---
Addendum entered by Dorie Viveros 04/24/25 08:34:
Late entry: Patient agreeable to [facility] NPI #: [id number]
Dr. Hutchins NPI #: [id number]
CM to initiate authorization
PLAN: [facility], once auth obtained
Report #: [phone] Fax #:[phone]
Original Note:
Patient seen at bedside with Khalida
discussed additional referrals to be added in careport
agreeable to [facility] & [facility]
referrals were added in careport
[facility] declined, as they do not accept ins
PLAN: SNF, pending acceptance/bed availability when stable, will need insurance auth once bed secured
--- NOTE | 2025-04-23 09:40 | W.PN.PUL.V3 ---
Today's Communication / Plan
-
Wean oxygen
Assess discharge supplemental oxygen needs
BiPAP continues
Agree with discharge to outpatient rehab if possible
Outpatient pulmonary/sleep disorders follow-up
Assessment
-
Patient is a 74-year-old male with previous history of hypertension, anxiety, former smoker with suspected COPD and CARLA (never formally diagnosed) presenting with shortness of breath, worsened with exertion. This has been progressively worsening
for the past few months. He had noted in the past 2 weeks that his legs were progressively swelling and weeping. Patient is noncompliant with outpatient follow-up and preventative care. He rarely sees providers as an outpatient. Per he may
have gained about 20 pounds in the last 6 months. He is morbidly obese. Chest x-ray demonstrating very profound low lung volumes. His initial ABG on arrival demonstrating pH 7.2, pCO2 111. Admitted to IMU for BiPAP. He refused overnight. The
patient became more progressively unresponsive throughout the night, rapid response called in IMU. He is now transferred to ICU for intubation.
Acute on chronic hypercarbic respiratory failure -suspect due to obesity hypoventilation syndrome/obstructive sleep apnea.
Noncompliance with preventative care/CPAP
s/p intubation and mechanical ventilation, extubated 04/18/25
Suspect less likely AECOPD
Suspect CHF exacerbation, unknown chronicity
LE edema
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
Obstructive sleep apnea
Morbid (severe) obesity due to excess calories
Chronic obstructive pulmonary disease, no prior PFTs for review
Essential (primary) hypertension
Former smoker
BCC s/p excision 2022
Plan
Respiratory status has improved
Prior history of lung disease: suspect COPD and CARLA but has never seen OP Pulm
Continue supplemental oxygen as needed-assess discharge supplemental oxygen needs-likely will require oxygen at time of discharge
Chronic hypercapnic respiratory insufficiency suspected-possibly undiagnosed obesity hypoventilation syndrome/obstructive sleep apnea
Continue BiPAP 15/8 cm at night and during the daytime as needed-appears to be tolerating
Case management involved for set up as an outpatient
ABG 04/18/25-53/86/7. 55
Aspiration precautions
Nebulizers if needed-currently not bronchospastic
Given his smoking history recommend eventual repeating CT chest in 3 months to document complete resolution and rule out lung nodules.
Observe off systemic steroids
Observe off antibiotics
Heart failure with preserved EF-acute on top of chronic
Diuresis as tolerated-currently on Lasix 80 mg orally twice daily
Monitor renal function, electrolytes, intake/output, lower extremity edema and weight
Replace electrolytes as needed
Cardiology following-correspondence reviewed
Eventual ischemia workup
DVT prophylaxis-on Lovenox
Nutrition
Physical therapy-discharge to rehab
Reviewed with case management
Diagnostic Data
Chest X-Ray: 04/16/25- Examination is limited by relatively large body habitus. Lungs appear hypoinflated but clear of consolidation.
US 04/16/25- No evidence of deep venous thrombosis bilaterally.
CT chest 04/17/2025-no pulmonary emboli, distention of pulmonary arteries raising possibility of pulmonary artery hypertension, endotracheal tube in place, mild to moderate patchy consolidation likely atelectasis
Echo: 04/17/25- Normal left ventricular chamber size. Mild concentric left ventricular hypertrophy. Normal left ventricular systolic function. Left ventricular ejection fraction is 55-60% by visual assessment. Flattened septum in systole and
diastole consistent with RV pressure and volume overload. Enlarged right ventricular size. Estimated pulmonary artery pressure of 39 mmHg assuming a right atrial pressure of 8 mmHg. Pulmonic valve is grossly normal but poorly visualized. Normal
pericardium and pleura without evidence of effusion. No prior echocardiograms available for review
Reports and relevant images were personally reviewed.
Subjective Data
-
Date of Service:
Date of Service: April 23, 2025
Chief Complaint: Pulmonary Follow Up (Acute on chronic hypercapnic/hypoxemic respiratory failure) and Dyspnea Follow Up
Subjective:
Tolerated BiPAP, still weak, no complaints of shortness of breath, has minimal productive cough, minimal chest congestion, no abdominal pain
Review of Systems
General: Other (Per HPI)
Objective Data
Data Reviewed
Vital Signs / I&O:
Vital Signs
Temp Pulse Resp BP Pulse Ox
98.3 F 79 16 129/75 98
04/23/25 08:01 04/23/25 08:01 04/23/25 08:01 04/23/25 08:01 04/23/25 08:01
Intake and Output
04/22/25 04/23/25 04/24/25
06:59 06:59 06:59
Intake Total 1440 / 1440 480 / 480
Output Total 1370 / 1370 375 / 375
Balance 70 / 70 105 / 105
SaO2: 98
Nasal Cannula flow liters per minute: 1
Physical Exam
General: Respiratory Distress (n), Comfortable and Other (NAD, morbidly obese)
HEENT: Normocephalic and Anicteric
Cardiovascular: Regular Rhythm and Peripheral Edema
Respiratory: Wheeze (n), Crackles (n), Rhonchi (n), Non-Labored Respirations, Accessory Resp Muscle Use and Stridor (n)
GI: Soft, Non Distended and Non Tender
Neurology: Awake, Alert, Oriented and No Motor Deficits
Skin: Warm, Good Color, Cyanosis (n), Jaundice (n) and Rash
Labs/Micro/Reports
Lab Data
04/23/25 08:19
[2025-04-23 09:41] LABS: Blood Urea Nitrogen 42 mg/dl (9-20); Calcium 8.5 mg/dl (8.4-10.2); Chloride 91 mmol/L (98-107); Estimated Creatinine Clearance 84 ml/min; Glucose 109 mg/dl (70-99); Potassium 4.1 mmol/L (3.5-5.1); Sodium 136 mmol/L (135-145); Triglycerides 75 mg/dl (10-149); eGFR > 60.00
[2025-04-23 09:51] LABS: Carbon Dioxide 39 mmol/L (22-30)
--- NOTE | 2025-04-23 10:44 | W.PN.UPDATE ---
Update Note
Progress Note Update
I saw and evaluated the patient. I reviewed the resident�s note and agree with findings and plan as documented in the resident�s note.
No new complaints.
Gen: NAD, awake and alert
Eyes: EOMI, PERRLA, no scleral icterus.
Neck: supple.
CV: RRR, +S1/S2, no m/r/g.
Resp: CTAB, no rales, wheezes, or rhonchi.
Abd: +BS, soft, NT, ND
Skin: No rashes. UMM bandages on B/L LEs
Neuro: CN 2-12 intact, non-focal.
Psych: Normal mood and affect.
CTA chest: No PE. Pulmonary artery branching order level of the most proximal pulmonary embolism: N/A. Distention of the pulmonary arteries, raising possibility of pulmonary artery hypertension. Borderline right paraesophageal lymph nodes.
Endotracheal tube in place. Mild to moderate patchy consolidation, most likely atelectasis. Pneumonia not entirely excluded.
Echo: Normal left ventricular chamber size.
Mild concentric left ventricular hypertrophy.
Normal left ventricular systolic function.
Left ventricular ejection fraction is 55-60% by visual assessment.
Flattened septum in systole and diastole consistent with RV pressure and volume
overload.
Enlarged right ventricular size.
Estimated pulmonary artery pressure of 39 mmHg assuming a right atrial pressure
of 8 mmHg.
Pulmonic valve is grossly normal but poorly visualized.
Normal pericardium and pleura without evidence of effusion.
No prior echocardiograms available for review
Acute hypercapnic/hypoxemic respiratory failure:
-with underlying chronic CO2 retention due to COPD and CARLA/OHS due to morbid obesity
-due to acute on chronic hypercapnia from COPD/CARLA/OHS and acute HFpEF
-noncompliant with medical care
-pt obtunded 04/17/25 requiring intubation (ABG pH 7.21, PCO2 111, PO299, HCO3 44), now extubated
-Echo above
-s/p course of IV lasix, now transitioned to PO Lasix
-cont ARB/Aldactone/Farxiga
-daily wts, I/Os
-cont BIPAP HS
Other problems:
Elevated troponin due to nonischemic myocardial injury
COPD with chronic CO2 retention: outpt pulm f/u for PFTs
Essential HTN with hypertensive urgency: BPs improved post intubation. cont losartan/Aldactone/lasix.
Claustrophobia/panic disorder: advised patient to follow with psychiatry outpatient. PRN HS ativan for tolerating BiPAP.
Morbid obesity due to excess calorie
Medical noncompliance: Affects all aspects of care. 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 He does not want to pursue tracheostomy but apparently will now be compliant with BiPAP
FULL/Lovenox
Medically cleared for d/c.
[2025-04-23 11:09] LABS: Glucose - Point of Care 240 mg/dl (70-99)
[2025-04-23] MEDS: TYLENOL 500 MG PO (11:38)
[2025-04-23] MEDS: NOVOLOG FLEXPEN-MODERATE RESISTANCE 3 UNITS SC (13:19)
[2025-04-23 16:49] LABS: Glucose - Point of Care 109 mg/dl (70-99)
[2025-04-23] MEDS: NOVOLOG FLEXPEN-MODERATE RESISTANCE SC (16:52)
[2025-04-23] MEDS: LOVENOX 40 MG SC (17:39)
[2025-04-23] MEDS: LIPITOR 40 MG PO (17:39)
[2025-04-23 21:36] LABS: Glucose - Point of Care 118 mg/dl (70-99)
[2025-04-23] MEDS: ATIVAN 0.5 MG PO (23:29)
[2025-04-24] VITALS (8 sets, daily range): BP systolic 108–141; BP diastolic 62–87; PULSE 2; BMI 44.0
[2025-04-24 07:50] LABS: Glucose - Point of Care 112 mg/dl (70-99)
[2025-04-24 07:51] LABS: Hematocrit 52.6 % (39.0-52.0); Hemoglobin 16.1 g/dL (13.0-18.0); Mean Corp Hgb Conc. 30.6 g/dL (33.0-37.0); Mean Corpuscular Volume 94.3 fL (80.0-94.0); Platelet Count 166 10^3/uL (130-400); Red Cell Dist. Width 14.1 % (11.5-14.5)
[2025-04-24] MEDS: NOVOLOG FLEXPEN-MODERATE RESISTANCE SC ×3 (07:54→16:22)
[2025-04-24 08:36] LABS: Blood Urea Nitrogen 47 mg/dl (9-20); Calcium 8.6 mg/dl (8.4-10.2); Carbon Dioxide 38 mmol/L (22-30); Chloride 92 mmol/L (98-107); Estimated Creatinine Clearance 92 ml/min; Glucose 108 mg/dl (70-99); Magnesium 2.6 mg/dl (1.6-2.3); Potassium 4.2 mmol/L (3.5-5.1); Sodium 137 mmol/L (135-145); eGFR > 60.00
[2025-04-24] MEDS: FARXIGA 10 MG PO (08:44)
[2025-04-24] MEDS: ALDACTONE 25 MG PO (08:44)
[2025-04-24] MEDS: LOW STRENGTH ASPIRIN 81 MG PO (08:44)
[2025-04-24] MEDS: COZAAR 25 MG PO (08:44)
[2025-04-24] MEDS: MIRALAX 17 GRAMS PO (08:44)
[2025-04-24] MEDS: LASIX 80 MG PO ×2 (08:44→15:29)
--- NOTE | 2025-04-24 08:57 | W.PN.PUL.V3 ---
Today's Communication / Plan
-
Continue BiPAP at night
Attempt to wean oxygen
Increase activity
Diuresis as tolerated
Eventual discharge to rehab
Outpatient pulmonary/sleep disorders follow-up
Assessment
-
Patient is a 74-year-old male with previous history of hypertension, anxiety, former smoker with suspected COPD and CARLA (never formally diagnosed) presenting with shortness of breath, worsened with exertion. This has been progressively worsening
for the past few months. He had noted in the past 2 weeks that his legs were progressively swelling and weeping. Patient is noncompliant with outpatient follow-up and preventative care. He rarely sees providers as an outpatient. Per he may
have gained about 20 pounds in the last 6 months. He is morbidly obese. Chest x-ray demonstrating very profound low lung volumes. His initial ABG on arrival demonstrating pH 7.2, pCO2 111. Admitted to IMU for BiPAP. He refused overnight. The
patient became more progressively unresponsive throughout the night, rapid response called in IMU. He is now transferred to ICU for intubation.
Acute on chronic hypercarbic respiratory failure -suspect due to obesity hypoventilation syndrome/obstructive sleep apnea.
Noncompliance with preventative care/CPAP
s/p intubation and mechanical ventilation, extubated 04/18/25
Suspect less likely AECOPD
Suspect CHF exacerbation, unknown chronicity
LE edema
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
Obstructive sleep apnea
Morbid (severe) obesity due to excess calories
Chronic obstructive pulmonary disease, no prior PFTs for review
Essential (primary) hypertension
Former smoker
BCC s/p excision 2022
Plan
Respiratory status has improved
Prior history of lung disease: suspect COPD and CARLA but has never seen OP Pulm
Continue supplemental oxygen as needed-assess discharge supplemental oxygen needs-likely will require oxygen at time of discharge-currently on 1 L - 98% saturation
Chronic hypercapnic respiratory insufficiency suspected-possibly undiagnosed obesity hypoventilation syndrome/obstructive sleep apnea
Continue BiPAP 15/8 cm at night and during the daytime as needed-appears to be tolerating
Case management involved for set up as an outpatient
ABG 04/18/25----53/86/7.55
Aspiration precautions
Nebulizers if needed-currently not bronchospastic
Given his smoking history recommend eventual repeating CT chest in 3 months to document complete resolution and rule out lung nodules.
Observe off systemic steroids
Observe off antibiotics
Heart failure with preserved EF-acute on top of chronic
Diuresis as tolerated-currently on Lasix 80 mg orally twice daily
Monitor renal function, electrolytes, intake/output, lower extremity edema and weight
Replace electrolytes as needed
Cardiology following-correspondence reviewed
Eventual ischemia workup
DVT prophylaxis-on Lovenox
Nutrition
Physical therapy-discharge to rehab
Reviewed with case management
Diagnostic Data
Chest X-Ray: 04/16/25- Examination is limited by relatively large body habitus. Lungs appear hypoinflated but clear of consolidation.
US 04/16/25- No evidence of deep venous thrombosis bilaterally.
CT chest 04/17/2025-no pulmonary emboli, distention of pulmonary arteries raising possibility of pulmonary artery hypertension, endotracheal tube in place, mild to moderate patchy consolidation likely atelectasis
Echo: 04/17/25- Normal left ventricular chamber size. Mild concentric left ventricular hypertrophy. Normal left ventricular systolic function. Left ventricular ejection fraction is 55-60% by visual assessment. Flattened septum in systole and
diastole consistent with RV pressure and volume overload. Enlarged right ventricular size. Estimated pulmonary artery pressure of 39 mmHg assuming a right atrial pressure of 8 mmHg. Pulmonic valve is grossly normal but poorly visualized. Normal
pericardium and pleura without evidence of effusion. No prior echocardiograms available for review
Reports and relevant images were personally reviewed.
Subjective Data
-
Date of Service:
Date of Service: April 24, 2025
Chief Complaint: Pulmonary Follow Up (Acute on chronic hypercapnic/hypoxemic respiratory failure) and Dyspnea Follow Up
Subjective:
Tolerated CPAP, no complaints of worsening shortness of breath, chest pain, productive cough, abdominal pain and still on oxygen
Review of Systems
General: Other (Per HPI)
Objective Data
Data Reviewed
Vital Signs / I&O:
Vital Signs
Temp Pulse Resp BP Pulse Ox
98.4 F 79 16 120/66 94
04/24/25 08:18 04/24/25 08:18 04/24/25 08:18 04/24/25 08:18 04/24/25 08:18
Intake and Output
04/23/25 04/24/25 04/25/25
06:59 06:59 06:59
Intake Total 480 / 480 1680 / 1680
Output Total 375 / 375 1825 / 1825
Balance 105 / 105 -145 / -145
SaO2: 94
Nasal Cannula flow liters per minute: 2
Physical Exam
General: Respiratory Distress (n), Comfortable and Other (NAD, morbidly obese)
HEENT: Normocephalic and Anicteric
Cardiovascular: Regular Rhythm and Peripheral Edema
Respiratory: Wheeze (n), Crackles (n), Rhonchi (n), Non-Labored Respirations, Accessory Resp Muscle Use and Stridor (n)
GI: Soft, Non Distended and Non Tender
Neurology: Awake, Alert, Oriented and No Motor Deficits
Skin: Warm, Good Color, Cyanosis (n), Jaundice (n) and Rash
Labs/Micro/Reports
Lab Data
04/24/25 06:56
04/24/25 06:56
--- NOTE | 2025-04-24 10:28 | W.PN.UPDATE ---
Addendum entered and electronically signed by Caesar Bethea MD 04/24/25 16:15:
Total time spent on d/c = 33 min. This included today's physical exam, progress note, review of laboratory and diagnostic data, preparation of discharge documents and prescriptions, and discussions about the pt's hospital course and discharge plan
with the patient and other medical interpreter involved in the patient's care.
Original Note:
Update Note
Progress Note Update
I saw and evaluated the patient. I reviewed the resident�s note and agree with findings and plan as documented in the resident�s note.
No new complaints.
Gen: NAD, awake and alert
Eyes: EOMI, PERRLA, no scleral icterus.
Neck: supple.
CV: remains RRR, +S1/S2, no m/r/g.
Resp: CTAB anteriorly, no rales, wheezes, or rhonchi.
Abd: +BS, soft, NT, ND
Skin: No rashes. remains with UMM bandages on B/L LEs
Neuro: CN 2-12 intact, non-focal.
Psych: Normal mood and affect.
CTA chest: No PE. Pulmonary artery branching order level of the most proximal pulmonary embolism: N/A. Distention of the pulmonary arteries, raising possibility of pulmonary artery hypertension. Borderline right paraesophageal lymph nodes.
Endotracheal tube in place. Mild to moderate patchy consolidation, most likely atelectasis. Pneumonia not entirely excluded.
Echo: Normal left ventricular chamber size.
Mild concentric left ventricular hypertrophy.
Normal left ventricular systolic function.
Left ventricular ejection fraction is 55-60% by visual assessment.
Flattened septum in systole and diastole consistent with RV pressure and volume
overload.
Enlarged right ventricular size.
Estimated pulmonary artery pressure of 39 mmHg assuming a right atrial pressure
of 8 mmHg.
Pulmonic valve is grossly normal but poorly visualized.
Normal pericardium and pleura without evidence of effusion.
No prior echocardiograms available for review
Acute hypercapnic/hypoxemic respiratory failure:
-with underlying chronic CO2 retention due to COPD and CARLA/OHS due to morbid obesity
-due to acute on chronic hypercapnia from COPD/CARLA/OHS and acute HFpEF
-noncompliant with medical care
-pt obtunded 04/17/25 requiring intubation (ABG pH 7.21, PCO2 111, PO299, HCO3 44), now extubated
-Echo above
-s/p course of IV lasix, now transitioned to PO Lasix
-cont ARB/Aldactone/Farxiga
-daily wts, I/Os
-cont BIPAP HS
Other problems:
Elevated troponin due to nonischemic myocardial injury
COPD with chronic CO2 retention: outpt pulm f/u for PFTs
Essential HTN with hypertensive urgency: BPs improved post intubation. cont losartan/Aldactone/lasix.
Claustrophobia/panic disorder: advised patient to follow with psychiatry outpatient. PRN HS ativan for tolerating BiPAP.
Morbid obesity due to excess calorie
Medical noncompliance: Affects all aspects of care. 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 He does not want to pursue tracheostomy but apparently will now be compliant with BiPAP
FULL/Lovenox
Remains medically cleared for d/c. Case management aware.
--- NOTE | 2025-04-24 11:14 | W.PN.HOSP.TC ---
Today's Communication/Plan
-
Medically cleared for discharge. Case management aware.
Assessment / Plan
Assessment / Plan
74-year-old male with a past medical history of hypertension, CARLA, claustrophobia, panic disorder presented to the ED with progressive dyspnea, leg swelling with weeping and weight gain.�Patient has not been compliant to prescription medications/
outpatient follow up in the past. He was diagnosed with acute hypercapnic/hypoxic respiratory failure with elevated blood pressure. Patient intubated on 04/17/25, and extubated on 04/18/2025. Progressed to regular solid and thin liquid diet.
Willing to follow up outpatient.
Assessment and plan:
# COPD with acute hypercapnic respiratory failure�
# Obstructive sleep apnea
# CHF with preserved ejection fraction likely due to untreated CARLA and obesity-hypoventilation syndrome
CT was negative for PE
Echo showed LVEF 55-60%
Patient obtunded 04/17/2025 and required intubation (ABG pH 7.21, PCO2 111, PO2 99, HCO3 44)-now extubated
Cardiology following: Continue diuresis with PO Lasix 80mg BID, spironolactone, Farxiga, losartan, replete K.
Pulmonary medicine following: Continue nocturnal BiPAP 08/27, Increase activity as able, Incentive spirometry encouraged, Eventual radiographic follow-up in the outpatient setting. Patient advised to follow-up outpatient.
Needs in house BiPAP and O2 prior to DC, CM following
# Elevated troponin- likely due to nonischemic myocardial injury� -stable
Serial trops discontinued after they started downtrending�
EKG: NSR with first degree AV block and incomplete RBBB
Cardiology following: Continue IV Lasix, Aldactone, eventual transition to PO
# Right leg pain
Has similar pain at baseline due to lower extremity wounds
Continue Tylenol 500 mg q4hPRN
# Hypertension -with hypertensive urgency
Improved postintubation.
Losartan 25 mg PO restarted after extubation�
#Claustrophobia/panic disorder
Advised follow-up with psychiatry outpatient
PRN HS Ativan for tolerating BiPAP -tolerating 08/27 setting instead of 04/05.
# Morbid obesity
# Non compliance to medications
Affects all aspects of care
Disposition: PT recommends SNF. Hopeful discharge to SNF today with in-house BiPAP/O2, CM following.
DVT Lovenox.
Full code
PCP: Dr. Victoriano Phillips
Anticipated Discharge: Today
Subjective/Interval History
-
Date of Service: April 24, 2025
Patient feeling well. No new symptoms.
Objective Data
-
Labs:
Laboratory Results
04/24/25
06:56
WBC 10.0
Hgb 16.1
Hct 52.6 H
Plt Count 166
Sodium 137
Potassium 4.2
Chloride 92 L
Carbon Dioxide 38 H
BUN 47 H
Creatinine 1.0
Glucose 108 H
Calcium 8.6
Vital Signs:
Vital Signs
Temp Pulse Resp BP Pulse Ox
98.4 F 79 16 120/66 94
04/24/25 08:18 04/24/25 08:18 04/24/25 08:18 04/24/25 08:18 04/24/25 08:58
I&O
04/23/25 04/24/25 04/25/25
06:59 06:59 06:59
Intake Total 480 / 480 1680 / 1680
Output Total 375 / 375 1825 / 1825
Balance 105 / 105 -145 / -145
Review of Systems
-
History Source: Patient
All other systems: Reviewed and negative
Constitutional: Reports No Symptoms
EENT: Reports No Symptoms Reported
Respiratory: Reports No Symptoms
Cardiac: Reports No Symptoms
Abdomen/GI: Reports No Symptoms
Breast: Reports No Symptoms
Genitourinary: Reports No Symptoms
Musculoskeletal: Reports No Symptoms
Skin: Reports No Symptoms
Neuro: Reports No Symptoms
Endocrine: Reports No Symptoms
Physical Exam
-
General: No Apparent Distress, Comfortable, Conversant and Morbidly Obese
HEENT: Normocephalic, Atraumatic, Moist Mucous Membranes and Anicteric
Respiratory: Clear to Auscultation
Cardiac: Regular Rhythm and S1/S2
GI: Soft, Nontender, Nondistended and Normal Bowel Sounds
Musculoskeletal: No Clubbing, No Cyanosis, Edema, Right Lower Extrem and Edema, Left Lower Extrem
Neuro: Awake and AO x 3
Hematologic / Lymphatic: No Lymphadenopathy
Psych: Calm
Data Reviewed
-
Labs: Labs Reviewed by me and Discussed with Physician
Old Records: Reviewed
--- NOTE | 2025-04-24 11:22 | CM ---
Placed call to [employer] and spoke with Dariel Evans who stated that their system is down and he is unsure when it will be restored, therefore he can not review information by phone. He stated that [employer] is working and all requests for post acute care
placements should be entered in that way. 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 Attending and resident updated. Clinicals being entered into [employer] for hopeful auth.
Plan: Case management will continue to follow and assist with discharge planning. Transfer to [facility] when authorization is approved. Bed is available.
[2025-04-24 11:35] LABS: Glucose - Point of Care 111 mg/dl (70-99)
--- NOTE | 2025-04-24 11:54 | CM ---
Skilled rehab Auth initiated with Lynda Man from [facility] P#[id number]
Pended reference # [id number]
clinicals faxed to fax# [phone]
--- NOTE | 2025-04-24 15:13 | CM ---
Addendum entered by MAYA Jacobson 04/24/25 16:24:
# For report [phone] F [phone] Transfer sheet and Med necessity completed for 4e unit technician to set up transfer to [facility]. Details of auth in previous CM note.
Original Note:
Met with patient and his who was at bedside. Provided explanation that patient's insurance needs to provide authorization and they are still in the process of reviewing critical. Patient expressed understanding. Attending updated.
Plan: Case management will continue to follow and assist with discharge planning. Hopeful transfer to [facility] upon receipt of auth.
[2025-04-24] MEDS: TYLENOL 500 MG PO ×2 (15:29→20:45)
--- NOTE | 2025-04-24 15:57 | CM ---
Authorization for skilled Rehab
TC alyssa Matos from [facility], approved skilled rehab
Start date 04/24/25, NRD 04/26/25
Updates to Cely Carreon at fax# [phone]
Authorization # [id number], reference # [id number]
[2025-04-24 16:11] LABS: Glucose - Point of Care 128 mg/dl (70-99)
[2025-04-24] MEDS: LIPITOR 40 MG PO (17:17)
[2025-04-24] MEDS: LOVENOX 40 MG SC (17:17)
--- NOTE | 2025-04-24 18:02 | W.DCSUMMARY ---
Discharge Summary
Discharge Data
Date of Admission: 04/16/25
Date of Discharge: 04/24/25
-
Pending Results: No
Hospital Course
74-year-old male with a past medical history of hypertension, CARLA, claustrophobia, panic disorder presented to the ED with progressive dyspnea, leg swelling with weeping and weight gain.�Patient has not been compliant to prescription medications/
outpatient follow up in the past. He was diagnosed with acute hypercapnic/hypoxic respiratory failure with elevated blood pressure. Patient intubated on 04/17/25 after ABG showed pH 7.21, PCO2 111, PO299, HCO3 44), and extubated on 04/18/2025.
Progressed to regular solid and thin liquid diet. Willing to follow up outpatient. CT was negative for pulmonary embolism. Echo showed LVEF 55 to 60%. Continue diuresis with p.o. Lasix 80 Mg twice daily, spironolactone, Farxiga, losartan.
Patient to continue nocturnal BiPAP 08/27, increase activity as able and incentive spirometry encouraged. EKG showed normal sinus rhythm with first-degree AV block and incomplete RBBB. Patient had intermittent right leg pain which he attributed to
the lower extremity wounds, was given Tylenol 500 mg every 4 hours as needed. Patient's hypertension improved post intubation and losartan 25 mg was started after he was extubated. Advised follow-up with psychiatry outpatient for
claustrophobia/panic disorder. Patient encouraged to follow-up outpatient with pulmonary/PCP for eventual radiographic follow-up in the outpatient setting. Patient is agreeable to following up with PCP. Given instructions on how to follow-up with
[facility] in [place].
Discharge Plan
-
Patient Disposition: Assisted/SNF
Discharge Diagnosis/Procedures: Acute on chronic respiratory failure with hypoxia due to acute on chronic hypercapnia from COPD/CARLA/OHS and acute HFpEF
Condition: Fair
Diet: 2 Gram Sodium and Restrict fluids to 48 oz
Activity: As tolerated
Driving Restrictions: As prior to admission
Blood Work: BMP in 1 week through PCP/cards office
Specialty Instructions: Weigh Daily- Call MD for wt gain/loss 3 lbs overnight/5 lbs in 1 week
Instructions: *DCA Heart Failure Instructions
Referrals:
[facility] [Other, Family Practice] - in less than 1 week
Referral Note: Request Dr. Ashwini Neil to be PCP. Patient needs post-admission follow-up.
Lucy Bautista PA-C [Specified Professional Personl, Cardiology] - 05/23/25 10:40 am
Referral Note: You have a follow up visit at the [place] office. Please call with questions.
Dipika Vigil DO [Active, Pulmonary Medicine] - in four to six weeks
Referral Note: FU BIPAP use, PFT
Prescriptions:
New
docusate sodium 50 mg/5 mL Liquid
100 mg PO BIDPRN PRN (Reason: constipation) Qty: 0 0RF
atorvastatin 40 mg Tablet
40 mg PO QPM Qty: 30 0RF
polyethylene glycol 3350 17 gram Powder In Packet
17 g PO DAILY Qty: 14 0RF
miconazole nitrate [Miconazorb AF] 2 % Powder
1 applic topical BIDPRN PRN (Reason: antifungal) Qty: 1 0RF
acetaminophen [Tylenol Extra Strength] 500 mg Tablet
500 mg PO Q4HPRN PRN (Reason: mild pain) Qty: 30 0RF
spironolactone 25 mg Tablet
25 mg PO DAILY Qty: 30 0RF
furosemide 80 mg Tablet
80 mg PO BID@0800,1600 Qty: 30 0RF
aspirin 81 mg Tablet,Chewable
81 mg PO DAILY Qty: 30 0RF
dapagliflozin propanediol 10 mg Tablet
10 mg PO DAILY Qty: 30 0RF
Continued
losartan 25 mg Tablet
25 mg PO DAILY
Discharge Orders:
Discharge Patient (As Directed); Ordered 04/24/25
Ordered By: Ashwini Neil
Discharge Date and Time
Print Language: PANAMANIAN
--- NOTE | 2025-04-24 20:30 | PTCARENOTE ---
marketing community liaison from [facility] called and stated that the facility is unable to take the patient tonight due to equipment and medications not available. patient will not be able to come until tomorrow.
[2025-04-24 21:37] LABS: Glucose - Point of Care 107 mg/dl (70-99)
[2025-04-24] MEDS: ATIVAN 0.5 MG PO (23:38)
[2025-04-25 00:45] VITALS: PULSE 2
[2025-04-25 00:55] VITALS: PULSE 2
[2025-04-25 04:19] VITALS: PULSE 2
[2025-04-25 06:00] VITALS: BMI 43.8
[2025-04-25 07:00] VITALS: BP 127/72
[2025-04-25 08:02] LABS: Glucose - Point of Care 106 mg/dl (70-99)
[2025-04-25] MEDS: NOVOLOG FLEXPEN-MODERATE RESISTANCE SC (08:11)
[2025-04-25] MEDS: LOW STRENGTH ASPIRIN 81 MG PO (08:13)
[2025-04-25] MEDS: MIRALAX 17 GRAMS PO (08:13)
[2025-04-25] MEDS: LASIX 80 MG PO (08:13)
[2025-04-25] MEDS: FARXIGA 10 MG PO (08:14)
[2025-04-25] MEDS: COZAAR 25 MG PO (08:14)
[2025-04-25] MEDS: ALDACTONE 25 MG PO (08:14)
--- NOTE | 2025-04-25 08:25 | W.PN.PUL.V3 ---
Today's Communication / Plan
-
Respiratory status stable
Tolerating CPAP
Progress with rehab
Wean oxygen
Stable from a pulmonary perspective for proposed discharge with outpatient pulmonary/sleep disorders follow-up
Assessment
-
Patient is a 74-year-old male with previous history of hypertension, anxiety, former smoker with suspected COPD and CARLA (never formally diagnosed) presenting with shortness of breath, worsened with exertion. This has been progressively worsening
for the past few months. He had noted in the past 2 weeks that his legs were progressively swelling and weeping. Patient is noncompliant with outpatient follow-up and preventative care. He rarely sees providers as an outpatient. Per he may
have gained about 20 pounds in the last 6 months. He is morbidly obese. Chest x-ray demonstrating very profound low lung volumes. His initial ABG on arrival demonstrating pH 7.2, pCO2 111. Admitted to IMU for BiPAP. He refused overnight. The
patient became more progressively unresponsive throughout the night, rapid response called in IMU. He is now transferred to ICU for intubation.
Acute on chronic hypercarbic respiratory failure -suspect due to obesity hypoventilation syndrome/obstructive sleep apnea.
Noncompliance with preventative care/CPAP
s/p intubation and mechanical ventilation, extubated 04/18/25
Suspect less likely AECOPD
Suspect CHF exacerbation, unknown chronicity
LE edema
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
Obstructive sleep apnea
Morbid (severe) obesity due to excess calories
Chronic obstructive pulmonary disease, no prior PFTs for review
Essential (primary) hypertension
Former smoker
BCC s/p excision 2022
Plan
Respiratory status has improved
Prior history of lung disease: suspect COPD and CARLA but has never seen OP Pulm
Continue supplemental oxygen as needed-assess discharge supplemental oxygen needs-likely will require oxygen at time of discharge-currently on 1 L - 98% saturation
Chronic hypercapnic respiratory insufficiency suspected-possibly undiagnosed obesity hypoventilation syndrome/obstructive sleep apnea
Continue BiPAP 15/8 cm at night and during the daytime as needed-appears to be tolerating
Case management involved for set up as an outpatient
ABG 04/18/25----53/86/7.55
Aspiration precautions
Nebulizers if needed-currently not bronchospastic
Given his smoking history recommend eventual repeating CT chest in 3 months to document complete resolution and rule out lung nodules.
Observe off systemic steroids
Observe off antibiotics
Heart failure with preserved EF-acute on top of chronic
Diuresis as tolerated-currently on Lasix 80 mg orally twice daily
Monitor renal function, electrolytes, intake/output, lower extremity edema and weight
Replace electrolytes as needed
Cardiology following-correspondence reviewed
Eventual ischemia workup
DVT prophylaxis-on Lovenox
Nutrition
Physical therapy-discharge to rehab-patient stable from a pulmonary perspective for proposed discharge
Reviewed with case management
Diagnostic Data
Chest X-Ray: 04/16/25- Examination is limited by relatively large body habitus. Lungs appear hypoinflated but clear of consolidation.
US 04/16/25- No evidence of deep venous thrombosis bilaterally.
CT chest 04/17/2025-no pulmonary emboli, distention of pulmonary arteries raising possibility of pulmonary artery hypertension, endotracheal tube in place, mild to moderate patchy consolidation likely atelectasis
Echo: 04/17/25- Normal left ventricular chamber size. Mild concentric left ventricular hypertrophy. Normal left ventricular systolic function. Left ventricular ejection fraction is 55-60% by visual assessment. Flattened septum in systole and
diastole consistent with RV pressure and volume overload. Enlarged right ventricular size. Estimated pulmonary artery pressure of 39 mmHg assuming a right atrial pressure of 8 mmHg. Pulmonic valve is grossly normal but poorly visualized. Normal
pericardium and pleura without evidence of effusion. No prior echocardiograms available for review
Reports and relevant images were personally reviewed.
Subjective Data
-
Date of Service:
Date of Service: April 25, 2025
Chief Complaint: Pulmonary Follow Up (Acute on chronic hypercapnic/hypoxemic respiratory failure) and Dyspnea Follow Up
Subjective:
Feels well, tolerated CPAP, no chest congestion, productive cough, was out of bed, participating with rehab
Review of Systems
General: Other (Per HPI)
Objective Data
Data Reviewed
Vital Signs / I&O:
Vital Signs
Temp Pulse Resp BP Pulse Ox
97.8 F 76 18 130/67 96
04/24/25 23:37 04/24/25 23:37 04/24/25 23:37 04/24/25 23:37 04/24/25 23:37
Intake and Output
04/24/25 04/25/25 04/26/25
06:59 06:59 06:59
Intake Total 1680 / 1680 1310 / 1310
Output Total 1825 / 1825 1625 / 1625
Balance -145 / -145 -315 / -315
SaO2: 96
Nasal Cannula flow liters per minute: 1
Physical Exam
General: Respiratory Distress (n), Comfortable and Other (NAD, morbidly obese)
HEENT: Normocephalic and Anicteric
Cardiovascular: Regular Rhythm and Peripheral Edema
Respiratory: Wheeze (n), Crackles (n), Rhonchi (n), Non-Labored Respirations, Accessory Resp Muscle Use and Stridor (n)
GI: Soft, Non Distended and Non Tender
Neurology: Awake, Alert, Oriented and No Motor Deficits
Skin: Warm, Good Color, Cyanosis (n), Jaundice (n) and Rash
[2025-04-25 09:16] LABS: Hematocrit 52.6 % (39.0-52.0); Hemoglobin 16.5 g/dL (13.0-18.0); Mean Corp Hgb Conc. 31.4 g/dL (33.0-37.0); Mean Corpuscular Volume 91.8 fL (80.0-94.0); Platelet Count 151 10^3/uL (130-400); Red Cell Dist. Width 14.0 % (11.5-14.5)
[2025-04-25 09:38] LABS: Blood Urea Nitrogen 41 mg/dl (9-20); Calcium 8.7 mg/dl (8.4-10.2); Carbon Dioxide 35 mmol/L (22-30); Chloride 93 mmol/L (98-107); Estimated Creatinine Clearance 103 ml/min; Glucose 111 mg/dl (70-99); Magnesium 2.4 mg/dl (1.6-2.3); Potassium 4.2 mmol/L (3.5-5.1); Sodium 134 mmol/L (135-145); eGFR > 60.00
--- NOTE | 2025-04-25 09:58 | W.PN.UPDATE ---
Update Note
Progress Note Update
I saw and evaluated the patient. I reviewed the resident�s note and agree with findings and plan as documented in the resident�s note.
No new complaints. Upset that he didn't leave yesterday.
Gen: NAD, awake and alert
Eyes: EOMI, PERRLA, no scleral icterus.
Neck: supple.
CV: continues to remain RRR, +S1/S2, no m/r/g.
Resp: remains CTAB anteriorly, no rales, wheezes, or rhonchi.
Abd: +BS, soft, NT, ND
Skin: No rashes. continues to remain with UMM bandages on B/L LEs
Neuro: CN 2-12 intact, non-focal.
Psych: Normal mood and affect.
CTA chest: No PE. Pulmonary artery branching order level of the most proximal pulmonary embolism: N/A. Distention of the pulmonary arteries, raising possibility of pulmonary artery hypertension. Borderline right paraesophageal lymph nodes.
Endotracheal tube in place. Mild to moderate patchy consolidation, most likely atelectasis. Pneumonia not entirely excluded.
Echo: Normal left ventricular chamber size.
Mild concentric left ventricular hypertrophy.
Normal left ventricular systolic function.
Left ventricular ejection fraction is 55-60% by visual assessment.
Flattened septum in systole and diastole consistent with RV pressure and volume
overload.
Enlarged right ventricular size.
Estimated pulmonary artery pressure of 39 mmHg assuming a right atrial pressure
of 8 mmHg.
Pulmonic valve is grossly normal but poorly visualized.
Normal pericardium and pleura without evidence of effusion.
No prior echocardiograms available for review
Acute hypercapnic/hypoxemic respiratory failure:
-with underlying chronic CO2 retention due to COPD and CARLA/OHS due to morbid obesity
-due to acute on chronic hypercapnia from COPD/CARLA/OHS and acute HFpEF
-noncompliant with medical care
-pt obtunded 04/17/25 requiring intubation (ABG pH 7.21, PCO2 111, PO299, HCO3 44), now extubated
-Echo above
-s/p course of IV lasix, now transitioned to PO Lasix
-cont ARB/Aldactone/Farxiga
-daily wts, I/Os
-cont BIPAP HS
Other problems:
Elevated troponin due to nonischemic myocardial injury
COPD with chronic CO2 retention: outpt pulm f/u for PFTs
Essential HTN with hypertensive urgency: BPs improved post intubation. cont losartan/Aldactone/lasix.
Claustrophobia/panic disorder: advised patient to follow with psychiatry outpatient. PRN HS ativan for tolerating BiPAP.
Morbid obesity due to excess calorie
Medical noncompliance: Affects all aspects of care. Nailing Machine Operator Automatic discussed high risk for respiratory distress/failure and reintubation. He does not want to pursue tracheostomy but apparently will now be compliant with BiPAP
FULL/Lovenox
Remains medically cleared for d/c. Case management aware.
--- NOTE | 2025-04-25 10:11 | W.PN.HOSP.TC ---
Today's Communication/Plan
-
Patient being discharged to SNF today around 12 PM
Assessment / Plan
Assessment / Plan
74-year-old male with a past medical history of hypertension, CARLA, claustrophobia, panic disorder presented to the ED with progressive dyspnea, leg swelling with weeping and weight gain.�Patient has not been compliant to prescription medications/
outpatient follow up in the past. He was diagnosed with acute hypercapnic/hypoxic respiratory failure with elevated blood pressure. Patient intubated on 04/17/25, and extubated on 04/18/2025. Progressed to regular solid and thin liquid diet.
Willing to follow up outpatient.
Assessment and plan:
# COPD with acute hypercapnic respiratory failure�
# Obstructive sleep apnea
# CHF with preserved ejection fraction likely due to untreated CARLA and obesity-hypoventilation syndrome
CT was negative for PE
Echo showed LVEF 55-60%, mild concentric left ventricular hypertrophy, normal left ventricular chamber size, normal left ventricular systolic function, enlarged right ventricular size, estimated pulmonary artery pressure of 39 mmHg
Patient obtunded 04/17/2025 and required intubation (ABG pH 7.21, PCO2 111, PO2 99, HCO3 44)-now extubated
Cardiology consulted: Continue diuresis with PO Lasix 80mg BID, Aldactone, Farxiga, losartan, replete K.
Pulmonology consulted: Continue nocturnal BiPAP 08/27, Increase activity as able, Incentive spirometry encouraged, Eventual radiographic follow-up in the outpatient setting. Patient advised to follow-up outpatient with PFTs
# Elevated troponin- likely due to nonischemic myocardial injury� -stable
Serial trops discontinued after they started downtrending�
EKG: NSR with first degree AV block and incomplete RBBB
Cardiology following: Continue Lasix and Aldactone
# Right leg pain
Has similar pain at baseline due to lower extremity wounds
Continue Tylenol 500 mg q4hPRN
# Hypertension -with hypertensive urgency
Improved postintubation.
Losartan 25 mg PO restarted after extubation�
#Claustrophobia/panic disorder
Advised follow-up with psychiatry outpatient
# Morbid obesity
# Non compliance to medications
Affects all aspects of care
DVT Lovenox.
Full code
PCP: Dr. Victoriano Phillips
Anticipated Discharge: Today
Subjective/Interval History
-
Date of Service: April 25, 2025
Patient has no new complaints. He was supposed to be discharged to a SNF yesterday. As per CM Jarochoe, 'there was a mistake on their/facility and. They did not have the bariatric equipment and they needed despite having all the information days in
advance.' Patient expected to leave around noon today.
Objective Data
-
Labs:
Laboratory Results
04/25/25
09:07
WBC 9.0
Hgb 16.5
Hct 52.6 H
Plt Count 151
Sodium 134 L
Potassium 4.2
Chloride 93 L
Carbon Dioxide 35 H
BUN 41 H
Creatinine 0.9
Glucose 111 H
Calcium 8.7
Vital Signs:
Vital Signs
Temp Pulse Resp BP Pulse Ox
97.5 F 83 16 127/72 93
04/25/25 07:00 04/25/25 07:00 04/25/25 07:00 04/25/25 07:00 04/25/25 09:49
I&O
04/24/25 04/25/25 04/26/25
06:59 06:59 06:59
Intake Total 1680 / 1680 1310 / 1310
Output Total 1825 / 1825 1625 / 1625
Balance -145 / -145 -315 / -315
Review of Systems
-
History Source: Patient
All other systems: Reviewed and negative
Constitutional: Reports No Symptoms
EENT: Reports No Symptoms Reported
Respiratory: Reports No Symptoms
Cardiac: Reports No Symptoms
Abdomen/GI: Reports No Symptoms
Breast: Reports No Symptoms
Genitourinary: Reports No Symptoms
Musculoskeletal: Reports No Symptoms
Skin: Reports No Symptoms
Neuro: Reports No Symptoms
Endocrine: Reports No Symptoms
Hematologic / Lymphatic: Reports No Symptoms
Allergy / Immunology: Reports No Symptoms
Physical Exam
-
General: No Apparent Distress, Comfortable and Morbidly Obese
HEENT: Normocephalic, Atraumatic, Moist Mucous Membranes and Anicteric
Respiratory: Clear to Auscultation
Cardiac: Regular Rhythm and S1/S2
GI: Soft, Nontender, Nondistended and Normal Bowel Sounds
Genito-urinary: No Costovertebral Tender
Musculoskeletal: No Clubbing, No Cyanosis, No Edema, Edema, Right Lower Extrem and Edema, Left Lower Extrem
Neuro: Awake and AO x 3
Hematologic / Lymphatic: No Lymphadenopathy
Psych: Calm
Data Reviewed
-
Labs: Labs Reviewed by me and Discussed with Physician
Old Records: Reviewed
--- NOTE | 2025-04-25 10:21 | CM ---
Received notification from 4e evening ammunition storekeeper that [facility] was unable to take patient last evening as they did not have the bariatric equipment needed, therefore she arranged for transportation for today. They confirmed that they can take
him today. Same # for report and fax. Med necessity and transfer sheet completed and IMM already signed and on chart.
Attending and Resident updated.
Plan: Case management will continue to follow and assist with discharge planning. [facility], today.
[2025-04-25 11:59] VITALS: BP 110/62
[2025-04-25] MEDS: TYLENOL 500 MG PO (12:01)
== END 2025-04-25 12:27 | DRG 208 ==
LOC: 4 EAST ACU 16:28
PROVIDERS: Internal Medicine; Registered Nurse; ADMITTING PHYSICIAN Hospitalist; ATTENDING PHYSICIAN Internal Medicine; CONSULT PHYSICIAN Internal Medicine; EMERGENCY PHYSICIAN Emergency Medicine; OTHER PHYSICIAN Internal Medicine Cardiovascular Disease
PROC: 5A1935Z Respiratory Ventilation, Less than 24 Consecutive Hours (ICD-10-PCS; 2025-04-17)
PROC: 0BH18EZ Insertion of Endotracheal Airway into Trachea, Via Natural or Artificial Opening Endoscopic (ICD-10-PCS; 2025-04-17)
PROC: 5A09357 Assistance with Respiratory Ventilation, Less than 24 Consecutive Hours, Continuous Positive Airway Pressure (ICD-10-PCS; 2025-04-20)
DX: J96.21 Acute and chronic respiratory failure with hypoxia (principal); I50.31 Acute diastolic (congestive) heart failure; E66.2 Morbid (severe) obesity with alveolar hypoventilation; I47.20 Ventricular tachycardia, unspecified; I16.1 Hypertensive emergency; Z99.11 Dependence on respirator [ventilator] status; Z68.42 Body mass index [BMI] 45.0-49.9, adult; J44.1 Chronic obstructive pulmonary disease with (acute) exacerbation; I5A Non-ischemic myocardial injury (non-traumatic); I11.0 Hypertensive heart disease with heart failure; J96.22 Acute and chronic respiratory failure with hypercapnia; E78.00 Pure hypercholesterolemia, unspecified; E87.5 Hyperkalemia; F40.240 Claustrophobia; I25.10 Atherosclerotic heart disease of native coronary artery without angina pectoris; I25.5 Ischemic cardiomyopathy; I44.0 Atrioventricular block, first degree; I45.10 Unspecified right bundle-branch block; Z91.148 Patient's other noncompliance with medication regimen for other reason; Z79.899 Other long term (current) drug therapy; Z87.891 Personal history of nicotine dependence
CPT/HCPCS: 36600; 71045; 71275; 80048; 80053; 80061; 82248; 82805; 82962; 83036; 83735; 83880; 84100; 84443; 84478; 84484; 85025; 85027; 85610; 85730; 87070; 92526; 92610; 93005; 93306; 93970; 94002; 94003; 94640; 94660; 96374; 96375; 97116; 97163; 97167; 97530; 97535; 99285; Q9967